=== PATIENT | female | born 1955 | race Caucasian/White ===

== ENCOUNTER → 2016-05-15 | Outpatient (CLI) | payer BC ==
[~2016-05-15] MED LIST: /MOXI40TA PO; ADV250INH INH; AMIT10TA PO; AMOXICILLIN PO; ASCO500T PO; BIAX500T OR; BIOTCAP PO; CALC600T10 PO; CEFT500T OR; CYMB1CAP PO; DIFL150T PO; DULO30CA PO; FERR324T5 OR; FOLI1TAB OR; FOLI1TAB2 PO; IMIT50TA PO; LEVA500T PO; LEVA750T PO; LORA-376 PO; LORA1TAB OR; LORA1TAB12 PO; METH2.5TA PO; METHOTREXATE OR; NAPR500T2 PO; OMEP20CA3 PO; PAIN325T OR; PERC5TAB8 OR; PRED10PA PO; PRED10TA PO; PRED1TA PO; PROZ40CA OR; PROZ40CA PO; RITU10VLL IV; SUMA50TA2 PO; SYMB16INH INH; VENTAER INH; VICO5TA PO; VITA20002 IM; VITA200038 PO; [UNRECOGNIZED DRUG - CODE] SL; [UNRECOGNIZED DRUG - OTHER] PO
--- NOTE | 2016-05-15 15:15 | REP ---
Clinical: Cough. Technique: PA and lateral. Comparison: 09/20/2015. Findings: Postsurgical changes involving the right hemithorax appear relatively stable. Left hemithorax appears clear. Mediastinum and cardiac silhouette within normal limits. No effusion. No pneumothorax. Skeletal structures intact. Impression: Chronic postsurgical changes involving the right hemithorax. No obvious acute cardiopulmonary process. Signed by Matheus Rawls MD 05/15/2016 03:06 P
== END ==
LOC: M WUC 14:44
PROVIDERS: ATTEND Internal Medicine
DX: R05 Cough (principal)

== ENCOUNTER → 2016-05-15 | Outpatient (REF) | payer BC ==
[2016-05-15 21:34] LABS: EOSINOPHILS 4 % (0-5)
== END ==
LOC: M LAB REF 16:52
PROVIDERS: ATTEND Internal Medicine
DX: R05 Cough (principal); J20.9 Acute bronchitis, unspecified

== ENCOUNTER → 2016-06-13 | Outpatient (REF) | payer BC | LOC: M SFHCLERA 11:21 | PROVIDERS: ATTEND Physician Assistant | DX: J02.9 Acute pharyngitis, unspecified (principal) ==

== ENCOUNTER → 2016-06-27 | Outpatient (CLI) | payer BC ==
--- NOTE | 2016-06-27 10:21 | REP ---
Clinical: Cough. Technique: PA and lateral. Comparison: 05/15/2016. Findings: Mediastinum and cardiac silhouette are normal / stable. Postsurgical pleuroparenchymal changes involving the right hemithorax are similar to prior examination. The left hemithorax appears well aerated and clear. No obvious acute process. No effusion. No pneumothorax. Skeletal structures intact. Impression: Chronic pleuroparenchymal and postsurgical changes involving the right hemithorax similar to prior examination. No obvious acute process. If the patient remains symptomatic consider chest CT for further investigation. Signed by Matheus Rawls MD 06/27/2016 10:13 A
== END ==
LOC: M WUC 09:21
PROVIDERS: ATTEND Internal Medicine
DX: R05 Cough (principal)

== ENCOUNTER → 2016-07-13 | Outpatient (REF) | payer BC ==
[2016-07-13 18:59] LABS: FERRITIN 55 NG/ML (8-252)
[2016-07-13 19:14] LABS: FOLATE > 24.0 NG/ML; VITAMIN B12 LEVEL 1544 PG/ML
== END ==
LOC: M LAB REF 18:13
PROVIDERS: ATTEND Internal Medicine
DX: D64.9 Anemia, unspecified (principal)

== ENCOUNTER 2016-07-25 08:16 | Observation (INO) | payer BC ==
[~2016-07-25] VITALS: Ht 160 cm; Wt 54.6 kg
[2016-07-25] MEDS ORDERED: [UNRECOGNIZED DRUG - CODE] PO (08:49)
[2016-07-25] MEDS ORDERED: ALBU17IN INH (08:49)
[2016-07-25] MEDS ORDERED: SYMB16INH (08:49)
[2016-07-25] MEDS ORDERED: BUPR300T34 PO (08:49)
[2016-07-25] MEDS ORDERED: [UNRECOGNIZED DRUG - CODE] PO (08:49)
[2016-07-25] MEDS ORDERED: ASPIRIN 81 MG CHEW TABLET PO ONE (09:15)
--- NOTE | 2016-07-25 09:31 | ECGEPIP ---
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
--- NOTE | 2016-07-25 09:53 | REP ---
REASON: Chest pain. COMPARISON: Multiple latest 06/27/2016. Chronic right basilar changes are noted status quo. The technique utilized in obtaining the radiograph has magnified the cardiac silhouette and accentuated the interstitial markings. Postoperative changes right hilum status quo with streaky right upper lobe opacities and a surgical staple line in the right apical region and right upper lobe perihilar region, all stable. No change in the appearance of the cardiomediastinal silhouette. There is a new subtle right paratracheal soft tissue density. There are no other significant changes. There is no change in the osseous structures. The heart is not enlarged. IMPRESSION: 1. New but subtle right paratracheal density in the suprahilar region of uncertain etiology. Plain film examination cannot exclude reactive lymphadenopathy. This should be correlated clinically and if necessary obtain contrast enhanced CT. 2. Chronic changes as described above. Signed by Dm Saeed DO 07/25/2016 03:02 P
[2016-07-25 09:56] LABS: ALBUMIN 3.3 GM/DL (3.2-5.2); ALBUMIN/GLOBULIN RATIO 0.87 (1.00-1.93); ALKALINE PHOSPHATASE 84 U/L (45-117); ALT/SGPT 16 U/L (12-78); ANION GAP 6 MEQ/L (8-16); AST/SGOT 11 U/L (15-37); BILIRUBIN,DIRECT 0.1 MG/DL (0.0-0.2); BILIRUBIN,TOTAL 0.4 MG/DL (0.2-1.0); BLOOD UREA NITROGEN 9 MG/DL (7-18); CALCIUM LEVEL 8.6 MG/DL (8.5-10.1); CARBON DIOXIDE LEVEL 28 MEQ/L (21-32); CHLORIDE LEVEL 104 MEQ/L (98-107); CREATININE FOR GFR 0.75 MG/DL (0.55-1.02); GLOMERULAR FILTRATION RATE > 60.0 (>51); GLUCOSE, FASTING 84 MG/DL (70-105); POTASSIUM SERUM 4.2 MEQ/L (3.5-5.1); SODIUM LEVEL 138 MEQ/L (136-145); TOTAL PROTEIN 7.1 GM/DL (6.4-8.2)
[2016-07-25 09:58] LABS: BASO % 0.3 % (0.0-1.0); EOS # 0.7 K/mm3 (0.0-0.50); EOS % 10.5 % (0.0-3.0); LARGE UNSTAINED CELL # 0.1 K/mm3 (0.0-0.4); LARGE UNSTAINED CELL % 1.3 % (0.0-4.0); LYMPH # 0.6 K/mm3 (1.5-4.5); LYMPH % 9.9 % (24.0-44.0); MEAN CORPUSCULAR HEMOGLOBIN 32.1 pg (27.0-33.0); MEAN CORPUSCULAR HGB CONC 33.9 g/dl (32.0-36.5); MEAN CORPUSCULAR VOLUME 94.8 fl (80.0-96.0); MONO # 0.2 K/mm3 (0.0-0.8); MONO % 3.4 % (0.0-5.0); NEUTROPHILS # 4.7 K/mm3 (1.8-7.7); NEUTROPHILS % 74.6 % (36.0-66.0); PLATELET COUNT, AUTOMATED 401 k/mm3 (150-450); RED CELL DISTRIBUTION WIDTH 16.2 % (11.5-14.5); WHITE BLOOD COUNT 6.3 K/mm3 (4.0-10.0)
[2016-07-25] MEDS ORDERED: ISOVUE-370 76% 100ML VIAL (Q9967) As Ordered ONE (10:36)
--- NOTE | 2016-07-25 12:10 | REP ---
CT ANGIOGRAM OF THE CHEST: TECHNIQUE: Axial contrast enhanced images from the thoracic inlet to the upper abdomen using 100 mL Isovue 370 intravenous contrast material with multiplanar reformations. COMPARISON: 08/24/2015. I see no CT evidence of pulmonary embolism. Chronic postsurgical and postradiation changes are again seen on the right unchanged. There is an area of consolidation with associated bronchiectasis in the right upper hemithorax with other areas of scattered fibrotic scarring. A new subpleural nodular density in the left upper lobe posteriorly measures 8 mm in diameter. A new pleural based oval low density mass measures 3.0 x 1.8 cm with surrounding pleural thickening. Nodular density along the inferior left fissure measures 6 x 4 mm. I see no pleural or pericardial effusion. No new adenopathy is seen in the chest. There is no evidence of thoracic aortic aneurysm or dissection. Visualized upper abdominal structures have not definitely changed. There is diffuse thickening of the adrenal glands which appear similar to prior studies. There are degenerative changes of the spine. IMPRESSION: No CT evidence of pulmonary embolism. Three nodular structures left lung are new compared to the prior study of 08/24/2015. Signed by Jaya Horvath MD 07/25/2016 05:25 P
[2016-07-25] MEDS ORDERED: KETOROLAC 30 MG/ML VIAL (J1885) IV ONE (14:00)
[2016-07-25] MEDS ORDERED: FLUO20CA9 PO (14:40)
[2016-07-25] MEDS ORDERED: ASPI1TAB PO (14:43)
[2016-07-25] MEDS ORDERED: META800T82 PO (14:43)
[2016-07-25] MEDS ORDERED: PRAV40TA2 PO (14:43)
[2016-07-25] MEDS ORDERED: ALB2.5NEB INH (14:43)
[2016-07-25] MEDS ORDERED: IPRATROPIUM 0.5MG/ALBUTEROL 2.5MG INH SOL UD 3ML (DUONEB)(J7620) NEB PRN (16:15)
[2016-07-25] MEDS ORDERED: cefTRIAXone SOD 1 GM in D5W MINI-BAG PLUS 50 ML IV SCH (17:00)
--- NOTE | 2016-07-25 17:00 | HPEPDOC ---
General Date of Admission Jul 25, 2016 at 15:58 Primary Care Physician: Lakeshia Hernandez Chief Complaint The patient is a 61-year-old female admitted with a reason for visit of Chest Pain, Dyspnea. Source: Patient Exam Limitations: No limitations Timing/Duration: 4-6 hours History of Present Illness Ms. Magana is a 61 y/o female with past medical history of non-small cell lung cancer status post right lobectomy in 2001, STEMI with cardiac catheterization and stent placement September 2015, rheumatoid arthritis, anxiety, depression, chronic anemia who presents today with a chief complaint of shortness of breath and left shoulder pain that began this morning when she woke up. The patient states that when she woke up she felt short of breath when she tried to ambulate after arising from bed, she also had very severe achy left shoulder pain that made it impossible for her to move her shoulder. The patient denied having associated fever, chest pain, vomiting , sweating or palpitations this morning. She states that she has been nauseous for the past 2 days with decreased appetite and lightheaded for the past 2 months, has lost 21 pounds between 6-8 weeks. She states that she was recently diagnosed with asthmatic bronchitis by her primary care doctor and then she has been coughing for the past month but that it has been getting better. She states she also has been constipated for the past 2 weeks and that her primary care doctor gave her senna which has not helped. Denies blood in stool or urine or pain with urination or defecation. Denies change in vision but states that she does have history of headache/migraine. In regards to her history of lung cancer she was followed by the local pulmonology group and released from the practice in the year [address] exams were stable in regards to her prior lung cancer, she also sees a local bindery helper in surgical specialty center [facility] for her heart history. The patient does not complain of shortness of breath on questioning in ED but does still complain of left shoulder pain; she is unsure if her left shoulder pain is due to her rheumatoid arthritis and admits that she has had some dull achy, stiff left shoulder pain in the same area for the past 2 days, but this morning was at its worst. Home Medications Scheduled Ascorbic Acid (Ascorbic Acid) 500 Mg Tab 500 MG PO DAILY (Reported) Aspirin (Aspirin 81) 81 Mg Tab 81 MG PO DAILY (Reported) Biotin (Vitamin H) (Biotin 5000) 5 Mg Cap 10 MG PO DAILY (Reported) Budesonide/Formoterol (Symbicort 160-4.5 Mcg/Act) 60 Puff/Inhaler Aers 2 PUFFS INH BID (Reported) Bupropion HCl (Bupropion HCl Xl) 300 Mg Tab 300 MG PO DAILY (Reported) Calcium (Calcium) 600 Mg Tab 600 MG PO DAILY (Reported) Cholecalciferol (Vitamin D-3) 2,000 Unit Tab 2,000 UNIT PO DAILY (Reported) Cyanocobalamin (Vitamin B-12) 5,000 Mcg Sub 5,000 MCG SL DAILY (Reported) Fluoxetine Hcl (Fluoxetine HCl) 20 Mg Cap 60 MG PO DAILY (Reported) Folic Acid (Folic Acid) 1 Mg Tab 1 MG PO DAILY (Reported) Lorazepam (Lorazepam) 0.5 Mg Tab 0.5 MG PO QHS (Reported) Metaxalone (Metaxalone) 800 Mg Tab 800 MG PO QHS (Reported) Methotrexate (Methotrexate) 2.5 Mg Tab 15 MG PO QWEEK (Reported) FRIDAYS Omeprazole (Omeprazole) 20 Mg Cap 20 MG PO DAILY (Reported) Prasugrel Hydrochloride (Effient) 5 Mg Tab 5 MG PO DAILY (Reported) Pravastatin Sod (Pravastatin Sodium) 40 Mg Tab 40 MG PO QHS (Reported) Scheduled PRN (Treximet 10-60 mg) 1 Tab Tab 1 TAB PO PRN MIGRAINE (Reported) Albuterol Sulfate (Ventolin Hfa) 200 Puff/8 Gm Aers 2 PUFFS INH QID PRN PRN SHORTNESS OF BREATH (Reported) Albuterol Sulfate (Albuterol Sulfate) 2.5 Mg/0.5 Ml Neb 2.5 MG INH PRN SOB/ WHEEZING (Reported) Allergies Coded Allergies: Sulfa Drugs (Verified Adverse Reaction, Intermediate, GI UPSET, 06/11/13) Past Medical History Medical History Non-small cell lung cancer status post right lobectomy, chemotherapy/radiation 2001 STEMI status post cardiac catheterization and stent placement September 2015 Rheumatoid arthritis Anxiety Depression Chronic anemia Surgical History Tubal ligation Right lobectomy Family History Mother had inflammatory breast cancer Father had hypertension Social History * Smoker: former Smoker (quit 2 years ago, prior to this had a 20 year pack history one pack per day) Alcohol: Denies Drugs: denies Psychosocial History: No pertinent psych hx 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 Review of Symptoms Constitutional: Denies: Chills, Fever Eyes: Denies: Conjunctivae inflammation, Eyelid inflammation, Pain, Vision change ENT: Reports: Head Aches Skin: Denies: Lesions, Rash Pulmonary: Reports: Cough, Dyspnea Cardiovascular: Denies: Chest Pain, Edema, Orthopnea, Palpitations Gastrointestinal: Reports: Constipation, Nausea, Denies: Abdominal Pain, Diarrhea, Vomiting Genitourinary: Denies: Dysuria Musculoskeletal: Reports: Shoulder Pain (left shoulder pain, achy, stiff.) Neurological: Denies: Numbness, Weakness Psych: Reports: Mood Normal Physical Examination General Exam: Positive: Alert, Cooperative, No Acute Distress Eye Exam: Positive: Conjunctiva & lids normal, EOMI, Negative: Ptosis, Sclera icteric ENT Exam: Positive: Nares Patent Neck Exam: Positive: JVD, Supple Chest Exam: Positive: Clear to auscultation, Negative: Rales, Rhonchi, Wheezing Heart Exam: Positive: Normal S1, Normal S2, Rate Normal, Negative: Tachycardic Telemetry: Positive: No significant arrhythmia Abdomen Exam: Positive: Normal bowel sounds, Soft, Negative: BS Hyperactive, BS Hypoactive, Hepatospenomegaly, Tenderness Extremity Exam: Negative: Clubbing, Cyanosis, Edema Psych Exam: Positive: Mental status NL Vital Signs Vital Signs Date Time Temp Pulse Resp B/P Pulse Ox O2 Delivery O2 Flow Rate FiO2 07/25/16 15:40 94 96 07/25/16 14:10 120/60 Laboratory Data Labs 24H Laboratory Tests 2 07/25/16 09:19: Aspartate Amino Transf (AST/SGOT) 11L, Alanine Aminotransferase (ALT/SGPT) 16, Alkaline Phosphatase 84, Total Bilirubin 0.4, Direct Bilirubin 0.1, Albumin 3.3 , Albumin/Globulin Ratio 0.87L, Anion Gap 6L, B-Type Natriuretic Peptide 90.1, White Blood Count 6.3, Red Blood Count 3.61L, Hemoglobin 11.6L, Hematocrit 34.2L , Mean Corpuscular Volume 94.8, Mean Corpuscular Hemoglobin 32.1, Mean Corpuscular Hemoglobin Concent 33.9, Red Cell Distribution Width 16.2H, Platelet Count 401, Neutrophils (%) (Auto) 74.6H, Lymphocytes (%) (Auto) 9.9L, Monocytes (%) (Auto) 3.4, Eosinophils (%) (Auto) 10.5H, Basophils (%) (Auto) 0.3 , Neutrophils # (Auto) 4.7, Lymphocytes # (Auto) 0.6L, Monocytes # (Auto) 0.2, Eosinophils # (Auto) 0.7H, Basophils # (Auto) 0.0, Calcium Level 8.6, Creatine Kinase MB 1.0, Creatine Kinase MB Relative Index 1.20, Glomerular Filtration Rate > 60.0, Large Unclassified Cells # 0.1, Large Unclassified Cells % 1.3, Total Creatine Kinase 83, Total Protein 7.1, Troponin I < 0.02 07/25/16 12:18: Creatine Kinase MB 1.0, Creatine Kinase MB Relative Index 1.44, Total Creatine Kinase 69, Troponin I < 0.02 CBC/BMP Laboratory Tests 07/25/16 09:19 Red Blood Count 3.61 L, Mean Corpuscular Volume 94.8, Mean Corpuscular Hemoglobin 32.1, Mean Corpuscular Hemoglobin Concent 33.9, Red Cell Distribution Width 16.2 H, Neutrophils (%) (Auto) 74.6 H, Lymphocytes (%) (Auto ) 9.9 L, Monocytes (%) (Auto) 3.4, Eosinophils (%) (Auto) 10.5 H, Basophils (%) (Auto) 0.3, Neutrophils # (Auto) 4.7, Lymphocytes # (Auto) 0.6 L, Monocytes # ( Auto) 0.2, Eosinophils # (Auto) 0.7 H, Basophils # (Auto) 0.0 Problems (1) Dyspnea Status: Acute Response to Treatment: Stable Problem Text: The patient does not appear short of breath on exam Chest x-ray and subsequent CT chest showed new lung nodular structures, new from prior study in August 2015 SOB possibly secondary to pneumonia will began antibiotic therapy & see if pt improves in next 24 hrs First set of troponins negative, will trend EKG ordered for AM, first EKG in ED no sign of NH or arrhythmia Fibreglass Gun Hand nonfarm animal caretaker spoken to, recommend observing pt and performing serial enzymes, cardiac markers ECHO pending Aspiring, Effient and pravastatin continue home meds BNP 90.1 Patient does not appear edematous on exam minimal JVD appreciated DuoNeb ordered as needed Patient does not wear oxygen at home (2) CAP (community acquired pneumonia) Status: Acute Response to Treatment: Stable Problem Text: Possible source of dyspnea CXR and f/u CT showed new nodular structures in lung, new from prior comparative study August 2015 begin antibiotic therapy & monitor for improvement in next 24 hours blood,urine and sputum cx pending afebrile, WBC 6.3 (3) Shoulder pain Status: Acute Response to Treatment: Stable Problem Text: Ibuprofen for pain Left shoulder x-ray pending CXR and f/u CT in ED showed new nodular structures in lung, not there from prior study August 2015 EKG in emergency department appeared without concern for NH or arrhythmia etiology Echo pending continue home methotrexate for RA continue to monitor (4) History of lung cancer Status: Chronic Response to Treatment: Stable Problem Text: s/p right lobectomy 2001 and chemo/radiation treatment spoke to thermite bomb loader nonfarm animal caretaker, recommended work up outpt. once pt is d/c- may include PET scan or biopsy for further evaluation. Imaging in ED showed new nodular lung structures continue to monitor (5) Anxiety Status: Chronic Response to Treatment: Stable Problem Text: Continue home medications (6) Rheumatoid arthritis Status: Chronic Response to Treatment: Stable Problem Text: Continue methotrexate (7) Anemia Status: Chronic Response to Treatment: Stable Problem Text: h/h stable 11.6/34.2 (8) Depression Status: Chronic Response to Treatment: Stable Problem Text: Continue home medications (9) DVT prophylaxis Status: Acute Problem Text: SCD teds Plan / VTE VTE Prophylaxis Ordered?: Yes GME ATTESTATION GME ATTESTATION My preceptor for this patient encounter was physically present in the building during the encounter and was fully available. As needed, all aspects of the patient interview, examination, medical decision making process, and medical care plan development were reviewed and approved by the preceptor. Preceptor is aware and concurs with the plan as stated in the body of this note and will attest to such by his/her cosignature. COLE ZHANG DO Jul 25, 2016 17:00
--- NOTE | 2016-07-25 17:56 | REP ---
LEFT SHOULDER, THREE VIEWS: HISTORY: Shoulder pain. There is no acute fracture or dislocation. The joint spaces are normal in appearance. IMPRESSION: There is no acute fracture or dislocation. Signed by Isaiah Davis MD 07/26/2016 08:24 A
[2016-07-25] MEDS: DOXYCYCLINE HYCLATE 100 MG in D5W MINI-BAG PLUS 100 ML IV SCH (18:00)
[2016-07-25] MEDS ORDERED: ACETAMINOPHEN 325 MG TAB As Ordered ONE (19:05)
[2016-07-25] MEDS: ACETAMINOPHEN TAB 650MG DOSE (2X325MG) PO PRN (19:17)
[2016-07-25] MEDS ORDERED: METAXALONE 800 MG TABLET PO SCH (21:00)
[2016-07-25] MEDS ORDERED: LORazepam 0.5 MG TAB PO SCH (21:00)
[2016-07-25] MEDS ORDERED: PRAVASTATIN 20 MG TAB PO SCH (21:00)
[2016-07-25 22:25] VITALS: BP 112/57
[2016-07-25] MEDS: IBUPROFEN 400 MG TAB PO SCH (22:27)
[2016-07-26] VITALS: BP 121/56
[2016-07-26 04:00] VITALS: BP 117/55
[2016-07-26] MEDS ORDERED: ACETAMINOPHEN TAB 650MG DOSE (2X325MG) As Ordered ONE (04:12)
[2016-07-26] MEDS: ACETAMINOPHEN TAB 650MG DOSE (2X325MG) PO PRN (04:14)
--- NOTE | 2016-07-26 07:31 | ECGEPIP ---
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
[2016-07-26 07:41] LABS: BASO % 0.3 % (0.0-1.0); EOS # 0.8 K/mm3 (0.0-0.50); LARGE UNSTAINED CELL # 0.1 K/mm3 (0.0-0.4); LARGE UNSTAINED CELL % 1.7 % (0.0-4.0); LYMPH # 0.6 K/mm3 (1.5-4.5); LYMPH % 10.3 % (24.0-44.0); MEAN CORPUSCULAR HGB CONC 32.7 g/dl (32.0-36.5); MONO # 0.2 K/mm3 (0.0-0.8); MONO % 3.5 % (0.0-5.0); NEUTROPHILS # 4.5 K/mm3 (1.8-7.7); NEUTROPHILS % 72.2 % (36.0-66.0); PLATELET COUNT, AUTOMATED 381 k/mm3 (150-450); RED CELL DISTRIBUTION WIDTH 16.4 % (11.5-14.5); WHITE BLOOD COUNT 6.2 K/mm3 (4.0-10.0)
[2016-07-26 07:59] LABS: ANION GAP 6 MEQ/L (8-16); BLOOD UREA NITROGEN 11 MG/DL (7-18); CALCIUM LEVEL 8.4 MG/DL (8.5-10.1); CARBON DIOXIDE LEVEL 26 MEQ/L (21-32); CHLORIDE LEVEL 108 MEQ/L (98-107); CREATININE FOR GFR 0.77 MG/DL (0.55-1.02); GLOMERULAR FILTRATION RATE > 60.0 (>51); GLUCOSE, FASTING 86 MG/DL (70-105); POTASSIUM SERUM 4.3 MEQ/L (3.5-5.1); SODIUM LEVEL 140 MEQ/L (136-145)
[2016-07-26 08:00] VITALS: BP 118/58
[2016-07-26] MEDS: IBUPROFEN 400 MG TAB PO SCH (08:42)
[2016-07-26] MEDS: DOXYCYCLINE HYCLATE 100 MG in D5W MINI-BAG PLUS 100 ML IV SCH (08:43)
[2016-07-26] MEDS ORDERED: buPROPion **XL** TABLET 150MG (WELLBUTRIN XL) PO SCH (09:00)
[2016-07-26] MEDS ORDERED: PRASUGREL 10 MG TAB (EFFIENT) PO SCH (09:00)
[2016-07-26] MEDS ORDERED: ASPIRIN 81 MG ENTERIC TAB PO SCH (09:00)
[2016-07-26] MEDS ORDERED: FLUoxetine 20 MG CAP PO SCH (09:00)
[2016-07-26] MEDS ORDERED: OMEPRAZOLE 20 MG CAP PO SCH (09:00)
[2016-07-26 12:00] VITALS: BP 133/63
[2016-07-26] MEDS ORDERED: DOXY-278 PO (14:06)
[2016-07-26] MEDS ORDERED: IBUP40TA PO (14:06)
--- NOTE | 2016-07-26 15:37 | DSES ---
DATE OF ADMISSION: 07/25/2016 DATE OF DISCHARGE: 07/26/2016 PRIMARY CARE PROVIDER: Dr. Santoyo. AMBULANCE MECHANIC: [facility]. ADMISSION/DISCHARGE DIAGNOSES: 1. Left-sided chest pain, ruled out acute coronary syndrome. 2. Recurrent bronchitis, symptomatically stable. 3. Dyspnea, resolved. 4. Right shoulder pain, resolved. 5. Pulmonary nodules with history of lung cancer. 6. Anxiety. 7. Rheumatoid arthritis. 8. Anemia. 9. Depression. BRIEF HOSPITAL COURSE: Ms. Magana is a 61-year-old female admitted last evening for dyspnea with chest pain radiating to the left arm. She does have a previous history of myocardial infarction (PA) that she had stent placement at [facility] in 2001. She has not had a cardiac catheterization since then, nor has she had a stress test. At any rate, her CT angiogram of the chest was negative for pulmonary embolism (PE) but it did show new nodular densities with recommendation of followup for either a CT scan or PET scan sometime in the next few months. Her EKG showed no changes. Her troponins remained negative through the night and she can followup with Dr. Henderson as an outpatient for this. The case was discussed with Dr. Richardson. As far as further workup for suspicious lung nodules, he suggested that she followup outpatient and if there was a suspected underlying bronchitis or pneumonia to finish treatment for this first. Again, symptomatically, her symptoms have resolved. For further information regarding intake physical, laboratories, diagnostics, please refer to the history and physical. PHYSICAL EXAMINATION: Temperature 98.1, pulse 96, respiratory rate 18, blood pressure 133/63, SPO2 is 98% on room air. GENERAL: The patient appears to be in no acute distress, is alert and oriented. HEENT: Unremarkable. LUNGS: Clear. HEART: Regular rate and rhythm. ABDOMEN: Soft. EXTREMITIES: No edema. No calf tenderness. LABORATORY DATA: White count 6.2, hemoglobin 10.8, and platelets are 381,000. Sodium 140, potassium 4.3, chloride 108, bicarbonate 26, anion gap 6, BUN 11, creatinine 0.77, glucose is 86, troponin less than 0.02 on four occasions. Blood cultures pending times two. DISCHARGE CONDITION: Good. DISPOSITION: Discharge to home. DISCHARGE MEDICATIONS: - doxycycline 100 mg twice a day for seven more days - ibuprofen 400 mg twice a day as needed - Ventolin inhaler as directed - albuterol nebulizer as directed - vitamin C 500 mg daily - aspirin 81 mg daily - biotin 10 mg daily - Symbicort 160/4.5 mcg two inhalations twice a day - Wellbutrin 300 mg daily - calcium 600 mg daily - vitamin D3 2000 units daily - vitamin B12 5000 mcg sublingually daily - fluoxetine 60 mg by mouth daily - folic acid 1 mg daily - lorazepam 0.5 mg at bedtime - metaxalone 800 mg at bedtime - methotrexate 15 mg weekly - omeprazole 20 mg daily - Effient 5 mg daily - pravastatin 40 mg at bedtime - Treximet 10/60 mg as needed for migraines DISCHARGE INSTRUCTIONS: Discharge to home. Followup with her primary care provider within the next week, Dr. Henderson or cardiology at [facility] within the next 1-2 weeks, and followup with outpatient pulmonology group within the next 1-2 weeks for further delineation of workup either with PET scan, CT scan or biopsy of questionable nodules found on CT angiogram of the chest. She is instructed to seek out medical attention if worsening symptoms should occur. She voices understanding. Discharge took 35 minutes.
--- NOTE | 2016-07-26 21:07 | ECHO ---
DATE OF PROCEDURE: 07/26/2016 REFERRING PHYSICIAN: Adriana Ni MD PATIENT LOCATION: Emergency Department, room 18 REASON FOR ECHOCARDIOGRAM: Shortness of breath. 2D MEASUREMENTS: IVS: 0.9 cm LV: 4.3 cm LVPW: 1.0 cm LA: 3.0 cm Aorta: 2.7 cm IVC: 1.5 cm DOPPLER MEASUREMENTS: Peak velocity across the aortic valve: 1.3 m/s Peak velocity across the LVOT: 0.79 m/s Mitral E: 0.72, Mitral A: 0.95, with a ratio of 0.8 2D COMMENTS: 1. Normal left ventricular size, wall thickness and normal global left ventricular systolic function. Left ventricular systolic ejection fraction is estimated at 60 to 65%. 2. Normal left atrium. Normal right atrium and right ventricle. 3. The atrial septum appeared to be normal without evidence of defect or shunt. 4. Normal aortic root. 5. No pericardial effusion seen. 6. Minimally calcified aortic valve with normal leaflet excursion. Minimally calcified mitral annulus with normal anterior mitral valve leaflet motion. Normal tricuspid valve. The pulmonic valve was not well visualized. 7. The inferior vena cava was normal in size, central venous pressure is most likely normal. DOPPLER: It detects mild aortic regurgitation, trace mitral regurgitation, trace tricuspid regurgitation. Abnormal relaxation pattern was noted across the mitral valve leaflets as well as the mitral valve annulus consistent with grade 1 left ventricular diastolic dysfunction. IMPRESSION: 1. Normal global left ventricular systolic function. There are features of left ventricular diastolic dysfunction manifested by abnormal relaxation, grade 1. 2. Aortic valve sclerosis with mild aortic regurgitation. 3. Mitral annulus calcification with trace mitral regurgitation. MTDD
--- NOTE | 2016-07-27 15:56 | ECGEPIP ---
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
[2016-07-28] MEDS ORDERED: METHOTREXATE 2.5 MG TAB (J8610) PO SCH (21:00)
== END 2016-07-26 14:02 | disposition home or self-care (01) ==
LOC: M ED 12:29 → M ED INP 15:58
PROVIDERS: ADMIT Internal Medicine; ATTEND Hospitalist
DX: R07.89 Other chest pain (principal); R06.00 Dyspnea, unspecified; M25.511 Pain in right shoulder; R91.8 Other nonspecific abnormal finding of lung field; Z85.118 Personal history of other malignant neoplasm of bronchus and lung; F41.9 Anxiety disorder, unspecified; M06.9 Rheumatoid arthritis, unspecified; D64.9 Anemia, unspecified; F32.9 Major depressive disorder, single episode, unspecified; I25.2 Old myocardial infarction; Z98.61 Coronary angioplasty status
CPT/HCPCS: 36415; 71010; 71275; 73030; 80048; 80076; 82550; 82553; 83880; 85025; 87040; 93005; 93041; 94760; 96365; 96366; 96367; 96375; 99291; J0696; J1885; Q9967

== ENCOUNTER → 2016-08-23 | Outpatient (CLI) | payer BC ==
[~2016-08-23] MED LIST changes: +ALB2.5NEB INH; +ALBU17IN INH; +ASPI1TAB PO; +BUPR300T34 PO; +DOXY-278 PO; +FLUO20CA9 PO; +IBUP40TA PO; +META800T82 PO; +PRAV40TA2 PO; +SYMB16INH; +[UNRECOGNIZED DRUG - CODE] PO; +[UNRECOGNIZED DRUG - CODE] PO
--- NOTE | 2016-08-23 14:29 | REP ---
MR BRAIN WITHOUT AND WITH CONTRAST: HISTORY: Altered mental status. Contrast: ProHance 10 mL. COMPARISON: 06/12/2002 There are no areas of abnormal signal intensity in the brain. There is no intraparenchymal hemorrhage, infarct, mass or midline shift. 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 There is no abnormal enhancement. A small __developmental__ venous anomaly is present in the right cerebellum. The ventricular system and cortical sulci are dilated consistent with mild volume loss. There is no extracerebral collection. The sinuses are clear. IMPRESSION: Mild volume loss. ? Signed by Isaiah Davis MD 08/23/2016 02:42 P
--- NOTE | 2016-08-23 15:02 | REP ---
PET/CT: History: Stage III B non-small cell lung carcinoma. Altered mental status. Comparisons: Comparison PET-CT study April 14, 2010. Comparison CT study of the chest July 25, 2016 showed new nodular densities in the left chest. Postop changes on the right. TECHNIQUE: 60 minutes following the intravenous injection of a 8.0 mCi dose of F-18 FDG, three-dimensional PET scintigraphy is acquired from the skull base to the proximal thighs. Triplanar noncontrast CT scanning is acquired through the same anatomic range for attenuation correction, and image registration with scan parameters optimized to minimize radiation exposure to the patient. PET scintigraphy and CT datasets were fused and displayed on a workstation with multiplanar and projection display capability. PET/CT Findings: The posterior segment left upper lobe nodule 8 mm in diameter seen on accompanying CT study shows mildly hypermetabolic uptake with maximum standard uptake value of 2.2. There is hypermetabolic uptake in the posterior pleural-based lesion in the right lower lobe. Maximum standard uptake value in this lesion is 4.9. There is some linear mildly hypermetabolic uptake extending in the associated pleural thickening extending lateral to this lesion posteriorly. The tiny nodule in the major fissure at the left base seen on recent CT study is not hypermetabolic. There is a normal size amanda focus of hypermetabolic uptake in the left inferior and posterior hilus with maximum standard uptake value 4.1. There is more linear pleural hypermetabolic uptake inferiorly and posteromedially in the left lung base consistent with pleural disease, maximum standard uptake value 3.7. No other abnormal thoracic hypermetabolic uptake is seen. Head and neck soft tissues are unremarkable. In the abdomen and pelvis, there are small bilateral hypermetabolic adrenal masses. Maximum standard uptake value in the right adrenal mass is 7.5 and that in the left is 4.4. These are suspicious for metastasis. They are unchanged from the recent prior chest CT. No other abnormal abdominal or pelvic hypermetabolic uptake is seen. Impression: Pulmonary parenchymal and pleural hypermetabolic uptake in the left chest as well as bilateral hypermetabolic small adrenal masses suspicious for metastatic disease. These are new findings from the 2010 prior study. Signed by Luis Orosco MD 08/23/2016 03:50 P
== END ==
LOC: M PLARAD 08:25 → M RAD 08:25
PROVIDERS: ATTEND Internal Medicine Pulmonary Disease
DX: R93.7 Abnormal findings on diagnostic imaging of other parts of musculoskeletal system (principal); R19.09 Other intra-abdominal and pelvic swelling, mass and lump; R26.89 Other abnormalities of gait and mobility
CPT/HCPCS: 70553; 78815; A9552; A9576

== ENCOUNTER → 2016-08-31 | Outpatient (REF) | payer BC ==
[2016-08-31 14:22] LABS: INR 1.04
== END ==
LOC: M LAB REF 13:12
PROVIDERS: ATTEND Internal Medicine Pulmonary Disease
DX: Z01.812 Encounter for preprocedural laboratory examination (principal); R91.8 Other nonspecific abnormal finding of lung field

== ENCOUNTER → 2016-09-06 | Outpatient (CLI) | payer BC ==
--- NOTE | 2016-09-06 14:10 | REP ---
WHOLE BODY RADIONUCLIDE BONE SCAN: HISTORY: Left shoulder pain. History of stage III B non-small cell lung carcinoma. Comparison PET-CT study August 23, 2016. TECHNIQUE: 20.7 mCi of technetium 99m MDP is injected and standard whole body bone scan imaging is acquired. No comparison bone scan. FINDINGS: There is a focus of rather intensely increased uptake involving the left-sided pedicle at the T12 vertebral body. This is suspicious for metastatic lesion. There is also asymmetric uptake in the region of the manubrium on the left side near the manubrio-clavicular joint. There is a focus of increased uptake in the region of the ischium on the left. There is some joint space narrowing and sclerosis here on recent CT study and this may relate to arthritis. This is suspicious. There is no abnormal or asymmetric uptake in either shoulder. There is also an area of focally increased uptake in what appears to be the third metacarpophalangeal joint of the right hand. There is a mild levoconvex curvature in the lumbar spine. There is uptake in bilateral kidneys and in the urinary bladder. IMPRESSION: Two suspicious foci of increased bony uptake involving the left pedicle at T12 and the left inferior pubic ramus or ischium in the pelvis. Arthritic uptake in the left manubrio-clavicular joint and in the right hand. Signed by Luis Orosco MD 09/06/2016 04:31 P
--- NOTE | 2016-09-15 12:47 | REP ---
CT GUIDED LEFT LOWER LOBE LUNG BIOPSY: The procedure was performed under the direct supervision of Dr. Horvath. The patient has a history of a 3 x 1.8 cm oval low density mass seen in the left lower lobe on a previous CT scan dated 07/25/2016. The risks and benefits of the procedure were explained to the patient and informed consent was obtained. The left lower lobe lung mass was localized using CT guidance. The skin was prepped and draped in a sterile fashion. 1% Xylocaine was used as a local anesthetic. Using CT guidance, a 19/20 gauge coaxial needle biopsy system was inserted and advanced into the mass. Four core biopsy samples were obtained and sent to the lab. The patient tolerated the procedure well and there were no immediate complications. After the appropriate amount of monitored convalescence, the patient was discharged from the department. Reviewed by JACINTO Corral 09/15/2016 03:50 PEdited and Signed by Jaya Horvath MD 09/15/2016 05:28 P
== END ==
LOC: M RAD 09:34
PROVIDERS: ATTEND Internal Medicine Pulmonary Disease
DX: R93.7 Abnormal findings on diagnostic imaging of other parts of musculoskeletal system (principal)

== ENCOUNTER → 2016-09-15 | Outpatient (CLI) | payer BC ==
[~2016-09-15] MED LIST changes: +LIDOCAINE 1% MDV 20ML VIAL As Ordered ONE
== END ==
LOC: M RADPRO 08:38
PROVIDERS: ATTEND Internal Medicine Pulmonary Disease
DX: D38.1 Neoplasm of uncertain behavior of trachea, bronchus and lung (principal); R91.8 Other nonspecific abnormal finding of lung field; Z88.2 Allergy status to sulfonamides; F17.210 Nicotine dependence, cigarettes, uncomplicated

== ENCOUNTER → 2016-10-04 | Outpatient (CLI) | payer BC ==
[~2016-10-04] MED LIST changes: +AMOX875T2 PO; +ASPI81TAEC PO; +AUGM875T28 PO; +BENZ100C5 PO; +CALC1TAB30 PO; -CALC600T10 PO; +CALC600T31 PO; +CLOT1CRE TOP; +DEXA4TA PO; +FLUO20CA19 PO; -FLUO20CA9 PO; +FLUO60TA PO; -FOLI1TAB2 PO; +FOLI1TAB4 PO; +LEVA0.636 INH; +LEVA1TAB2 PO; -LEVA500T PO; -LEVA750T PO; +LEVA750T7 PO; -LORA-376 PO; +LORA0.5T11 PO; +META1TAB22 PO; -META800T82 PO; +NAPR500T3 PO; +NITR4TASL SL; +ONDA8TAB7 PO; +OXYC-517 PO; +PRED10TA2 PO; +PRED20TA PO; +PRED5TA PO; +PROC10TA PO; +RIZA10TA4 PO; +SUMA25TA3 PO; +VITA-193 PO; +[UNRECOGNIZED DRUG - CODE] SL; -[UNRECOGNIZED DRUG - CODE] SL
--- NOTE | 2016-10-04 16:36 | REP ---
CT GUIDED RIGHT ADRENAL MASS BIOPSY: The procedure was performed under the direct supervision of Dr. Orosco. The patient has a history of bilateral hypermetabolic small adrenal masses seen on a previous PET scan performed on 08/23/2016. The risks and benefits of the procedure were explained to the patient and informed consent was obtained. The right adrenal mass was localized using CT guidance. The skin was prepped and draped in a sterile fashion. 1% Xylocaine was used as a local anesthetic. Using CT guidance a 19/20 gauge coaxial needle biopsy system was inserted and then advanced into the mass. 12 core biopsy samples were obtained and sent to the lab. The patient tolerated the procedure well and there were no immediate complications. After the appropriate amount of monitored convalescence the patient was discharged from the department. Reviewed by JACINTO Corral 10/04/2016 04:39 PEdited and Signed by Luis Orosco MD 10/04/2016 05:01 P
== END ==
LOC: M RADPRO 08:12
PROVIDERS: ATTEND Internal Medicine Pulmonary Disease
DX: C79.71 Secondary malignant neoplasm of right adrenal gland (principal); Z85.118 Personal history of other malignant neoplasm of bronchus and lung; Z87.891 Personal history of nicotine dependence; Z88.2 Allergy status to sulfonamides; Z79.899 Other long term (current) drug therapy; Z79.82 Long term (current) use of aspirin

== ENCOUNTER 2016-11-09 19:10 | Inpatient (IN) | payer BC ==
[~2016-11-09] VITALS: Ht 157.5 cm; Wt 54.6 kg
[~2016-11-09 19:10] MED LIST changes: -AMOX875T2 PO; -ASPI81TAEC PO; -AUGM875T28 PO; -BENZ100C5 PO; -CALC1TAB30 PO; -CLOT1CRE TOP; -DEXA4TA PO; -FLUO60TA PO; -LEVA0.636 INH; -LIDOCAINE 1% MDV 20ML VIAL As Ordered ONE; -NITR4TASL SL; -ONDA8TAB7 PO; -OXYC-517 PO; -PRED10TA2 PO; -PRED20TA PO; -PRED5TA PO; -PROC10TA PO; -RIZA10TA4 PO; -SUMA25TA3 PO; -VITA-193 PO
[2016-11-09] MEDS ORDERED: NS 500 ML IV ONE (20:15)
[2016-11-09] MEDS ORDERED: ACETAMINOPHEN 325 MG TAB PO ONE (20:15)
[2016-11-09] MEDS ORDERED: KETOROLAC 30 MG/ML VIAL (J1885) IV ONE (20:15)
[2016-11-09 20:36] LABS: BASO % 0.3 % (0.0-1.0); EOS % 9.4 % (0.0-3.0); LARGE UNSTAINED CELL # 0.1 K/mm3 (0.0-0.4); LARGE UNSTAINED CELL % 0.7 % (0.0-4.0); LYMPH # 0.3 K/mm3 (1.5-4.5); LYMPH % 2.8 % (24.0-44.0); MEAN CORPUSCULAR HEMOGLOBIN 29.5 pg (27.0-33.0); MEAN CORPUSCULAR HGB CONC 32.3 g/dl (32.0-36.5); MEAN CORPUSCULAR VOLUME 91.3 fl (80.0-96.0); MONO # 0.2 K/mm3 (0.0-0.8); MONO % 1.6 % (0.0-5.0); NEUTROPHILS # 8.7 K/mm3 (1.8-7.7); NEUTROPHILS % 85.2 % (36.0-66.0); PLATELET COUNT, AUTOMATED 527 k/mm3 (150-450); RED CELL DISTRIBUTION WIDTH 15.5 % (11.5-14.5); WHITE BLOOD COUNT 10.2 K/mm3 (4.0-10.0)
[2016-11-09 20:37] LABS: VENOUS BASE EXCESS 1.3 (-2.0-2.0); VENOUS O2 SATURATION 93.5 % (60.0-80.0); VENOUS PARTIAL PRESSURE CO2 38.4 mmHg (38.0-50.0); VENOUS PARTIAL PRESSURE O2 66.1 mmHg (30.0-50.0); VENOUS STANDARD HCO3 25.6 MEQ/L; VENOUS TOTAL CO2 26.6 MEQ/L (24.0-28.0)
[2016-11-09 20:45] LABS: INR 1.05
[2016-11-09 20:59] LABS: ANION GAP 7 MEQ/L (8-16); BLOOD UREA NITROGEN 14 MG/DL (7-18); CALCIUM LEVEL 8.5 MG/DL (8.5-10.1); CARBON DIOXIDE LEVEL 25 MEQ/L (21-32); CHLORIDE LEVEL 108 MEQ/L (98-107); GLOMERULAR FILTRATION RATE > 60.0 (>51); GLUCOSE, FASTING 99 MG/DL (70-105); SODIUM LEVEL 140 MEQ/L (136-145)
[2016-11-09] MEDS ORDERED: VANCOMYCIN HCL 1,000 MG, VIAL MATE ADAPTER 1 EACH in D5W 250 ML IV ONE (21:00)
[2016-11-09] MEDS ORDERED: IMIPENEM/CILASTATIN 500 MG in D5W MINI-BAG PLUS 100 ML IV ONE (21:00)
[2016-11-09] MEDS: METAXALONE 800 MG TABLET PO SCH (21:00)
--- NOTE | 2016-11-09 21:03 | ECGEPIP ---
Stationary ECG Study [facility] - ED Test Date: 2016-11-09 Pat Name: CHICO NICHOLS Department: Room: - Gender: F [employer] Work[employer]: taty : 1955 Requested By: MICH DE LA ROSA Order Number: [id number] Reading MD: Isabel Daniels Measurements Intervals [place] Rate: 120 P: 42 PA: 119 QRS: 53 QRSD: 84 T: 54 QT: 328 QTc: 464 Interpretive Statements SINUS TACHYCARDIA WITH SHORT PA INTERVAL ABNORMAL RHYTHM ECG INCREASED RATE 07/26/16 Electronically Signed On 11-09-2016 21:03:00 EDT by Isabel Daniels
[2016-11-09] MEDS ORDERED: LEVALBUTEROL HFA 45MCG/ACT 15 GM INHALER INH PRN (23:00)
[2016-11-09] MEDS ORDERED: ASPI81TAEC PO (23:29)
[2016-11-09] MEDS ORDERED: FLUO60TA PO (23:29)
[2016-11-09] MEDS ORDERED: VITA-193 PO (23:29)
[2016-11-09] MEDS ORDERED: LORA1TAB12 PO (23:29)
[2016-11-09] MEDS ORDERED: OXYC-517 PO (23:30)
[2016-11-09] MEDS ORDERED: PRED5TA PO (23:30)
[2016-11-09] MEDS ORDERED: ISOVUE-370 76% 100ML VIAL (Q9967) As Ordered ONE (23:50)
[2016-11-10 00:20] LABS: FERRITIN 104 NG/ML (8-252)
[2016-11-10 00:21] LABS: MAGNESIUM LEVEL 1.8 MG/DL (1.8-2.4); PERCENT SATURATION 5.1 % (13.2-45.0); TOTAL IRON BINDING CAPACITY 216 UG/DL (250-450)
--- NOTE | 2016-11-10 00:50 | REPUSA ---
CLINICAL HISTORY: Dyspnea, elevated d-dimers, exclude PE. TECHNIQUE: Multiple incremental axial, coronal and oblique images are obtained from the thoracic inle t to the upper abdomen. Intravenous contrast material was administered as per pulmonary embolism prot ocol. COMMENTS: Changes from prior right lobectomy. Traction bronchiectatic changes in the right lung apex. Moderate paraseptal emphysema. Bilateral diffuse groundglass densities of the lungs. Multiloculated small left pleural effusion. Small left free-flowing right pleural effusion. There is excellent opacification of pulmonary arterial system without evidence for pulmonary embolism . Aorta is of normal caliber without evidence for dissection or aneurysm. There is no evidence of pleural or parenchymal mass. There is no evidence of hilar or mediastinal lym phadenopathy. The heart and great vessels are within normal limits. Images of the upper abdomen demonstrate no evidence of adrenal mass. The bony structures are free of lytic or blastic lesions. Multilevel degenerative changes are seen in volving the visualized thoracolumbar spine. Scattered calcifications are seen involving the aorta and major branches compatible with atherosclero sis. IMPRESSION: No evidence for pulmonary embolism. Pleural effusions. Right lobectomy. Traction bronchiectasis in the right upper lobe with associated consolidation. Bilateral atelectatic airspace disease of the lower lobes. Multifocal ground glass densities of the lungs. Possibly multifocal pneumonia. Clinical evaluation an d followup are suggested to exclude an associated/underlying neoplastic pathology. Thank you for your kind referral of this patient.
[2016-11-10 01:16] LABS: ALBUMIN 2.7 GM/DL (3.2-5.2); ALBUMIN/GLOBULIN RATIO 0.75 (1.00-1.93); ALT/SGPT 10 U/L (12-78); AST/SGOT 6 U/L (15-37); BILIRUBIN,DIRECT 0.1 MG/DL (0.0-0.2); BILIRUBIN,TOTAL 0.3 MG/DL (0.2-1.0); TOTAL PROTEIN 6.3 GM/DL (6.4-8.2)
[2016-11-10 01:22] LABS: ALKALINE PHOSPHATASE 94 U/L (45-117)
[2016-11-10] MEDS: methylPREDNISolone INJ 125 MG/2 ML VIAL (J2930) IV SCH ×3 (01:30→16:45)
[2016-11-10 02:00] VITALS: BP 114/53
[2016-11-10] MEDS: LEVALBUTEROL 1.25 MG/0.5 ML CONCENTRATE NEB NEB SCH ×4 (02:00→20:00)
[2016-11-10] MEDS: VANCOMYCIN HCL 1,000 MG, VIAL MATE ADAPTER 1 EACH in D5W 250 ML IV SCH ×2 (02:03→13:07)
[2016-11-10] MEDS: LORazepam 1 MG TAB PO SCH ×2 (02:07→21:08)
[2016-11-10] MEDS: PRAVASTATIN 20 MG TAB PO SCH ×2 (02:08→21:08)
--- NOTE | 2016-11-10 04:26 | PHACANCOPD ---
PHARMACY VANCOMYCIN DOSING Pt Demographics Demographics Patient Age:61 , Weight:59.600 , Gender: female Adjusted Body Weight Date: 11/10/16, Adjusted Body Weight: [78.06] Kg Vancomycin Vancomycin indication: HCAP Vancomycin Target Ranges: 10-20 mcg/ml Vancomycin Load Y/N: Yes Load Dose Date Time Vancomycin Load Dose: 2GM Date: 11/09 Time: 2200 Vancomycin Dose Date: 11/10/16. Current Vancomycin Dose: [1G IV Q12H] Intermittent Dosing?: No Labs Labs Laboratory Tests 11/09/16 20:21 Red Blood Count 3.17 L, Mean Corpuscular Volume 91.3, Mean Corpuscular Hemoglobin 29.5, Mean Corpuscular Hemoglobin Concent 32.3, Red Cell Distribution Width 15.5 H, Neutrophils (%) (Auto) 85.2 H, Lymphocytes (%) (Auto ) 2.8 L, Monocytes (%) (Auto) 1.6, Eosinophils (%) (Auto) 9.4 H, Basophils (%) ( Auto) 0.3, Neutrophils # (Auto) 8.7 H, Lymphocytes # (Auto) 0.3 L, Monocytes # ( Auto) 0.2, Eosinophils # (Auto) 1.0 H, Basophils # (Auto) 0.0, Calcium Level 8.5 , Total Creatine Kinase 36 Micro Microbiology 11/09/16 Blood Culture, Received Pending 11/10/16 Influenza Virus Type A Antigen - Final, Complete 11/10/16 Influenza Virus Type B Antigen - Final, Complete 11/10/16 MRSA Screen, Received Pending 11/09/16 Urine Culture, Received Pending Creatinine Clearance Date:11/10/16. Creatinine Clearance: [93].CALCULATED Pending Labs VANCOMYCIN TROUGH DUE 11/11@1200 Assessment and Plan Maintaining Current Dose?: Yes Reason for dose change: No Dose Change Pharmacist Note Pharmacist Note Date: 11/10/16. Pharmacist note:61yof,SCR=0.8,120KG,62",CALCULATED CRCL=93, ALLERGY:SULFA, TREATINE HCAP W/ PIP/TAZO 3.375 Q6H AND VANCOMYCIN PER PHARMACY CONSULT.VANCO 1 GM IN ED@2230,THEN 1 GM ADDITIONAL ON FLOOR TO COMPLETE 2 GRAM LOAD,REGIMEN OF 1 GM IV Q12H CONTUING.FIRST TROUGH ENTERED FOR 11/11@1200: WILL CONTINUE TO FOLLOW [facility] Nov 10, 2016 04:26
--- NOTE | 2016-11-10 04:40 | HPE ---
DATE OF ADMISSION: 11/09/2016 TIME: Patient was seen at 0030 PRIMARY CARE PROVIDER: Dr. Hernandez. BOTTOM CAGER/ONCOLOGIST: Dr. Ibanez at [place]. The patient is establishing with Dr. Hathaway, has appointment for this morning. CHIEF COMPLAINT: Increased shortness of breath and left-sided chest pain. HISTORY OF PRESENT ILLNESS: Patient is a 61-year-old female with a past medical history of small-cell lung cancer status post right lobectomy in 2001 with recent recurrence and metastasized to adrenal gland and bones, diagnosed this July, myocardial infarction (IN) status post percutaneous coronary intervention (PCI) and stent times one back in September 2015, rheumatoid arthritis, anxiety, depression , chronic anemia, presented today with fever of 101 and increased shortness of breath, also left-sided chest pain. Per patient, the left-sided chest pain started 2 weeks ago and it is mostly burning sensation; however, the fever just started this afternoon around 6 p.m. She measured at home temperature was 101.3 and she also started feeling chills about 2 p.m. In addition, she just went to [place] earlier today for infusion of chemotherapy Keytruda at around 10 a.m. Then she drove 3 hours back to [place]. Patient also recently resigned from her job just yesterday due to worsening cancer. She denies the pain was exertional and does not increase with movement or breathing. Patient stated that her discomfort currently is at least 8/10. Denies any coughing or sputum production. Denies any abdominal pains, any nausea, vomiting, diarrhea, constipation, blood in the stool. Denies any blood in the urine, dysuria, urinary urgency. Denies any swelling in extremities. Patient denies use of oxygen at home and was fully independent until this afternoon. ALLERGIES: Patient is allergic to SULFA drugs, which gives her gastrointestinal (GI) upset. HOME MEDICATIONS: - Ventolin two puff inhalation four times a day as needed - albuterol sulfate 2.5 mcg inhalation four times a day as needed - ascorbic acid 500 mg one tablet by mouth daily - aspirin 81 mg by mouth daily - biotin 10 mg by mouth daily - Symbicort 16/4.5 mcg two puff inhalation twice a day - bupropion 300 mg one tablet by mouth daily - calcium 600 mg by mouth daily - vitamin D3 2000 units by mouth daily - vitamin B12 500 mcg by mouth daily - fluoxetine 60 mg by mouth daily - folic acid 1 mg by mouth once weekly - lorazepam 1 mg by mouth nightly - metaxalone 800 mg one tablet by mouth nightly - methotrexate 15 mg by mouth weekly - omeprazole 20 mg by mouth daily - oxycodone 5 mg by mouth four times a day as needed - Effient 5 mg by mouth daily - pravastatin 40 mg by mouth at bedtime - prednisone 10 mg by mouth daily as needed - Treximet 10/60 mg one tablet by mouth as directed PAST MEDICAL HISTORY: 1. Small-cell cancer of the lung status post right lobectomy and chemotherapy, radiation therapy in 2001 with recurrence in July 2016 with metastases to adrenal gland and bones. 2. ST-segment elevation myocardial infarction (STEMI) status post PCI and stent in September 2015. 3. Rheumatoid arthritis. 4. Asthmatic bronchitis. 5. Anxiety. 6. Depression. 7. Chronic anemia. 8. Chronic pain. 9. Vitamin deficiency. 10. Gastroesophageal reflux disease (GERD). 11. Hyperlipidemia. PAST SURGICAL HISTORY: 1. Tubal ligation. 2. Right lobectomy. 3. Colonoscopy several years ago. SOCIAL HISTORY: Patient used to smoke, quit 13 years ago, used to smoke half pack per day for 20 years. Denies any drinking or recreational drug use. FAMILY HISTORY: Patient's mother had inflammatory breast cancer and father had hypertension. REVIEW OF SYSTEMS: GENERAL: Patient admits to recent traveling to [place] driving 3 hours to [place] then 3 hours back for chemotherapy Keytruda. Denies any sick contact. Admits to recent hospitalization back in July. Admits to fever and chills. Denies any recent weight changes. HEENT: Denies any changes with vision, smell, hearing or taste. Denies any trouble swallowing or cough. CARDIOVASCULAR: Admits to left-sided chest pain. Denies exertional chest pain. Admits to trouble breathing. Denies any palpitations. PULMONARY: Admits to recently diagnosed asthmatic bronchitis. Admits to shortness of breath that is worse than usual. Patient does not use oxygen at home. GASTROINTESTINAL (GI): Denies any abdominal pains, nausea, vomiting, diarrhea, constipation, any blood in the stool. Had a normal colonoscopy a few years back. GENITOURINARY (): Denies any dysuria, burning on urination, urinary urgency, blood in the urine. MUSCULOSKELETAL: Admits to rheumatoid arthritis, which was painful, especially in the hands and also in her other joints. Admits to left-sided chest pain that was burning in sensation per patient has been going on for 2 weeks. HEMATOLOGY/ONCOLOGY: Patient has stage IV lung cancer with metastases to adrenal gland and bones. Patient had a lobectomy of right lung back in 2001. DERMATOLOGICAL: Denies any rash on the skin. NEUROLOGICAL: Denies any weakness on any one side of her body, any change of sensations. PSYCHIATRIC: Admits to anxiety and depression. PHYSICAL EXAMINATION: VITAL SIGNS: Temperature 101, pulse 121, respirations 24, blood pressure 126/58 , oxygen was saturating at 89% on room air initially, and saturation improved to 97% on 3 liters of nasal cannula. GENERAL: Patient is a pleasant elderly female who was alert, awake, and oriented times three. Does not appear to be in distress lying comfortably in bed with head elevated at 30 degrees. HEENT: Normocephalic, atraumatic. Extraocular motor intact. Mucosa moist. NECK: Supple, no neck lymphadenopathy. CARDIOVASCULAR: Tachycardic, normal S1, S2, no murmurs. LUNGS: There were diffuse inspiratory rales and also expiratory wheezing bilaterally. ABDOMEN: Positive bowel sounds, soft, nontender. No peritoneal signs. No ecchymosis. EXTREMITIES: No edema, clubbing, or cyanosis. SKIN: Warm and dry. NEUROLOGIC: Cranial nerves II-XII intact. No focal neurological deficit. LABORATORY DATA: WBC 10.2, hemoglobin 9.3, hematocrit 28.9 with platelet count of 527, and MCV of 91.3. Neutrophil percentage was 85%, lymphocytes 2.8, eosinophils 9.4, neutrophils 8.7, lymphocytes 0.3, monocytes 0.2, eosinophil 1. Sodium 140, potassium 4, chloride 108, bicarbonate 25, anion gap 7, BUN 14, creatinine 0.8, GFR greater than 60, fasting glucose 99, lactic acid 1, calcium 8.5, magnesium 1.8, iron 11, TIBC 216, transferrin percentage saturation was 5.1 , ferritin 104, total bilirubin 0.3, direct bilirubin 0.1, AST 6, ALT 10, alkaline phosphatase is pending, total creatinine 36, CK-MB 1, troponin less than 0.02, BNP is pending, total protein 6.3, albumin 2.7. B12 and folate are pending. Patient had a venous blood gas in the emergency room shows pH 7.43, pCO2 38.4, pO2 66.1, oxygen was 93%. Coagulation panel shows PT 13.8, INR 1.05, PTT 36.6. Patient had a urinalysis that shows 1+ blood, 2 urobilinogen, 43 RBCs. Fluid culture is pending. Urine Legionella, Streptococcus pneumoniae are pending. Influenza was negative. Methicillin-resistant Staphylococcus aureus (MRSA) screening is pending. Blood culture, urine cultures are pending. Patient had a portable chest x-ray done in the emergency room. Official result is pending. Patient did have CT angiography of the chest that shows no evidence of PE, pleural effusion and right lobectomy, traction bronchiectasis in the right upper lobe with associated consolidation, bilateral atelectatic airspace disease of the lower lobes. Multifocal ground-glass density of the lung, possibly multifocal pneumonia. ASSESSMENT AND PLAN: 61-year-old female with a past medical history of stage IV lung cancer metastasized to adrenal gland and bones, history of myocardial infarction (IN) status post percutaneous coronary intervention (PCI) and stent, rheumatoid arthritis, anxiety, depression, asthmatic bronchitis, chronic anemia, chronic pain, vitamin deficiency, presented with: 1. Fever with increased shortness of breath and possible multifocal pneumonia with possible sepsis due to tachycardia, tachypnea and fever. Vancomycin and Zosyn were started in the emergency room. Will continue. In addition, patient does have wheezing and rales bilaterally. Possible exacerbation of asthmatic bronchitis versus reaction from chemotherapy this morning. Therefore, will start Solu-Medrol 60 mg intravenous (IV) every 8 hours and will continue to monitor. Patient currently is on oxygen 3 liters nasal cannula; however, she does not use any oxygen at home. At this point, will titrate her oxygen between 88 and 92% and continue to monitor patient. 2. Left-sided chest pain. Rule out acute coronary syndrome (ACS). Cardiac marker has been negative so far and patient's history does not appear to be cardiac due to no chest pain on exertion and shortness of breath does not increase with exertion. The pain was not positional, was constant and has been there for 2 weeks, initially felt due to cancer. Therefore, will not continue to trend the cardiac marker. However, will restart patient's home medications for aspirin and prasugrel, as well as statin and continue to monitor patient. If patient continues to be tachycardic, possibly will consider adding a beta graciela. 3. Chronic anemia. Hemoglobin 9.3. Iron panel has been done. Does show a mixed picture with possible mixed iron deficiency anemia with anemia of chronic disease. B12 and folate is currently pending. Will followup. 4. History of IN with stents. Continue aspirin, prasugrel, statin, and continue to monitor patient. 5. History of rheumatoid arthritis. Continue methotrexate and the patient is on IV steroid for asthmatic bronchitis exacerbation. 6. Anxiety/depression. Continue home medications. 7. Deep venous thrombosis (DVT) prophylaxis. On heparin 5000 units subcutaneously every 8 hours. 8. Fluid, electrolytes and diet. Patient is on a diet with no added salt. DISPOSITION: Patient has a fever and chills with increased shortness of breath possibly secondary to hospital-acquired pneumonia versus exacerbation of her asthma versus a reaction from Keytruda. PE has been ruled out with a CT angiogram of the chest. Will continue to followup with cultures and deescalate as needed. In addition, Dr. Hathaway from hematology/oncology has been consulted. We appreciate her help. Will contact her in the morning. Otherwise, morning attending for the patient is Dr. Cornejo. My preceptor for this patient encounter was Dr. Janet Garcia. The preceptor was physically present in the building during the encounter and was fully available as needed. All aspects of the patient interview, examination, medical decision making process, and medical care plan development were reviewed and approved by the preceptor. The preceptor is aware and concurs with the plan as stated in the body of this note and will attest to such by his/her co-signature. SAMUEL
[2016-11-10] MEDS: HEPARIN SOD (PORCINE) 5000 UNITS/ML VIAL SC SCH ×3 (05:53→21:09)
[2016-11-10 06:00] VITALS: BP 104/55
[2016-11-10 06:48] LABS: ALBUMIN 2.6 GM/DL (3.2-5.2); ALKALINE PHOSPHATASE 94 U/L (45-117); ALT/SGPT 9 U/L (12-78); ANION GAP 10 MEQ/L (8-16); AST/SGOT 8 U/L (15-37); BILIRUBIN,DIRECT 0.2 MG/DL (0.0-0.2); BILIRUBIN,TOTAL 0.5 MG/DL (0.2-1.0); BLOOD UREA NITROGEN 12 MG/DL (7-18); CALCIUM LEVEL 8.6 MG/DL (8.5-10.1); CARBON DIOXIDE LEVEL 24 MEQ/L (21-32); CHLORIDE LEVEL 111 MEQ/L (98-107); CREATININE FOR GFR 0.61 MG/DL (0.55-1.02); GLOMERULAR FILTRATION RATE > 60.0 (>51); GLUCOSE, FASTING 128 MG/DL (70-105); POTASSIUM SERUM 4.2 MEQ/L (3.5-5.1); SODIUM LEVEL 145 MEQ/L (136-145); TOTAL PROTEIN 6.3 GM/DL (6.4-8.2)
[2016-11-10 06:50] LABS: BASO % 0.1 % (0.0-1.0); EOS # 0.1 K/mm3 (0.0-0.50); EOS % 0.7 % (0.0-3.0); LARGE UNSTAINED CELL % 0.3 % (0.0-4.0); LYMPH # 0.2 K/mm3 (1.5-4.5); LYMPH % 1.3 % (24.0-44.0); MEAN CORPUSCULAR HEMOGLOBIN 29.2 pg (27.0-33.0); MEAN CORPUSCULAR HGB CONC 31.6 g/dl (32.0-36.5); MEAN CORPUSCULAR VOLUME 92.5 fl (80.0-96.0); MONO # 0.1 K/mm3 (0.0-0.8); MONO % 1.2 % (0.0-5.0); NEUTROPHILS # 11.4 K/mm3 (1.8-7.7); NEUTROPHILS % 96.5 % (36.0-66.0); PLATELET COUNT, AUTOMATED 536 k/mm3 (150-450); RED CELL DISTRIBUTION WIDTH 15.6 % (11.5-14.5); WHITE BLOOD COUNT 11.8 K/mm3 (4.0-10.0)
--- NOTE | 2016-11-10 07:30 | REP ---
PA and lateral chest: Comparison is 06/27/2016. There are surgical clips in the right hilus, elevation of the right hemidiaphragm and volume loss in the right hemithorax compatible with upper lobectomy. Additionally there is a surgical staple line in the apex of the right lung. All of these findings are stable and unchanged. The costophrenic angles are effaced suggestive of bilateral pleural effusions. Cardiac size is normal. The visualized lung bone otherwise clear. Signed by Jaya Booker MD 11/10/2016 07:22 A
[2016-11-10] MEDS ORDERED: PRASUGREL 10 MG TAB (EFFIENT) PO SCH (09:00)
[2016-11-10] MEDS ORDERED: METHOTREXATE 2.5 MG TAB (J8610 PER 2.5MG) PO SCH (09:00)
[2016-11-10] MEDS ORDERED: BIOTIN 5 MG PO SCH (09:00)
[2016-11-10] MEDS: SYMBICORT 160/4.5MCG INHALER 6GM INH SCH ×2 (09:14→21:00)
[2016-11-10] MEDS: FLUoxetine 20 MG CAP PO SCH (09:30)
[2016-11-10] MEDS: buPROPion **XL** TABLET 150MG (WELLBUTRIN XL) PO SCH (09:30)
[2016-11-10] MEDS: CALCIUM CARBONATE 500 MG CHEW U/D PO SCH (09:30)
[2016-11-10] MEDS: VITAMIN D 1,000 INTERNATIONAL UNITS TABLET PO SCH (09:30)
[2016-11-10] MEDS: LACTOBACILLUS ACIDOPHILUS CAP (BACID) PO SCH ×2 (09:30→16:45)
[2016-11-10] MEDS: ASCORBIC ACID 500 MG TAB PO SCH (09:30)
[2016-11-10] MEDS: PIPERACILLIN/TAZOBACTAM SOD 3.375 GM in D5W MINI-BAG PLUS 50 ML IV SCH ×3 (09:30→21:08)
[2016-11-10] MEDS: OMEPRAZOLE 20 MG CAP PO SCH (09:31)
[2016-11-10] MEDS: CYANOCOBALAMIN 500 MCG TAB PO SCH (09:31)
[2016-11-10] MEDS: FOLIC ACID 1 MG TAB PO SCH (09:31)
[2016-11-10 10:02] LABS: FOLATE 8.9 NG/ML (>5.4); VITAMIN B12 LEVEL 1459 PG/ML (247-911)
[2016-11-10] MEDS: ACETAMINOPHEN TAB 650MG DOSE (2X325MG) PO PRN ×2 (11:42→16:48)
[2016-11-10] MEDS: oxyCODONE 5MG TAB PO PRN ×2 (11:43→16:50)
[2016-11-10 14:00] VITALS: BP 124/59
[2016-11-10] MEDS: METAXALONE 800 MG TABLET PO SCH (21:08)
[2016-11-10 22:00] VITALS: BP 124/60
[2016-11-11] MEDS: VANCOMYCIN HCL 1,000 MG, VIAL MATE ADAPTER 1 EACH in D5W 250 ML IV SCH ×2 (01:10→13:27)
[2016-11-11] MEDS: methylPREDNISolone INJ 125 MG/2 ML VIAL (J2930) IV SCH ×2 (01:10→20:39)
[2016-11-11] MEDS: LEVALBUTEROL 1.25 MG/0.5 ML CONCENTRATE NEB NEB SCH ×4 (01:29→20:00)
[2016-11-11] MEDS: PIPERACILLIN/TAZOBACTAM SOD 3.375 GM in D5W MINI-BAG PLUS 50 ML IV SCH ×2 (02:39→09:19)
[2016-11-11] MEDS: ONDANSETRON 4MG/2ML VIAL (J2405) IV PRN ×3 (02:56→20:40)
[2016-11-11] MEDS: oxyCODONE 5MG TAB PO PRN (02:56)
[2016-11-11 06:00] VITALS: BP 107/57
[2016-11-11] MEDS: HEPARIN SOD (PORCINE) 5000 UNITS/ML VIAL SC SCH ×3 (06:05→22:07)
[2016-11-11 06:08] LABS: EOS % 0.1 % (0.0-3.0); LARGE UNSTAINED CELL % 0.1 % (0.0-4.0); LYMPH # 0.2 K/mm3 (1.5-4.5); LYMPH % 1.1 % (24.0-44.0); MEAN CORPUSCULAR HEMOGLOBIN 29.7 pg (27.0-33.0); MEAN CORPUSCULAR HGB CONC 31.7 g/dl (32.0-36.5); MEAN CORPUSCULAR VOLUME 93.6 fl (80.0-96.0); MONO # 0.2 K/mm3 (0.0-0.8); MONO % 1.3 % (0.0-5.0); NEUTROPHILS # 15.9 K/mm3 (1.8-7.7); NEUTROPHILS % 97.3 % (36.0-66.0); PLATELET COUNT, AUTOMATED 545 k/mm3 (150-450); RED CELL DISTRIBUTION WIDTH 15.6 % (11.5-14.5); WHITE BLOOD COUNT 16.3 K/mm3 (4.0-10.0)
[2016-11-11 06:10] LABS: ALBUMIN 2.2 GM/DL (3.2-5.2); ALBUMIN/GLOBULIN RATIO 0.52 (1.00-1.93); ALKALINE PHOSPHATASE 81 U/L (45-117); ALT/SGPT 7 U/L (12-78); ANION GAP 9 MEQ/L (8-16); AST/SGOT 6 U/L (15-37); BILIRUBIN,DIRECT < 0.1 MG/DL (0.0-0.2); BILIRUBIN,TOTAL 0.3 MG/DL (0.2-1.0); BLOOD UREA NITROGEN 15 MG/DL (7-18); CALCIUM LEVEL 9.2 MG/DL (8.5-10.1); CARBON DIOXIDE LEVEL 25 MEQ/L (21-32); CHLORIDE LEVEL 109 MEQ/L (98-107); CREATININE FOR GFR 0.69 MG/DL (0.55-1.02); GLOMERULAR FILTRATION RATE > 60.0 (>51); GLUCOSE, FASTING 141 MG/DL (70-105); POTASSIUM SERUM 3.7 MEQ/L (3.5-5.1); SODIUM LEVEL 143 MEQ/L (136-145); TOTAL PROTEIN 6.4 GM/DL (6.4-8.2)
[2016-11-11] MEDS: SYMBICORT 160/4.5MCG INHALER 6GM INH SCH ×2 (07:56→19:35)
[2016-11-11] MEDS ORDERED: MORPHINE 2 MG/ML 1ML SYRINGE IV PRN (08:45)
[2016-11-11] MEDS: ASCORBIC ACID 500 MG TAB PO SCH (09:18)
[2016-11-11] MEDS: OMEPRAZOLE 20 MG CAP PO SCH (09:19)
[2016-11-11] MEDS: LACTOBACILLUS ACIDOPHILUS CAP (BACID) PO SCH ×2 (09:19→20:38)
[2016-11-11] MEDS: CYANOCOBALAMIN 500 MCG TAB PO SCH (09:19)
[2016-11-11] MEDS: VITAMIN D 1,000 INTERNATIONAL UNITS TABLET PO SCH (09:19)
[2016-11-11] MEDS: FLUoxetine 20 MG CAP PO SCH (09:19)
[2016-11-11] MEDS: CALCIUM CARBONATE 500 MG CHEW U/D PO SCH (09:19)
--- NOTE | 2016-11-11 09:22 | IPNPDOC ---
Subjective Date Seen The patient was seen on 11/11/16. Subjective Chief Complaint/HPI The patient is a 61-year-old female admitted with a reason for visit of Hospital Acquired Bacterial Pneumonia. General: Denies: ROS Unobtainable, Chills, Night Sweats, Fatigue, Malaise, Normal Appetite, Other Symptoms Constitutional: Denies: Chills, Fever, Malaise, Night Sweats, Weakness, Fatigue , Weight Loss, Lethargy, Other Eyes: Denies: Pain, Vision change, Conjunctivae inflammation, Eyelid inflammation, Redness, Other ENT: Denies: Head Aches, Ear Pain, Dysphagia, Sinus Congestion, Post Nasal Drip , Sore Throat, Epistaxis, Other Symptoms Skin: Denies: Rash, Lesions, Jaundice, Bruising, Itching, Dry, Breakdown, Nail Changes, Other Pulmonary: Reports: Cough, Denies: Dyspnea, Pleuritic Chest Pain, Other Symptoms Cardiovascular: Denies: Chest Pain, Palpitations, Orthopnea, Paroxysmal Noc. Dyspnea, Edema, Lt Headedness, Other Symptoms Gastrointestinal: Denies: Nausea, Vomiting, Abdominal Pain, Diarrhea, Constipation, Melena, Hematochezia, Other Symptoms Genitourinary: Denies: Dysuria, Frequency, Incontinence, Hematuria, Retention, Other Symptoms Objective Physical Examination General Exam: Positive: Alert, Cooperative, No Acute Distress Eye Exam: Positive: Conjunctiva & lids normal, EOMI, Negative: Sclera icteric ENT Exam: Positive: Atraumatic Chest Exam: Positive: Diminished Heart Exam: Positive: Rate Normal Abdomen Exam: Positive: Normal bowel sounds, Soft, Negative: Tenderness Extremity Exam: Negative: Edema Psych Exam: Positive: Oriented x 3 Assessment /Plan Problems (1) Pneumonia Status: Acute Response to Treatment: Improving Discussed With: Patient Problem Specific Plan: Monitor Clinically Problem Text: acute hypoxic respiratory failure - multifactorial - wean O2 CT angio negative for PE Continue with IV antibiotics. Sputum culture/gram stain pending. Respiratory panel negative. MRSA screen pending - will D/C vanco if negative. Likely complicated with pneumonitis - continue IV steroids - taper. 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 S/p Autumntrshanika 11/09/16, next session 3 weeks. (3) Rheumatoid arthritis Status: Chronic Problem Text: MTX on hold for concern of exacerbating pneumonitis. (4) STEMI (ST elevation myocardial infarction) Status: Chronic Problem Text: s/p PCI (5) Hyperlipidemia Status: Chronic Problem Text: continue pravastatin (6) Anxiety Status: Chronic Discussed With: Patient Problem Text: Continue lorazepam, (7) Depression Status: Chronic Discussed With: Patient Problem Text: buproprion, prozac (8) Anemia Status: Chronic Response to Treatment: Stable Problem Specific Plan: Repeat Labs Plan/VTE VTE Prophylaxis Ordered?: Yes Plan Diet: Continue Current Activity: Continue Current Medications: Taper Steroids Respiratory: Wean Oxygen Diagnostics: Repeat Labs in AM, Obtain Cultures Anticipated Discharge: Home Continue with IV antibiotics. Cultures/MRSA screen pending to de-escalate antibiotics. Wean O2. VS, I&O, 24H, Fishbone Vital Signs/I&O Vital Signs Date Time Temp Pulse Resp B/P (MAP) Pulse Ox O2 Delivery O2 Flow Rate FiO2 11/11/16 06:00 97.1 99 20 107/57 (74) 90 Nasal Cannula 2.0 I&O- Last 24 Hours up to 6 AM 11/11/16 06:00 Intake Total 410 ml Output Total 1050 ml Balance -640 ml Laboratory Data 24H LABS Laboratory Tests 2 11/10/16 11:52: Total Creatine Kinase 25L, Creatine Kinase MB 1.0, Creatine Kinase MB Relative Index 4.00, Troponin I < 0.02 11/11/16 05:07: White Blood Count 16.3H, Red Blood Count 3.12L, Hemoglobin 9.2L, Hematocrit 29.2L, Mean Corpuscular Volume 93.6, Mean Corpuscular Hemoglobin 29.7, Mean Corpuscular Hemoglobin Concent 31.7L, Red Cell Distribution Width 15.6H, Platelet Count 545H, Neutrophils (%) (Auto) 97.3H, Lymphocytes (%) (Auto) 1.1L, Monocytes (%) (Auto) 1.3, Eosinophils (%) (Auto) 0.1, Basophils (%) (Auto) 0.0, Neutrophils # (Auto) 15.9H, Lymphocytes # (Auto) 0.2L, Monocytes # (Auto) 0.2, Eosinophils # (Auto) 0.0, Basophils # (Auto) 0.0, Large Unclassified Cells % 0.1 , Large Unclassified Cells # 0.0, Anion Gap 9, Glomerular Filtration Rate > 60.0 , Calcium Level 9.2, Aspartate Amino Transf (AST/SGOT) 6L, Alanine Aminotransferase (ALT/SGPT) 7L, Alkaline Phosphatase 81, Total Bilirubin 0.3, Direct Bilirubin < 0.1, Total Protein 6.4, Albumin 2.2L, Albumin/Globulin Ratio 0.52L CBC/BMP Laboratory Tests 11/11/16 05:07 Red Blood Count 3.12 L, Mean Corpuscular Volume 93.6, Mean Corpuscular Hemoglobin 29.7, Mean Corpuscular Hemoglobin Concent 31.7 L, Red Cell Distribution Width 15.6 H, Neutrophils (%) (Auto) 97.3 H, Lymphocytes (%) (Auto ) 1.1 L, Monocytes (%) (Auto) 1.3, Eosinophils (%) (Auto) 0.1, Basophils (%) ( Auto) 0.0, Neutrophils # (Auto) 15.9 H, Lymphocytes # (Auto) 0.2 L, Monocytes # (Auto) 0.2, Eosinophils # (Auto) 0.0, Basophils # (Auto) 0.0 Microbiology Microbiology 11/10/16 Blood Culture - Preliminary, Resulted No growth after 24 hours . All specim... 11/09/16 Blood Culture - Preliminary, Resulted No growth after 24 hours . All specim... 11/10/16 Respiratory Virus Panel (PCR) ([facility]) - Final, Complete 11/10/16 Influenza Virus Type A Antigen - Final, Complete 11/10/16 Influenza Virus Type B Antigen - Final, Complete 11/10/16 MRSA Screen - Final, Complete 11/09/16 Urine Culture - Final, Complete JORDAN ORTEGA MD Nov 11, 2016 09:22
[2016-11-11] MEDS: buPROPion **XL** TABLET 150MG (WELLBUTRIN XL) PO SCH (09:33)
[2016-11-11] MEDS: LORazepam 0.5 MG TAB PO PRN (10:34)
[2016-11-11] MEDS ORDERED: methylPREDNISolone INJ 125 MG/2 ML VIAL (J2930) IV SCH (13:00)
[2016-11-11] MEDS ORDERED: ONDANSETRON 4MG/2ML VIAL (J2405) IV ONE (13:45)
[2016-11-11 14:00] VITALS: BP 118/56
--- NOTE | 2016-11-11 14:27 | CR ---
MEDICAL ONCOLOGY INPATIENT CONSULT DATE OF SERVICE: 11/10/2016 Dr. Isaiah Cornejo of hospitalist service requested medical oncology consult for management recommendations. Urvashi is a 61-year-old woman with a personal history of early stage non-small cell lung carcinoma diagnosed in 2001, status post right lobectomy performed in [place] and followed since. She had, in fact, been discharged from oncology and even pulmonology followup about a year ago, but in July developed some unintended weight loss and was hospitalized for pneumonia and found to have new lung lesions, adrenal lesions, bone lesions. She has been undergoing an extensive workup including adrenal biopsy, lung biopsies. The adrenal biopsy confirmed metastatic non-small cell lung carcinoma, the lung biopsies apparently nondiagnostic. Her markers indicated PD-L1 high, by her report, and she was started on first-line treatment with checkpoint inhibitor pembrolizumab on the morning of November 09. Later in the day, she developed some difficulty breathing , chest discomfort, coughing, and ultimately was admitted to the hospital at about 7:25 on that same day, November 09, when she presented with fever 101, tachycardia 120, adequate blood pressure, but severe hypoxemia with pulse ox 89% on room air. Chest x-ray was unrevealing, but CT angiography showed traction bronchiectasis in the right upper lobe with associated consolidation, bilateral atelectatic airspace disease in the lower lobes, multifocal ground-glass densities in the lung possibly from multifocal pneumonia. There was no evidence of pulmonary embolism. She was started on vancomycin and piperacillin/tazobactam and supplemental oxygen. At the bedside, she is reclining, appears mostly comfortable. She is accompanied by her . She is pleasant, talkative, speaks in full sentences. Urvashi relates a history of a 2-week prodrome of progressive shortness of breath and cough symptoms prior to starting the pembrolizumab on November 09. The timing is important as pembrolizumab is associated with immune-mediated inflammatory changes and pneumonitis not typically of immediate onset, but there is no distinguishing time interval between starting the medication and the event of pneumonitis. This occurs with the rate of about 5-10% in patient's on checkpoint inhibitors. Also of note, Urvashi is maintained on methotrexate for rheumatoid arthritis, a drug known to cause pneumonitis, a drug also known to accumulate in third space fluid potentially causing side effects such as myelosuppression. Urvashi's labs on admission are mostly unremarkable, moderate anemia consistent with methotrexate use and/or rheumatoid arthritis, mild leukocytosis, mild thrombocytosis. Blood cultures to date have been negative. She was started on Solu-Medrol for wheezes on exam. PHYSICAL EXAM: Most recent vital signs 2:00 p.m. today, temperature 97, pulse 108, blood pressure 124/59, heart rate 96, respiratory rate 18, oxygen saturation 96% on 2 liters. Patient is a slender, youthful, middle-aged woman, no distress. RESPIRATORY: Good air movement, clear lungs in the upper lung bone bilaterally, slightly decreased air movement in the lower lung bone with occasional rhonchi. No michael wheezes anteriorly or posteriorly. CARDIAC: S1, S2, mild tachycardia, regular rhythm. No gallops or murmurs. ABDOMEN: Nondistended, nontender, no hepatosplenomegaly. EXTREMITIES: No edema. LYMPH NODES: No palpable submandibular, cervical, supraclavicular, or axillary adenopathy. LABS: As noted. IMPRESSION: Metastatic non-small cell lung adenocarcinoma PD-L1 high, with all oligometastatic bone and lung and adrenal foci of recurrent disease occurring 15 years out from original right lobectomy for adenocarcinoma of the lung. Urvashi started pembrolizumab, a checkpoint inhibitor medication, the morning of her admission to the hospital for acute on subacute respiratory symptoms and fever. CT angio is negative for pulmonary embolism and notable for multifocal, ground-glass opacities, a small left pleural effusion, and a small free-flowing right pleural effusion. The overall clinical picture is consistent with a pneumonitis, though the onset is extraordinarily rapid if this is secondary to pembrolizumab. An alternate interpretation is a community-acquired pneumonia with superimposed pneumonitis either from pembrolizumab or methotrexate. In either case, because she has had frequent recent hospitalizations and instrumentation, I agree with coverage for a hospital-acquired pneumonia as well as high-dose corticosteroids. I am recommending changing her Solu-Medrol to prednisone 50 mg p.o. daily with appropriate proton pump inhibitor (PPI), gastrointestinal (GI) prophylaxis, continuing this until her oxygenation improves while continuing antibiotics. RECOMMENDATIONS: 1. Continue antibiotics. 2. Continue corticosteroids. Recommend transition to prednisone 50 mg by mouth daily from Solu-Medrol. 3. I will contact the patient's oncologist at [facility], Fatemeh Ibanez, , to relay the recent events and obtain the results of the patient's PET, which she reports was done just a few days ago at [place]. Apparently, not showing gross pulmonary parenchymal progression but, apparently, showing a few additional sites of skeletal disease. 4. I will continue to follow Urvashi intermittently during this hospitalization. She asked if I could be her local oncologist, of course, we will do so and work together with her [place] doctors. SAMUEL
[2016-11-11] MEDS ORDERED: LORazepam 2 MG/ML VIAL (J2060) IV STA ×2 (15:09→17:56)
--- NOTE | 2016-11-11 15:41 | REP ---
Portable chest, single AP view, 03:31 a.m., the patient semi upright: Comparison is a 01/19/2017. There are diffuse bilateral interstitial and alveolar infiltrates as a distinct interval change, significantly worse on the left than the right. Bilateral pleural effusions are again noted. Postsurgical changes of left upper lobe that could be are again identified, unchanged. Impression: New bilateral interstitial and alveolar infiltrates, worse on the left. Signed by Jaya Booker MD 11/11/2016 03:32 P
[2016-11-11 15:44] LABS: ABG BASE EXCESS -3.3 (-2.0-2.0); ABG DEVICE NASAL CANN; ABG HCO3 21.6 MEQ/L (22.0-26.0); ABG PARTIAL PRESSURE O2 47.1 mmHg (75.0-100.0); ABG STANDARD HCO3 21.4 MEQ/L (22.0-26.0); ABG TOTAL CO2 22.7 MEQ/L (22.0-29.0); ABG pH (ARTERIAL) 7.372 UNITS (7.350-7.450)
[2016-11-11 16:26] LABS: MEAN CORPUSCULAR HEMOGLOBIN 28.3 pg (27.0-33.0); MEAN CORPUSCULAR HGB CONC 30.1 g/dl (32.0-36.5); RED CELL DISTRIBUTION WIDTH 15.6 % (11.5-14.5)
[2016-11-11] MEDS ORDERED: methylPREDNISolone INJ 40 MG/1 ML VIAL (J2920) IV ONE (16:30)
[2016-11-11 17:42] VITALS: BP 115/55
[2016-11-11 19:36] VITALS: O2SAT 93
[2016-11-11 20:00] VITALS: BP 134/61
[2016-11-11] MEDS: PIPERACILLIN/TAZOBACTAM SOD 4.5 GM in D5W MINI-BAG PLUS 50 ML IV SCH (20:37)
[2016-11-11] MEDS: METAXALONE 800 MG TABLET PO SCH (20:38)
[2016-11-11] MEDS: PRAVASTATIN 20 MG TAB PO SCH (20:39)
[2016-11-11] MEDS: LORazepam 0.5 MG TAB PO SCH (20:39)
[2016-11-11] MEDS: MORPHINE 2 MG/ML 1ML SYRINGE IV PRN ×2 (20:41→21:33)
[2016-11-11] MEDS ORDERED: PIPERACILLIN/TAZOBACTAM SOD 4.5 GM in D5W MINI-BAG PLUS 50 ML IV SCH (21:00)
[2016-11-11] MEDS ORDERED: FUROSEMIDE 20 MG/2 ML VIAL (J1940) IV ONE (21:00)
[2016-11-12] VITALS (7 sets, daily range): BP systolic 100–119; BP diastolic 53–66; O2SAT 93
[2016-11-12] MEDS: LEVALBUTEROL 1.25 MG/0.5 ML CONCENTRATE NEB NEB SCH ×4 (01:55→20:00)
[2016-11-12] MEDS: PIPERACILLIN/TAZOBACTAM SOD 4.5 GM in D5W MINI-BAG PLUS 50 ML IV SCH ×4 (04:08→21:52)
[2016-11-12 05:09] LABS: EOS # 0.1 K/mm3 (0.0-0.50); EOS % 0.4 % (0.0-3.0); LARGE UNSTAINED CELL % 0.1 % (0.0-4.0); LYMPH # 0.2 K/mm3 (1.5-4.5); LYMPH % 1.6 % (24.0-44.0); MEAN CORPUSCULAR HEMOGLOBIN 28.7 pg (27.0-33.0); MEAN CORPUSCULAR HGB CONC 30.8 g/dl (32.0-36.5); MEAN CORPUSCULAR VOLUME 93.4 fl (80.0-96.0); MONO # 0.1 K/mm3 (0.0-0.8); MONO % 0.6 % (0.0-5.0); NEUTROPHILS # 12.3 K/mm3 (1.8-7.7); NEUTROPHILS % 97.3 % (36.0-66.0); RED CELL DISTRIBUTION WIDTH 15.7 % (11.5-14.5); WHITE BLOOD COUNT 12.7 K/mm3 (4.0-10.0)
[2016-11-12 05:29] LABS: PLATELET COUNT, AUTOMATED 551 k/mm3 (150-450)
[2016-11-12 05:47] LABS: ALBUMIN 2.3 GM/DL (3.2-5.2); ALBUMIN/GLOBULIN RATIO 0.52 (1.00-1.93); ALKALINE PHOSPHATASE 85 U/L (45-117); ALT/SGPT 11 U/L (12-78); ANION GAP 10 MEQ/L (8-16); AST/SGOT 15 U/L (15-37); BILIRUBIN,DIRECT < 0.1 MG/DL (0.0-0.2); BILIRUBIN,TOTAL 0.3 MG/DL (0.2-1.0); BLOOD UREA NITROGEN 26 MG/DL (7-18); CALCIUM LEVEL 8.9 MG/DL (8.5-10.1); CARBON DIOXIDE LEVEL 27 MEQ/L (21-32); CHLORIDE LEVEL 109 MEQ/L (98-107); CREATININE FOR GFR 0.85 MG/DL (0.55-1.02); GLOMERULAR FILTRATION RATE > 60.0 (>51); GLUCOSE, FASTING 129 MG/DL (70-105); POTASSIUM SERUM 3.9 MEQ/L (3.5-5.1); SODIUM LEVEL 146 MEQ/L (136-145); TOTAL PROTEIN 6.7 GM/DL (6.4-8.2)
[2016-11-12] MEDS: methylPREDNISolone INJ 125 MG/2 ML VIAL (J2930) IV SCH ×3 (05:49→21:53)
[2016-11-12] MEDS: HEPARIN SOD (PORCINE) 5000 UNITS/ML VIAL SC SCH ×3 (05:50→21:53)
[2016-11-12 07:01] LABS: MAGNESIUM LEVEL 2.4 MG/DL (1.8-2.4)
--- NOTE | 2016-11-12 07:29 | IPNPDOC ---
Subjective Date Seen The patient was seen on 11/12/16. Subjective Chief Complaint/HPI The patient is a 61-year-old female admitted with a reason for visit of Hospital Acquired Bacterial Pneumonia. General: Denies: ROS Unobtainable, Chills, Night Sweats, Fatigue, Malaise, Normal Appetite, Other Symptoms Constitutional: Denies: Chills, Fever, Malaise, Night Sweats, Weakness, Fatigue , Weight Loss, Lethargy, Other Eyes: Denies: Pain, Vision change, Conjunctivae inflammation, Eyelid inflammation, Redness, Other ENT: Denies: Head Aches, Ear Pain, Dysphagia, Sinus Congestion, Post Nasal Drip , Sore Throat, Epistaxis, Other Symptoms Skin: Denies: Rash, Lesions, Jaundice, Bruising, Itching, Dry, Breakdown, Nail Changes, Other Pulmonary: Reports: Dyspnea, Denies: Cough, Pleuritic Chest Pain, Other Symptoms Cardiovascular: Denies: Chest Pain, Palpitations, Orthopnea, Paroxysmal Noc. Dyspnea, Edema, Lt Headedness, Other Symptoms Gastrointestinal: Denies: Nausea, Vomiting, Abdominal Pain, Diarrhea, Constipation, Melena, Hematochezia, Other Symptoms Genitourinary: Denies: Dysuria, Frequency, Incontinence, Hematuria, Retention, Other Symptoms Objective Physical Examination General Exam: Positive: Alert, Cooperative, No Acute Distress Eye Exam: Positive: Conjunctiva & lids normal, EOMI, Negative: Sclera icteric ENT Exam: Positive: Atraumatic Chest Exam: Positive: Wheezing, Diminished (absent breath sounds RUL, left coarse breath sounds), Negative: Normal air movement Heart Exam: Positive: Rate Normal Telemetry: Positive: Sinus, Tachycardia Abdomen Exam: Positive: Normal bowel sounds, Soft, Negative: Tenderness Extremity Exam: Negative: Edema Psych Exam: Positive: Oriented x 3 Assessment /Plan Problems (1) Pneumonia Status: Acute Response to Treatment: Improving, Progressing Discussed With: Clinical Neuropsychologist, Patient Problem Specific Plan: Monitor Clinically Problem Text: acute hypoxic respiratory failure - multifactorial CT angio negative for PE Continue with IV antibiotics - dosing increased for HCAP Sputum culture/gram stain pending. Respiratory panel negative. MRSA screen negative - vanco discontinued Likely complicated with pneumonitis - continue IV steroids patient is comfortable, still requiring 10L hi flow further complicated with anxiety - lorazepam as needed repeat abg pending, portable cxr pending (2) History of lung cancer Status: Acute Discussed With: Clinical Neuropsychologist Problem Specific Plan: Consult Specialist Problem Text: Discussed with oncology, assistance appreciated. S/p Keytruda 11/09/16, next session 3 weeks. (3) Rheumatoid arthritis Status: Chronic Problem Text: MTX on hold for concern of exacerbating pneumonitis. (4) STEMI (ST elevation myocardial infarction) Status: Chronic Problem Text: s/p PCI (5) Hyperlipidemia Status: Chronic Problem Text: continue pravastatin (6) Anxiety Status: Chronic Discussed With: Patient Problem Text: Continue lorazepam IV as needed, further complicating factor to her SOB (7) Depression Status: Chronic Discussed With: Patient Problem Text: buproprion, prozac (8) Anemia Status: Chronic Response to Treatment: Stable Problem Specific Plan: Repeat Labs Plan/VTE VTE Prophylaxis Ordered?: Yes Plan Diet: Continue Current Activity: Continue Current Medications: Start Antibiotics, Start Steroids Respiratory: Wean Oxygen Diagnostics: Repeat Labs in AM, Obtain Cultures Anticipated Discharge: Home Extensive discussion with patient and family/friends at bedside. Acute hypoxic respiratory likely multifactorial - mostly pneumonitis s/p Keytruda, complicated with HCAP and anxiety. Continue with Zosyn - dosage increased for HCAP, high dose steroids, lorazepam as needed Oxygen to maintain O2 sat>90% Patient is full code. VS, I&O, 24H, [facility] Vital Signs/I&O Vital Signs Date Time Temp Pulse Resp B/P (MAP) Pulse Ox O2 Delivery O2 Flow Rate FiO2 11/12/16 04:00 98.3 102 20 109/53 (71) 95 High Flow Cannula 10.0 11/11/16 21:50 92 I&O- Last 24 Hours up to 6 AM 11/12/16 05:59 Intake Total 100 ml Output Total 1700 ml Balance -1600 ml Laboratory Data 24H LABS Laboratory Tests 2 11/11/16 12:00: Vancomycin Level Trough 14.0 11/11/16 15:33: Blood Gas Bicarbonate Standard 21.4L, Arterial Blood pH 7.372, Arterial Blood Partial Pressure CO2 38.0, Arterial Blood Partial Pressure O2 47.1*L, Arterial Blood Total CO2 22.7, Arterial Blood HCO3 21.6L, Arterial Blood Base Excess - 3.3L, Arterial Blood Oxygen Saturation 79.6L, Oxygen Delivery Device NASAL SALTY 11/11/16 16:16: B-Type Natriuretic Peptide 549H 11/11/16 16:17: D-Dimer, Quantitative 1172.5H, Total Creatine Kinase 78#, Creatine Kinase MB 1.2 , Creatine Kinase MB Relative Index 1.53, Troponin I 0.03# 11/12/16 04:44: White Blood Count 12.7H, Red Blood Count 2.94L, Hemoglobin 8.5L, Hematocrit 27.5L, Mean Corpuscular Volume 93.4, Mean Corpuscular Hemoglobin 28.7, Mean Corpuscular Hemoglobin Concent 30.8L, Red Cell Distribution Width 15.7H, Platelet Count 551H, Neutrophils (%) (Auto) 97.3H, Lymphocytes (%) (Auto) 1.6L, Monocytes (%) (Auto) 0.6, Eosinophils (%) (Auto) 0.4, Basophils (%) (Auto) 0.0, Neutrophils # (Auto) 12.3H, Lymphocytes # (Auto) 0.2L, Monocytes # (Auto) 0.1, Eosinophils # (Auto) 0.1, Basophils # (Auto) 0.0, Large Unclassified Cells % 0.1 , Large Unclassified Cells # 0.0, Anion Gap 10, Glomerular Filtration Rate > 60.0, Calcium Level 8.9, Aspartate Amino Transf (AST/SGOT) 15, Alanine Aminotransferase (ALT/SGPT) 11L, Alkaline Phosphatase 85, Total Bilirubin 0.3, Direct Bilirubin < 0.1, B-Type Natriuretic Peptide 562H, Total Protein 6.7, Albumin 2.3L, Albumin/Globulin Ratio 0.52L CBC/BMP Laboratory Tests 11/11/16 16:17 Red Blood Count 3.31 L, Mean Corpuscular Volume 94.0, Mean Corpuscular Hemoglobin 28.3, Mean Corpuscular Hemoglobin Concent 30.1 L, Red Cell Distribution Width 15.6 H 11/12/16 04:44 Red Blood Count 2.94 L, Mean Corpuscular Volume 93.4, Mean Corpuscular Hemoglobin 28.7, Mean Corpuscular Hemoglobin Concent 30.8 L, Red Cell Distribution Width 15.7 H, Neutrophils (%) (Auto) 97.3 H, Lymphocytes (%) (Auto ) 1.6 L, Monocytes (%) (Auto) 0.6, Eosinophils (%) (Auto) 0.4, Basophils (%) ( Auto) 0.0, Neutrophils # (Auto) 12.3 H, Lymphocytes # (Auto) 0.2 L, Monocytes # (Auto) 0.1, Eosinophils # (Auto) 0.1, Basophils # (Auto) 0.0 Microbiology Microbiology 11/10/16 Blood Culture - Preliminary, Resulted No growth after 24 hours . All specim... 11/09/16 Blood Culture - Preliminary, Resulted No Growth after 48 hours. All Specime... 11/10/16 Respiratory Virus Panel (PCR) ([facility]) - Final, Complete 11/10/16 Influenza Virus Type A Antigen - Final, Complete 11/10/16 Influenza Virus Type B Antigen - Final, Complete 11/10/16 MRSA Screen - Final, Complete 11/09/16 Urine Culture - Final, Complete JORDAN ORTEGA MD Nov 12, 2016 07:29
--- NOTE | 2016-11-12 07:43 | REP ---
Portable chest, 07:32 a.m., single AP view, the patient semi upright: Comparison is a 03/21/2017. Bilateral alveolar and interstitial infiltrates are again identified, significantly worse on the left, unchanged. There are bilateral pleural effusions, unchanged. Postsurgical changes compatible with right upper lobectomy are again identified, unchanged. Cardiac size is normal. Impression: Bilateral infiltrates and bilateral pleural effusions, unchanged. Signed by Jaya Booker MD 11/12/2016 07:34 A
[2016-11-12 07:45] LABS: MAGNESIUM LEVEL 2.4 MG/DL (1.8-2.4)
[2016-11-12 07:55] LABS: ABG HCO3 24.8 MEQ/L (22.0-26.0); ABG PARTIAL PRESSURE CO2 36.2 mmHg (35.0-45.0); ABG PARTIAL PRESSURE O2 62.9 mmHg (75.0-100.0); ABG STANDARD HCO3 25.3 MEQ/L (22.0-26.0); ABG TOTAL CO2 25.9 MEQ/L (22.0-29.0); ABG pH (ARTERIAL) 7.454 UNITS (7.350-7.450)
[2016-11-12] MEDS: SYMBICORT 160/4.5MCG INHALER 6GM INH SCH ×2 (07:55→20:09)
[2016-11-12] MEDS: LACTOBACILLUS ACIDOPHILUS CAP (BACID) PO SCH ×2 (09:36→17:19)
[2016-11-12] MEDS: FLUoxetine 20 MG CAP PO SCH (09:36)
[2016-11-12] MEDS: CALCIUM CARBONATE 500 MG CHEW U/D PO SCH (09:36)
[2016-11-12] MEDS: OMEPRAZOLE 20 MG CAP PO SCH (09:36)
[2016-11-12] MEDS: buPROPion **XL** TABLET 150MG (WELLBUTRIN XL) PO SCH (09:37)
[2016-11-12] MEDS: VITAMIN D 1,000 INTERNATIONAL UNITS TABLET PO SCH (09:37)
[2016-11-12] MEDS: CYANOCOBALAMIN 500 MCG TAB PO SCH (09:37)
[2016-11-12] MEDS: ASCORBIC ACID 500 MG TAB PO SCH (09:37)
[2016-11-12] MEDS: LORazepam 2 MG/ML VIAL (J2060) IV PRN (10:57)
[2016-11-12] MEDS: MORPHINE 2 MG/ML 1ML SYRINGE IV PRN (11:47)
--- NOTE | 2016-11-12 11:49 | REP ---
CT of the chest without IV contrast: Comparison is the most recent prior chest CT dated 11/09 2016. The patient has a history of lung carcinoma and right upper lobectomy. There are alveolar infiltrates throughout the left upper lobe and left lower lobe that have significantly worsened from the comparison study. There is a left pleural effusion and has not significantly changed. There is a mass-like density in the medial basal segment of the left lower lobe, unchanged. This could represent focal atelectasis. There are alveolar infiltrates throughout the right lower lobe as a significant worsening from the prior study. There is a right pleural effusion that has not significantly changed. There is subsegmental alveolar infiltrates in the right middle lobe, not present previously. No mediastinal adenopathy is identified. No axillary adenopathy. The study is insensitive for hilar adenopathy in the absence of IV contrast. Thoracic aorta is unremarkable. Cardiac size is normal. No pericardial effusions. In the upper abdomen. The patient's known bilateral adrenal nodules are unchanged. The unenhanced hepatic parenchyma and splenic parenchyma are unremarkable. Impression: Significantly worsened alveolar infiltrates bilaterally. Bilateral pleural effusions, not significantly changed. Mass-like density in the medial basilar segment of the left lower lobe, unchanged. Signed by Jaya Booker MD 11/12/2016 11:40 A
--- NOTE | 2016-11-12 15:35 | CR ---
DATE OF CONSULTATION: 11/12/2016 ATTENDING PHYSICIAN: Dr. Cornejo REASON FOR CONSULTATION: Worsening hypoxemia with abnormal CT scan. HISTORY OF THE PRESENT ILLNESS: Ms. Magana is a pleasant 61-year-old female with a history of advanced non-small cell lung carcinoma, status post resection of the right upper lobe in 2001. She was treated with adjuvant chemotherapy and radiation at that time. She presented in July of this year and was found to have recurrence with bony and adrenal metastasis (mets) as well as demonstrable disease in the chest. Adrenal biopsy shows a PD-L1 score of 90%, and she began therapy with Keytruda. On her way home from most recent treatment, she became febrile, shortness of breath with a cough. She presented to our emergency room (ER). She was admitted for worsening hypoxemia. Since admission, she has had progression of her hypoxemia. She has been treated with antibiotics and steroids but despite this, has had progression of an interstitial pattern on her chest x-ray and CT scan. I am asked now to comment further. Her history is also significant for significant underlying coronary artery disease with recent placement of stents. She is chronically on methotrexate for rheumatoid arthritis. She intermittently takes prednisone, but has not been on any before this admission. She denies any significant sputum production. No hemoptysis. Her metastatic bony pain is under reasonable control at this point. She feels she is less short of breath currently on high-flow oxygen. She has somewhat of a dry cough. No recent travel other than to [place] for her Keytruda. ALLERGIES: Listed as SULFA DRUGS cause gastrointestinal (GI) upset. MEDICATIONS: At home: - folic acid - lorazepam - metaxalone 800 mg at night - methotrexate 15 mg once weekly, last taken on 11/03/2016 - omeprazole 20 mg a day - oxycodone as needed - pravastatin 40 mg a day - prasugrel 5 mg daily, recently discontinued - prednisone as needed - Treximet 10-60 one daily - albuterol as needed - Symbicort 160/4.5 two puffs twice a day - bupropion 300 mg a day - cyanocobalamin - fluoxetine 60 mg a day Currently here in the hospital, she is also receiving: - Solu-Medrol 60 mg IV every 8 hours - morphine as needed - Zosyn 4.5 grams IV every 6 hours PAST MEDICAL HISTORY: Significant for: Recurrent non-small cell lung cancer/adenocarcinoma with a PD-L1 score of 90%. Known adrenal and bony mets outside the chest. ST elevation myocardial infarction (SC), status post percutaneous coronary intervention and stents in September of 2015. History of rheumatoid arthritis. High-risk medication/remittive agents. Underlying obstructive lung disease. Anxiety and depression. Chronic anemia. Gastroesophageal reflux disease. Hyperlipidemia. SURGICAL HISTORY: She has had a tubal ligation. She has had resection of right-sided lung cancer. Previous colonoscopy. SOCIAL HISTORY: Reformed tobacco abuser. No alcohol. Lives at home with family. FAMILY HISTORY: Significant for mother with breast cancer and father with hypertension. REVIEW OF SYSTEMS: As per the history of the present illness. Otherwise, CONSTITUTIONAL: Significant for recent fever. HEENT: Unremarkable for double vision, blurry vision. PULMONARY: As per the history of the present illness. CARDIAC: Significant for her previous SC. GASTROINTESTINAL: Significant for reflux. GENITOURINARY: Unremarkable for dysuria or urgency. NEUROLOGICAL: Unremarkable for seizure or strokes. ENDOCRINE: Significant for hypercholesterolemia. HEMATOLOGIC: Significant for anemia. MUSCULOSKELETAL: Significant for chronic pain and her known mets. IMMUNOLOGIC: Significant for her rheumatoid arthritis. PSYCHIATRIC: Significant for anxiety. PHYSICAL EXAMINATION: Currently reveals a pleasant female, appears her stated age, currently resting comfortably with high-flow oxygen in place. Temperature 98.3, heart rate approximately 100 and regular. Blood pressure 116/68. Respiratory rate about 22-24 without accessory muscle use. Saturation currently 95% on a 20-25 liter Comfort Rj delivery system. HEENT: Shows her oxygen delivery system in place. Pupils are reactive. Sclera are clear. Membranes are reasonably moist. NECK: With diminished mobility consistent with age. Trachea is in the midline. CHEST: Shows scars consistent with her previous thoracotomy on the right. Expansion is diminished but reasonably symmetric. There are coarse paninspiratory crackles, much more notable on the left than the right, noted both anteriorly and posteriorly. There are some independently on the left. No rubs. No overall convincing egophony. No wheezing or rhonchi. CARDIAC EXAM: Mildly tachycardic but regular. Peripheral pulses are palpable. Trace edema at best. No obvious murmur, gallop or rub. ABDOMEN: Soft with active bowel sounds. No convincing organomegaly or masses. EXTREMITIES: Show no obvious cyanosis or clubbing. NEUROLOGIC: She is awake, alert and appropriate. PSYCHIATRIC: With normal mood and affect. Pulse oximetry is outlined above. LABORATORY: Most recent laboratories: White blood cell count 12.7, hemoglobin 8.5, platelet count 551,000, 97% segmented neutrophils, no bands. Sodium 146, potassium (K) of 3.9, chloride 109, CO2 27, BUN 26, creatinine 0.85. Most recent troponin 0.73. It was 0.03 on admission. Blood gas done earlier this morning on high-flow cannula shows a pH of 7.454, pCO2 of 36.2 and a pO2 of 62.9. Chest x-rays and CT scans are reviewed. I cannot disagree with the dictated report regarding worsening alveolar and interstitial markings compared to a scan from 3 days ago. She does have bilateral effusions. Evidence of her previous right upper lobectomy. Mass-like density in the left base unchanged. Adrenal lesion unchanged. IMPRESSION: 1. Hypoxemia, multifactorial. 2. High-risk medications/Keytruda/methotrexate/intermittent steroids. 3. Stage IV non-small cell carcinoma of the lung, PD-L1 score of 90%. 4. Underlying obstructive lung disease. 5. Rheumatoid arthritis, on remittive agents. RECOMMENDATIONS: At this point, the most likely candidates are Keytruda pneumonitis and/or methotrexate toxicity. I can not discount an element of vascular congestion, especially in view of her known cardiac dysfunction and her mildly elevated troponin. She has been diuresed a little over a liter and a half since admission and her BUN and creatinine have tolerated this reasonably. I do not think it at all inappropriate to continue gentle diuresis as tolerated. She was to have a port placed in [place] tomorrow as an outpatient. This is currently on hold. Certainly, I would continue her IV steroids at this point. As for either the Keytruda or the methotrexate, it really is the therapy of choice. I believe her dose is sufficient. Empiric antimicrobials are not at all unwarranted. I would continue them as well. I did discuss her situation at length with not only the primary service but the patient and her sister, who is at the bedside. Regarding further therapy, that will need to be decided between the patient and her oncologist. For now, hopefully she has reached the peak of her decompensation but only time will tell. Literature suggests that the first 48-72 hours certainly are the worst and response to steroids is usually within that time period. A small percentage of patients with Keytruda pneumonitis have progressed to intubation and . We will continue to monitor her closely. Further recommendations will be made in the progress record as new information becomes available. MTDD
[2016-11-12] MEDS: LORazepam 0.5 MG TAB PO PRN (17:19)
[2016-11-12] MEDS: FUROSEMIDE 40 MG/4 ML VIAL (J1940) IV SCH (17:36)
[2016-11-12] MEDS: PRAVASTATIN 20 MG TAB PO SCH (21:53)
[2016-11-12] MEDS: METAXALONE 800 MG TABLET PO SCH (21:53)
[2016-11-12] MEDS: LORazepam 0.5 MG TAB PO SCH (21:53)
[2016-11-13] VITALS: BP 119/56
--- NOTE | 2016-11-13 00:03 | ECGEPIP ---
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 HEART RATE IS NOW SLOWER AND SD INTERVAL IS LONGER Electronically Signed On 11-13-2016 0:03:08 EDT by Dada Rebolledo
[2016-11-13] MEDS ORDERED: SLF 3 ML SYR IV PRN (00:45)
[2016-11-13] MEDS: LEVALBUTEROL 1.25 MG/0.5 ML CONCENTRATE NEB NEB SCH ×3 (01:25→20:00)
[2016-11-13] MEDS: PIPERACILLIN/TAZOBACTAM SOD 4.5 GM in D5W MINI-BAG PLUS 50 ML IV SCH ×4 (03:53→21:30)
[2016-11-13 04:00] VITALS: BP 98/54
[2016-11-13] MEDS: methylPREDNISolone INJ 125 MG/2 ML VIAL (J2930) IV SCH ×3 (05:40→21:30)
[2016-11-13] MEDS: SLF 3 ML SYR IV SCH ×3 (05:41→21:31)
[2016-11-13] MEDS: HEPARIN SOD (PORCINE) 5000 UNITS/ML VIAL SC SCH ×3 (05:41→21:30)
--- NOTE | 2016-11-13 05:52 | ECHO ---
DATE OF PROCEDURE: 11/12/2016 DATE OF : 1955 AGE: 61 REFERRING PROVIDER: Dr. Isaiah Cornejo. PATIENT LOCATION: Room 3214. REASON FOR ECHOCARDIOGRAM: Shortness of breath. 2D MEASUREMENTS: IVS: 0.9 cm LV: 3.8 cm LVPW: 0.9 cm LA: 3.0 cm Aorta: 3.0 cm DOPPLER MEASUREMENTS: Peak velocity across the aortic valve: 1.9 m/s Mitral E: 0.58 Mitral A: 0.86 Ratio 0.7 Maximum tricuspid valve velocity: 2.3 m/s 2D COMMENTS: 1. Normal left ventricular size, wall thickness and normal global left ventricular systolic function. Left ventricular systolic ejection fraction is estimated at 60% to 65%. 2. Normal left atrium. Normal right atrium and right ventricle. 3. The atrial septum appeared to be normal without evidence of defect or shunt. 4. Normal aortic root. 5. Trace pericardial effusion noted only at the base of the left ventricle posteriorly. 6. Mildly calcified aortic valve, leaflet excursion appeared to be normal. Normal mitral valve, and tricuspid valve. The pulmonic valve and proximal pulmonary artery branches were not well visualized. 7. The inferior vena cava appeared to be normal in size. DOPPLER: It detects mild aortic regurgitation and mild tricuspid regurgitation. The calculated pulmonary artery systolic pressure varied between 30 to 40 mmHg. Abnormal relaxation pattern was noted across the mitral valve leaflets that may be related to grade 1 left ventricular diastolic dysfunction. IMPRESSION: 1. Normal global left ventricular systolic function. There are features of left ventricular diastolic dysfunction, grade 1. 2. Aortic valve sclerosis with mild aortic regurgitation and trivial aortic stenosis. 3. Mild tricuspid regurgitation with mild pulmonary hypertension. 4. Trace pericardial effusion noted at the base of the left ventricle posteriorly, no evidence of cardiac tamponade. [facility]
[2016-11-13 06:02] LABS: EOS % 0.1 % (0.0-3.0); LARGE UNSTAINED CELL % 0.1 % (0.0-4.0); LYMPH # 0.2 K/mm3 (1.5-4.5); LYMPH % 1.9 % (24.0-44.0); MEAN CORPUSCULAR HEMOGLOBIN 29.4 pg (27.0-33.0); MEAN CORPUSCULAR HGB CONC 31.6 g/dl (32.0-36.5); MONO # 0.1 K/mm3 (0.0-0.8); MONO % 1.2 % (0.0-5.0); NEUTROPHILS % 96.7 % (36.0-66.0); PLATELET COUNT, AUTOMATED 515 k/mm3 (150-450); RED CELL DISTRIBUTION WIDTH 15.9 % (11.5-14.5); WHITE BLOOD COUNT 11.4 K/mm3 (4.0-10.0)
[2016-11-13 06:25] LABS: ALBUMIN 2.1 GM/DL (3.2-5.2); ALBUMIN/GLOBULIN RATIO 0.48 (1.00-1.93); ALKALINE PHOSPHATASE 83 U/L (45-117); ALT/SGPT 14 U/L (12-78); ANION GAP 6 MEQ/L (8-16); AST/SGOT 9 U/L (15-37); BILIRUBIN,DIRECT 0.1 MG/DL (0.0-0.2); BILIRUBIN,TOTAL 0.4 MG/DL (0.2-1.0); BLOOD UREA NITROGEN 28 MG/DL (7-18); CALCIUM LEVEL 8.8 MG/DL (8.5-10.1); CARBON DIOXIDE LEVEL 32 MEQ/L (21-32); CHLORIDE LEVEL 104 MEQ/L (98-107); CREATININE FOR GFR 0.84 MG/DL (0.55-1.02); GLOMERULAR FILTRATION RATE > 60.0 (>51); GLUCOSE, FASTING 137 MG/DL (70-105); POTASSIUM SERUM 3.3 MEQ/L (3.5-5.1); SODIUM LEVEL 142 MEQ/L (136-145); TOTAL PROTEIN 6.5 GM/DL (6.4-8.2)
[2016-11-13 06:53] LABS: MAGNESIUM LEVEL 2.2 MG/DL (1.8-2.4)
[2016-11-13 08:00] VITALS: BP 110/59
[2016-11-13] MEDS: SYMBICORT 160/4.5MCG INHALER 6GM INH SCH ×2 (08:27→20:11)
[2016-11-13] MEDS: ASCORBIC ACID 500 MG TAB PO SCH (09:43)
[2016-11-13] MEDS: LACTOBACILLUS ACIDOPHILUS CAP (BACID) PO SCH ×2 (09:43→16:40)
[2016-11-13] MEDS: VITAMIN D 1,000 INTERNATIONAL UNITS TABLET PO SCH (09:43)
[2016-11-13] MEDS: FUROSEMIDE 40 MG/4 ML VIAL (J1940) IV SCH ×2 (09:43→16:40)
[2016-11-13] MEDS: CALCIUM CARBONATE 500 MG CHEW U/D PO SCH (09:43)
[2016-11-13] MEDS: CYANOCOBALAMIN 500 MCG TAB PO SCH (09:44)
[2016-11-13] MEDS: FLUoxetine 20 MG CAP PO SCH (09:44)
[2016-11-13] MEDS: buPROPion **XL** TABLET 150MG (WELLBUTRIN XL) PO SCH (09:44)
[2016-11-13] MEDS: OMEPRAZOLE 20 MG CAP PO SCH (09:44)
[2016-11-13] MEDS: LORazepam 2 MG/ML VIAL (J2060) IV PRN ×2 (09:59→15:07)
--- NOTE | 2016-11-13 10:08 | IPNPDOC ---
Subjective Date Seen The patient was seen on 11/13/16. Subjective Chief Complaint/HPI The patient is a 61-year-old female admitted with a reason for visit of Hospital Acquired Bacterial Pneumonia. General: Denies: ROS Unobtainable, Chills, Night Sweats, Fatigue, Malaise, Normal Appetite, Other Symptoms Constitutional: Denies: Chills, Fever, Malaise, Night Sweats, Weakness, Fatigue , Weight Loss, Lethargy, Other Eyes: Denies: Pain, Vision change, Conjunctivae inflammation, Eyelid inflammation, Redness, Other ENT: Denies: Head Aches, Ear Pain, Dysphagia, Sinus Congestion, Post Nasal Drip , Sore Throat, Epistaxis, Other Symptoms Skin: Denies: Rash, Lesions, Jaundice, Bruising, Itching, Dry, Breakdown, Nail Changes, Other Pulmonary: Reports: Dyspnea, Denies: Cough, Pleuritic Chest Pain, Other Symptoms Cardiovascular: Denies: Chest Pain, Palpitations, Orthopnea, Paroxysmal Noc. Dyspnea, Edema, Lt Headedness, Other Symptoms Gastrointestinal: Denies: Nausea, Vomiting, Abdominal Pain, Diarrhea, Constipation, Melena, Hematochezia, Other Symptoms Objective Physical Examination General Exam: Positive: Alert, Cooperative, No Acute Distress Eye Exam: Positive: Conjunctiva & lids normal, EOMI, Negative: Sclera icteric ENT Exam: Positive: Atraumatic Chest Exam: Positive: Wheezing, Diminished (absent breath sounds RUL, left coarse breath sounds), Negative: Normal air movement Heart Exam: Positive: Rate Normal Telemetry: Positive: Sinus, Tachycardia Abdomen Exam: Positive: Normal bowel sounds, Soft, Negative: Tenderness Extremity Exam: Negative: Edema Psych Exam: Positive: Oriented x 3 Assessment /Plan Problems (1) Pneumonia Status: Acute Response to Treatment: Improving, Progressing Discussed With: Product Manufacturing Professional, Patient Problem Specific Plan: Monitor Clinically Problem Text: acute hypoxic respiratory failure - multifactorial pneumonitis - continue iv steroid therapy CT angio negative for PE Continue with IV antibiotics Sputum culture/gram stain pending - no cough today Respiratory panel negative. MRSA screen negative - vanco discontinued patient is much more comfortable today, still requiring 10L hi flow further complicated with anxiety - lorazepam as needed pulmonology consultation greatly appreciated (2) History of lung cancer Status: Acute Discussed With: Product Manufacturing Professional Problem Specific Plan: Consult Specialist Problem Text: Discussed with oncology, assistance appreciated. S/p Keytrshanika 11/09/16, next session 3 weeks. (3) Rheumatoid arthritis Status: Chronic Problem Text: MTX on hold for concern of exacerbating pneumonitis. (4) STEMI (ST elevation myocardial infarction) Status: Chronic Problem Text: s/p PCI (5) Hyperlipidemia Status: Chronic Problem Text: continue pravastatin (6) Anxiety Status: Chronic Discussed With: Patient Problem Text: Continue lorazepam IV as needed, further complicating factor to her SOB (7) Depression Status: Chronic Discussed With: Patient Problem Text: buproprion, prozac (8) Anemia Status: Chronic Response to Treatment: Stable Problem Specific Plan: Repeat Labs Plan/VTE VTE Prophylaxis Ordered?: Yes Plan Diet: Continue Current Activity: Continue Current Medications: Start Antibiotics, Start Steroids Respiratory: Wean Oxygen Diagnostics: Repeat Labs in AM, Obtain Cultures Anticipated Discharge: Home Severe acute hypoxic respiratory failure, multifactorial - pneumonitis secondary to Keytruda +/- HCAP complicated with MTX Continue IV steroids, IV antibiotics. Further complicated with anxiety - continue with anxiolytics. Extensive discussion with son and daughter (Mingo Brewer - [phone], [place]) over telephone. VS, I&O, 24H, [facility] Vital Signs/I&O Vital Signs Date Time Temp Pulse Resp B/P (MAP) Pulse Ox O2 Delivery O2 Flow Rate FiO2 11/13/16 09:04 Nasal Cannula 20.0 11/13/16 08:27 100 11/13/16 08:00 97.1 96 18 110/59 (76) 90 I&O- Last 24 Hours up to 6 AM 11/13/16 06:00 Intake Total 955 ml Output Total 1450 ml Balance -495 ml Laboratory Data 24H LABS Laboratory Tests 2 11/12/16 12:28: Total Creatine Kinase 84, Creatine Kinase MB 2.6, Creatine Kinase MB Relative Index 3.09, Troponin I 0.73#H 11/12/16 18:22: Total Creatine Kinase 68, Creatine Kinase MB 2.4, Creatine Kinase MB Relative Index 3.52, Troponin I 0.70H 11/13/16 05:23: White Blood Count 11.4H, Red Blood Count 3.00L, Hemoglobin 8.8L, Hematocrit 27.9L, Mean Corpuscular Volume 93.0, Mean Corpuscular Hemoglobin 29.4, Mean Corpuscular Hemoglobin Concent 31.6L, Red Cell Distribution Width 15.9H, Platelet Count 515H, Neutrophils (%) (Auto) 96.7H, Lymphocytes (%) (Auto) 1.9L, Monocytes (%) (Auto) 1.2, Eosinophils (%) (Auto) 0.1, Basophils (%) (Auto) 0.0, Neutrophils # (Auto) 11.0H, Lymphocytes # (Auto) 0.2L, Monocytes # (Auto) 0.1, Eosinophils # (Auto) 0.0, Basophils # (Auto) 0.0, Large Unclassified Cells % 0.1 , Large Unclassified Cells # 0.0, Anion Gap 6L, Glomerular Filtration Rate > 60.0, Calcium Level 8.8, Magnesium Level 2.2, Aspartate Amino Transf (AST/SGOT) 9L, Alanine Aminotransferase (ALT/SGPT) 14, Alkaline Phosphatase 83, Total Bilirubin 0.4, Direct Bilirubin 0.1, Total Protein 6.5, Albumin 2.1L, Albumin/ Globulin Ratio 0.48L CBC/BMP Laboratory Tests 11/13/16 05:23 Red Blood Count 3.00 L, Mean Corpuscular Volume 93.0, Mean Corpuscular Hemoglobin 29.4, Mean Corpuscular Hemoglobin Concent 31.6 L, Red Cell Distribution Width 15.9 H, Neutrophils (%) (Auto) 96.7 H, Lymphocytes (%) (Auto ) 1.9 L, Monocytes (%) (Auto) 1.2, Eosinophils (%) (Auto) 0.1, Basophils (%) ( Auto) 0.0, Neutrophils # (Auto) 11.0 H, Lymphocytes # (Auto) 0.2 L, Monocytes # (Auto) 0.1, Eosinophils # (Auto) 0.0, Basophils # (Auto) 0.0 Microbiology Microbiology 11/10/16 Blood Culture - Preliminary, Resulted No Growth after 72 hours. All specime... 11/09/16 Blood Culture - Preliminary, Resulted No Growth after 72 hours. All specime... 11/10/16 Respiratory Virus Panel (PCR) ([facility]) - Final, Complete 11/10/16 Influenza Virus Type A Antigen - Final, Complete 11/10/16 Influenza Virus Type B Antigen - Final, Complete 11/10/16 MRSA Screen - Final, Complete 11/09/16 Urine Culture - Final, Complete LALDIN,JORDAN S. MD Nov 13, 2016 10:08
[2016-11-13] MEDS ORDERED: POTASSIUM CHLORIDE 10 MEQ SR TABLET PO ONE (10:15)
[2016-11-13 12:00] VITALS: BP 94/51
[2016-11-13 16:40] VITALS: BP 111/56
--- NOTE | 2016-11-13 18:04 | IPN ---
DATE: 11/13/2016 MEDICAL ONCOLOGY INPATIENT FOLLOWUP Urvashi has persistent hypoxia still requiring supplemental oxygen, currently on high-pressure nasal cannula. Oxygen saturation peaked at 97% today, 92% currently. She reports subjectively feeling better, particularly after Lasix. I have now spoken with her primary oncologist in [place], Fatemeh Ibanez MD ([phone]). From Dr. Ibanez, I got the following history: 1. Stage III B adenocarcinoma of lung in 2002 status post right upper lobectomy , chemotherapy and radiation. 2. 2017 bone and adrenal recurrence diagnosed in late spring, but with rapid evolution of additional metastases involving a left-sided pleural-based pulmonary metastasis and new skin metastatic nodules in the last month. She was started on pembrolizumab 11/09/2016, the day of her admission here. She had had some cough and exertional dyspnea for two weeks prior to starting the pembrolizumab, but rapidly developed fever, shortness of breath, cough and was admitted with hypoxia, fever and bilateral ground-glass opacities on chest CT without evidence of pulmonary embolism. Urvashi's been on high-dose Solu-Medrol for several days now, as well as broad-spectrum antibiotics for presumptive hospital-acquired pneumonia. My strong suspicion is her current pulmonary status is multifactorial, including possible underlying but clinically inapparent lymphangitic spread of disease, pneumonia, and possible superimposed immune-mediated reaction to pembrolizumab. In the setting of being status post right upper lobectomy and prior radiation, her baseline pulmonary function is moderately compromised and her ability to tolerate new insults less robust. IMPRESSION: Metastatic PD-L1 high adenocarcinoma of lung with recent diagnosis of late metastatic recurrence after original 2002 stage III B diagnosis and treatment. Now with acute onset hypoxia, widespread ground-glass opacities, left pleural-based mass and skin lesions in the setting of beginning pembrolizumab 11/09/2016. Multifactorial hypoxia. PLAN/RECOMMENDATIONS 1. I would strongly recommend converting the patient from Solu-Medrol to 1 mg/ kg prednisone as standard treatment for checkpoint inhibitor-related immune- mediated pneumonitis. This can be titrated up or down. Her current weight would warrant a 60 -- SIXTY -- mg prednisone dose orally daily with appropriate proton pump inhibitor (PPI) gastrointestinal (GI) protection. 2. Continue broad-spectrum antibiotics. 3. Continue supplemental oxygen. Wean as tolerated. 4. I will follow closely. Dr. Fleming is to send records. If we can get Urvashi through this initial episode of inflammatory response to treatment and/or pneumonia, she may have a good response to the anti PD-L1 one drug, though is likely not a candidate to continue it and we may have to explore chemotherapies in the future. 5. Continue off methotrexate, given the possibility methotrexate-associated pneumonitis could also be a contributing factor to Urvashi's hypoxia. MTDD
[2016-11-13 20:00] VITALS: BP 112/62
[2016-11-13] MEDS: LORazepam 0.5 MG TAB PO SCH (21:29)
[2016-11-13] MEDS: METAXALONE 800 MG TABLET PO SCH (21:29)
[2016-11-13] MEDS: PRAVASTATIN 20 MG TAB PO SCH (21:29)
[2016-11-14] VITALS (7 sets, daily range): BP systolic 102–116; BP diastolic 52–62; O2SAT 93
[2016-11-14 00:07] LABS: ORGANISM ID Not indicated. (.); SPECIMEN SOURCE Urine (.)
[2016-11-14] MEDS: LEVALBUTEROL 1.25 MG/0.5 ML CONCENTRATE NEB NEB SCH ×4 (01:29→20:00)
[2016-11-14] MEDS: SLF 3 ML SYR IV SCH ×3 (03:58→21:33)
[2016-11-14] MEDS: PIPERACILLIN/TAZOBACTAM SOD 4.5 GM in D5W MINI-BAG PLUS 50 ML IV SCH ×4 (03:58→21:33)
[2016-11-14] MEDS: HEPARIN SOD (PORCINE) 5000 UNITS/ML VIAL SC SCH ×3 (05:07→21:33)
[2016-11-14] MEDS: methylPREDNISolone INJ 125 MG/2 ML VIAL (J2930) IV SCH ×3 (05:08→21:32)
[2016-11-14 06:19] LABS: EOS % 0.1 % (0.0-3.0); LARGE UNSTAINED CELL % 0.4 % (0.0-4.0); LYMPH # 0.3 K/mm3 (1.5-4.5); LYMPH % 2.9 % (24.0-44.0); MEAN CORPUSCULAR HEMOGLOBIN 29.1 pg (27.0-33.0); MEAN CORPUSCULAR HGB CONC 31.8 g/dl (32.0-36.5); MEAN CORPUSCULAR VOLUME 91.4 fl (80.0-96.0); MONO # 0.2 K/mm3 (0.0-0.8); MONO % 2.2 % (0.0-5.0); NEUTROPHILS # 8.1 K/mm3 (1.8-7.7); NEUTROPHILS % 94.5 % (36.0-66.0); PLATELET COUNT, AUTOMATED 622 k/mm3 (150-450); RED CELL DISTRIBUTION WIDTH 15.5 % (11.5-14.5); WHITE BLOOD COUNT 8.6 K/mm3 (4.0-10.0)
[2016-11-14 06:23] LABS: ALBUMIN 2.2 GM/DL (3.2-5.2); ALBUMIN/GLOBULIN RATIO 0.49 (1.00-1.93); ALKALINE PHOSPHATASE 84 U/L (45-117); ALT/SGPT 10 U/L (12-78); ANION GAP 11 MEQ/L (8-16); AST/SGOT 8 U/L (15-37); BILIRUBIN,DIRECT 0.1 MG/DL (0.0-0.2); BILIRUBIN,TOTAL 0.3 MG/DL (0.2-1.0); BLOOD UREA NITROGEN 29 MG/DL (7-18); CALCIUM LEVEL 8.7 MG/DL (8.5-10.1); CARBON DIOXIDE LEVEL 32 MEQ/L (21-32); CHLORIDE LEVEL 99 MEQ/L (98-107); CREATININE FOR GFR 0.98 MG/DL (0.55-1.02); GLOMERULAR FILTRATION RATE > 60.0 (>51); GLUCOSE, FASTING 164 MG/DL (70-105); SODIUM LEVEL 142 MEQ/L (136-145); TOTAL PROTEIN 6.7 GM/DL (6.4-8.2)
[2016-11-14] MEDS: SYMBICORT 160/4.5MCG INHALER 6GM INH SCH ×2 (07:36→20:17)
[2016-11-14] MEDS: LACTOBACILLUS ACIDOPHILUS CAP (BACID) PO SCH ×2 (09:16→17:18)
[2016-11-14] MEDS: FUROSEMIDE 40 MG/4 ML VIAL (J1940) IV SCH ×2 (09:16→17:18)
[2016-11-14] MEDS: VITAMIN D 1,000 INTERNATIONAL UNITS TABLET PO SCH (09:16)
[2016-11-14] MEDS: POTASSIUM CHLORIDE 10 MEQ SR TABLET PO SCH ×2 (09:17→21:32)
[2016-11-14] MEDS: CALCIUM CARBONATE 500 MG CHEW U/D PO SCH (09:18)
[2016-11-14] MEDS: FLUoxetine 20 MG CAP PO SCH (09:18)
[2016-11-14] MEDS: buPROPion **XL** TABLET 150MG (WELLBUTRIN XL) PO SCH (09:18)
[2016-11-14] MEDS: ASCORBIC ACID 500 MG TAB PO SCH (09:18)
[2016-11-14] MEDS: OMEPRAZOLE 20 MG CAP PO SCH (09:18)
[2016-11-14] MEDS: CYANOCOBALAMIN 500 MCG TAB PO SCH (09:19)
[2016-11-14] MEDS: LORazepam 0.5 MG TAB PO PRN (09:34)
--- NOTE | 2016-11-14 10:14 | REP ---
PORTABLE CHEST: AP portable view of the chest is performed and compared to prior study of 11/12/2016. There are again diffuse bilateral infiltrates, left greater than right. The infiltrates on the left have improved somewhat since the prior study. The remainder of the study is unchanged. IMPRESSION: Bilateral infiltrates are again noted, unchanged on the right and improved on the left. Signed by Jaya Horvath MD 11/14/2016 05:07 P
[2016-11-14] MEDS: NAPROXEN PO PRN (12:56)
[2016-11-14] MEDS: SUMATRIPTAN PO PRN (12:56)
--- NOTE | 2016-11-14 14:22 | IPNPDOC ---
Text Note Date of Service The patient was seen on 11/14/16. NOTE Subjective: Patient is 61 year female with a PMHx of NSCLA s/p R lobectomy / chemotherapy / radiation (2001), with recent recurrence 07/2016 (restarted chemotherapy), STEMI s/p stent, DLP, Anemia, RA, Asthma, Anxiety / Depression who presented to the ER with complaints of SOB and fever after she recently completed chemotherapy in [place]. She was admitted to PCU for pneumonia and had consultation with Oncology (Dr. Larsen) and Pulmonary (Dr. Schaefer). She was treated for HCAP and possible pneumonitis 2/2 chemotherapy. Patient was seen and examined at the bedside. Currently she notes improvement in her breathing. She notes that her cough still persists. She also notes SOB with ambulation that has not fully resolved. No fevers reported. Objective: Vitals (See below) General: Lying in bed, no acute distress, comfortable, AAOx3 HEENT: NC, AT CVS: RRR, +S1S2 Lungs: Fair air entry b/l, mild crackles bilateral lung base Abdomen: Soft, ND, NT, +BSx4 Extremities: - Edema, - Calf tenderness Assessment and plan: 1. Dyspnea - 2/2 acute hypoxic respiratory failure - likely 2/2 pneumonia (HCAP ) and possibly pneumonitis 2/2 chemotherapy (Keytruda) - Clinically has improvement in her breathing; not at baseline - Requiring supplemental oxygen - Physical with crackles at bilateral lung bases - Cultures negative ; MRSA screen negative - CTA chest 11/10: negative for pulmonary embolism; pleural effusions, right lobectioms, traction bronchiectasis, possible multifactorial pneumonia - c/w Solumedrol (Day #3; will decrease to Prednisone on 11/15) - c/w Zosyn (Day #3); s/p Vancomycin - Dr. Schaefer and Dr. Larsen on consult; appreciate their input 2. NSCLA - s/p R lobectomy / chemotherapy / radiation (2001) - Recurrence 07/2016 (restarted chemotherapy; s/p Keytruda 11/09/16, next session 3 weeks) - Dr. Larsen on consult 3. STEMI s/p stent - c/w Pravastatin, ASA and Effient 4. DLP - c/w Pravastatin 5. Normocytic Anemia - Hg stable - Continue to follow 6. Thrombocytosis - likely reactive - will monitor for now 7. RA - on Methotrexate as an outpatient 8. Asthma - c/w Budesonide and Levalbuterol PRN 9. Anxiety / Depression - c/w Bupropion, Fluoxetine, Lorazepam PRN 10. GI prophylaxis - c/w Omeprazole 11. DVT prophylaxis - c/w Heparin VS,Fishbone, I+O VS, Fishbone, I+O Laboratory Tests 11/14/16 05:30 Red Blood Count 3.34 L, Mean Corpuscular Volume 91.4, Mean Corpuscular Hemoglobin 29.1, Mean Corpuscular Hemoglobin Concent 31.8 L, Red Cell Distribution Width 15.5 H, Neutrophils (%) (Auto) 94.5 H, Lymphocytes (%) (Auto ) 2.9 L, Monocytes (%) (Auto) 2.2, Eosinophils (%) (Auto) 0.1, Basophils (%) ( Auto) 0.0, Neutrophils # (Auto) 8.1 H, Lymphocytes # (Auto) 0.3 L, Monocytes # ( Auto) 0.2, Eosinophils # (Auto) 0.0, Basophils # (Auto) 0.0 Vital Signs Date Time Temp Pulse Resp B/P (MAP) Pulse Ox O2 Delivery O2 Flow Rate FiO2 11/14/16 12:00 97.2 97 22 105/56 (72) 95 Comfort Flow 20.0 11/14/16 10:51 70 I&O- Last 24 Hours up to 6 AM 11/14/16 06:00 Intake Total 1040 ml Output Total 1750 ml Balance -710 ml RADU TYLER MD Nov 14, 2016 14:22
[2016-11-14] MEDS: LORazepam 2 MG/ML VIAL (J2060) IV PRN (17:18)
[2016-11-14] MEDS: LORazepam 0.5 MG TAB PO SCH (21:31)
[2016-11-14] MEDS: METAXALONE 800 MG TABLET PO SCH (21:32)
[2016-11-14] MEDS: PRAVASTATIN 20 MG TAB PO SCH (21:32)
[2016-11-15] VITALS (7 sets, daily range): BP systolic 95–119; BP diastolic 51–59
[2016-11-15] MEDS: LEVALBUTEROL 1.25 MG/0.5 ML CONCENTRATE NEB NEB SCH ×4 (01:27→20:00)
[2016-11-15] MEDS: SLF 3 ML SYR IV SCH ×3 (03:48→22:00)
[2016-11-15] MEDS: PIPERACILLIN/TAZOBACTAM SOD 4.5 GM in D5W MINI-BAG PLUS 50 ML IV SCH ×4 (03:48→20:08)
[2016-11-15] MEDS: HEPARIN SOD (PORCINE) 5000 UNITS/ML VIAL SC SCH ×3 (05:15→22:12)
[2016-11-15 05:54] LABS: EOS % 0.3 % (0.0-3.0); LARGE UNSTAINED CELL % 0.4 % (0.0-4.0); LYMPH # 0.3 K/mm3 (1.5-4.5); LYMPH % 3.2 % (24.0-44.0); MEAN CORPUSCULAR HEMOGLOBIN 28.7 pg (27.0-33.0); MEAN CORPUSCULAR HGB CONC 31.6 g/dl (32.0-36.5); MEAN CORPUSCULAR VOLUME 90.8 fl (80.0-96.0); MONO # 0.2 K/mm3 (0.0-0.8); MONO % 2.3 % (0.0-5.0); NEUTROPHILS # 7.3 K/mm3 (1.8-7.7); NEUTROPHILS % 93.8 % (36.0-66.0); PLATELET COUNT, AUTOMATED 551 k/mm3 (150-450); RED CELL DISTRIBUTION WIDTH 15.7 % (11.5-14.5); WHITE BLOOD COUNT 7.8 K/mm3 (4.0-10.0)
[2016-11-15 06:09] LABS: ANION GAP 11 MEQ/L (8-16); BLOOD UREA NITROGEN 37 MG/DL (7-18); CARBON DIOXIDE LEVEL 31 MEQ/L (21-32); CHLORIDE LEVEL 100 MEQ/L (98-107); CREATININE FOR GFR 0.94 MG/DL (0.55-1.02); GLOMERULAR FILTRATION RATE > 60.0 (>51); GLUCOSE, FASTING 135 MG/DL (70-105); POTASSIUM SERUM 3.6 MEQ/L (3.5-5.1); SODIUM LEVEL 142 MEQ/L (136-145)
[2016-11-15] MEDS: SYMBICORT 160/4.5MCG INHALER 6GM INH SCH ×2 (07:42→20:10)
[2016-11-15] MEDS: FUROSEMIDE 40 MG/4 ML VIAL (J1940) IV SCH (09:01)
[2016-11-15] MEDS: predniSONE 20 MG TAB PO SCH (09:01)
[2016-11-15] MEDS: FLUoxetine 20 MG CAP PO SCH (09:01)
[2016-11-15] MEDS: OMEPRAZOLE 20 MG CAP PO SCH (09:02)
[2016-11-15] MEDS: CYANOCOBALAMIN 500 MCG TAB PO SCH (09:02)
[2016-11-15] MEDS: LACTOBACILLUS ACIDOPHILUS CAP (BACID) PO SCH ×2 (09:02→17:25)
[2016-11-15] MEDS: CALCIUM CARBONATE 500 MG CHEW U/D PO SCH (09:02)
[2016-11-15] MEDS: buPROPion **XL** TABLET 150MG (WELLBUTRIN XL) PO SCH (09:02)
[2016-11-15] MEDS: ASCORBIC ACID 500 MG TAB PO SCH (09:02)
[2016-11-15] MEDS: VITAMIN D 1,000 INTERNATIONAL UNITS TABLET PO SCH (09:02)
[2016-11-15] MEDS: POTASSIUM CHLORIDE 10 MEQ SR TABLET PO SCH (09:02)
[2016-11-15] MEDS: BENZONATATE 100 MG CAP PO SCH ×3 (10:35→20:09)
--- NOTE | 2016-11-15 13:08 | IPNPDOC ---
Text Note Date of Service The patient was seen on 11/15/16. NOTE Subjective: Patient is 61 year female with a PMHx of NSCLA s/p R lobectomy / chemotherapy / radiation (2001), with recent recurrence 07/2016 (restarted chemotherapy), STEMI s/p stent, DLP, Anemia, RA, Asthma, Anxiety / Depression who presented to the ER with complaints of SOB and fever after she recently completed chemotherapy in [place]. She was admitted to PCU for pneumonia and had consultation with Oncology (Dr. Larsen) and Pulmonary (Dr. Schaefer). She was treated for HCAP and possible pneumonitis 2/2 chemotherapy. Patient was seen and examined at the bedside. She notes that her breathing continues to improve. Her cough has shown continued improvement. Objective: Vitals (See below) General: Lying in bed, no acute distress, comfortable, AAOx3 HEENT: NC, AT CVS: RRR, +S1S2 Lungs: Fair air entry b/l, mild crackles at right lung base Abdomen: Soft, ND, NT, +BSx4 Extremities: - Edema, - Calf tenderness Assessment and plan: 1. Dyspnea - 2/2 acute hypoxic respiratory failure - likely 2/2 pneumonia (HCAP ) and possibly pneumonitis 2/2 chemotherapy (Keytruda) - Clinically has improvement in her breathing; not at baseline - Requiring supplemental oxygen; will continue to titrate down as saturation improves - Physical with improvement in crackels - Cultures negative ; MRSA screen negative - CTA chest 11/10: negative for pulmonary embolism; pleural effusions, right lobectioms, traction bronchiectasis, possible multifactorial pneumonia - c/w Prednisone 60; s/p Solumedrol; Will discharge home with prolonged taper - c/w Zosyn (Day #4); s/p Vancomycin - Dr. Schaefer and Dr. Larsen on consult; appreciate their input 2. Non-Small Cell Lung Cancer - s/p R lobectomy / chemotherapy / radiation (2001) - Recurrence 07/2016 (restarted chemotherapy; s/p Keytruda 11/09/16, next session 3 weeks) - Dr. Larsen on consult 3. STEMI s/p stent - c/w Pravastatin, ASA and Effient 4. DLP - c/w Pravastatin 5. Normocytic Anemia - Hg stable - Continue to follow 6. Thrombocytosis - likely reactive - will monitor for now 7. RA - on Methotrexate as an outpatient 8. Asthma - c/w Budesonide and Levalbuterol PRN 9. Anxiety / Depression - c/w Bupropion, Fluoxetine, Lorazepam PRN 10. GI prophylaxis - c/w Omeprazole 11. DVT prophylaxis - c/w Heparin VS,Fishbone, I+O VS, Fishbone, I+O Laboratory Tests 11/15/16 05:21 Red Blood Count 3.45 L, Mean Corpuscular Volume 90.8, Mean Corpuscular Hemoglobin 28.7, Mean Corpuscular Hemoglobin Concent 31.6 L, Red Cell Distribution Width 15.7 H, Neutrophils (%) (Auto) 93.8 H, Lymphocytes (%) (Auto ) 3.2 L, Monocytes (%) (Auto) 2.3, Eosinophils (%) (Auto) 0.3, Basophils (%) ( Auto) 0.0, Neutrophils # (Auto) 7.3, Lymphocytes # (Auto) 0.3 L, Monocytes # ( Auto) 0.2, Eosinophils # (Auto) 0.0, Basophils # (Auto) 0.0, Calcium Level 9.0 Vital Signs Date Time Temp Pulse Resp B/P (MAP) Pulse Ox O2 Delivery O2 Flow Rate FiO2 11/15/16 07:49 Nasal Cannula 20.0 61 11/15/16 07:30 97.3 96 22 119/59 (39) 97 I&O- Last 24 Hours up to 6 AM 11/15/16 06:00 Intake Total 1280 ml Output Total 1075 ml Balance 205 ml RADU TYLER MD Nov 15, 2016 13:08
--- NOTE | 2016-11-15 17:15 | IPN ---
DATE: 11/14/2016 SUBJECTIVE AND CLINICAL IMPROVEMENT TODAY: Improved O2 saturations 95 to 97%, Urvashi walked today to the bathroom, some exertional dyspnea and anxiety, but overall feels she is improving and by her numbers is. I agree with Dr. Schaefer's assessment as well. 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 Likely multifactorial including possible underlying contribution from methotrexate pneumonitis, pneumonia, and acute inflammatory reaction to pembrolizumab. Stabilizing on high-dose steroids and supplemental oxygen. PLAN: 1. Continue high-dose steroids. 2. Continue antibiotics. 3. I will continue following intermittently and have confirmed Urvashi, I can serve as her local oncologist. I also can be in touch with her [facility] oncologist as she needs. For the present no thought of additional chemotherapy or immunotherapy. Standard pembrolizumab cycle is 21 days, therefore, for 3 weeks dating from November 09 we would typically not give another dose of chemotherapy or immunotherapy unless the patient were rapidly decompensating from cancer progression. MTDD
[2016-11-15] MEDS: PRAVASTATIN 20 MG TAB PO SCH (20:08)
[2016-11-15] MEDS: METAXALONE 800 MG TABLET PO SCH (20:08)
[2016-11-15] MEDS: LORazepam 0.5 MG TAB PO SCH (20:09)
[2016-11-16] VITALS (8 sets, daily range): BP systolic 75–101; BP diastolic 42–55
[2016-11-16] MEDS: LEVALBUTEROL 1.25 MG/0.5 ML CONCENTRATE NEB NEB SCH ×4 (02:05→20:00)
[2016-11-16] MEDS: PIPERACILLIN/TAZOBACTAM SOD 4.5 GM in D5W MINI-BAG PLUS 50 ML IV SCH ×4 (04:00→21:36)
[2016-11-16] MEDS: BENZONATATE 100 MG CAP PO SCH ×3 (05:30→21:37)
[2016-11-16] MEDS: SLF 3 ML SYR IV SCH ×3 (05:31→21:37)
[2016-11-16] MEDS: HEPARIN SOD (PORCINE) 5000 UNITS/ML VIAL SC SCH ×3 (05:31→21:31)
[2016-11-16 06:12] LABS: BASO % 0.1 % (0.0-1.0); EOS # 0.2 K/mm3 (0.0-0.50); EOS % 2.2 % (0.0-3.0); LARGE UNSTAINED CELL # 0.1 K/mm3 (0.0-0.4); LARGE UNSTAINED CELL % 0.7 % (0.0-4.0); LYMPH % 8.9 % (24.0-44.0); MEAN CORPUSCULAR HEMOGLOBIN 29.4 pg (27.0-33.0); MEAN CORPUSCULAR HGB CONC 32.3 g/dl (32.0-36.5); MONO # 0.4 K/mm3 (0.0-0.8); MONO % 4.3 % (0.0-5.0); NEUTROPHILS # 8.5 K/mm3 (1.8-7.7); NEUTROPHILS % 83.6 % (36.0-66.0); PLATELET COUNT, AUTOMATED 576 k/mm3 (150-450); RED CELL DISTRIBUTION WIDTH 15.9 % (11.5-14.5); WHITE BLOOD COUNT 10.2 K/mm3 (4.0-10.0)
[2016-11-16 06:19] LABS: ANION GAP 9 MEQ/L (8-16); BLOOD UREA NITROGEN 33 MG/DL (7-18); CALCIUM LEVEL 8.8 MG/DL (8.5-10.1); CARBON DIOXIDE LEVEL 31 MEQ/L (21-32); CHLORIDE LEVEL 102 MEQ/L (98-107); CREATININE FOR GFR 0.89 MG/DL (0.55-1.02); GLOMERULAR FILTRATION RATE > 60.0 (>51); GLUCOSE, FASTING 89 MG/DL (70-105); POTASSIUM SERUM 3.2 MEQ/L (3.5-5.1); SODIUM LEVEL 142 MEQ/L (136-145)
[2016-11-16] MEDS ORDERED: POTASSIUM CHLORIDE 10 MEQ SR TABLET PO ONE (07:30)
[2016-11-16] MEDS: SYMBICORT 160/4.5MCG INHALER 6GM INH SCH ×2 (07:59→20:31)
[2016-11-16] MEDS ORDERED: FUROSEMIDE 40 MG/4 ML VIAL (J1940) IV SCH (09:00)
[2016-11-16] MEDS: CALCIUM CARBONATE 500 MG CHEW U/D PO SCH (10:34)
[2016-11-16] MEDS: OMEPRAZOLE 20 MG CAP PO SCH (10:34)
[2016-11-16] MEDS: predniSONE 20 MG TAB PO SCH (10:34)
[2016-11-16] MEDS: FLUoxetine 20 MG CAP PO SCH (10:34)
[2016-11-16] MEDS: CYANOCOBALAMIN 500 MCG TAB PO SCH (10:35)
[2016-11-16] MEDS: ASCORBIC ACID 500 MG TAB PO SCH (10:35)
[2016-11-16] MEDS: LACTOBACILLUS ACIDOPHILUS CAP (BACID) PO SCH ×2 (10:35→17:32)
[2016-11-16] MEDS: VITAMIN D 1,000 INTERNATIONAL UNITS TABLET PO SCH (10:35)
[2016-11-16] MEDS: buPROPion **XL** TABLET 150MG (WELLBUTRIN XL) PO SCH (10:35)
--- NOTE | 2016-11-16 14:27 | IPNPDOC ---
Text Note Date of Service The patient was seen on 11/16/16. NOTE Subjective: Patient is 61 year female with a PMHx of NSCLA s/p R lobectomy / chemotherapy / radiation (2001), with recent recurrence 07/2016 (restarted chemotherapy), STEMI s/p stent, DLP, Anemia, RA, Asthma, Anxiety / Depression who presented to the ER with complaints of SOB and fever after she recently completed chemotherapy in [place]. She was admitted to PCU for pneumonia and had consultation with Oncology (Dr. Larsen) and Pulmonary (Dr. Schaefer). She was treated for HCAP and possible pneumonitis 2/2 chemotherapy. Patient was seen and examined at the bedside. She has been working with physical therapy in the room, limited distance because of her high flow oxygen constraint. She reports her SOB and cough have continued to improve. Objective: Vitals (See below) General: Lying in bed, no acute distress, comfortable, AAOx3 HEENT: NC, AT CVS: RRR, +S1S2 Lungs: Fair air entry b/l, no appreciable crackles Abdomen: Soft, ND, NT, +BSx4 Extremities: - Edema, - Calf tenderness Assessment and plan: 1. Dyspnea - 2/2 acute hypoxic respiratory failure - likely 2/2 pneumonia (HCAP ) and possibly pneumonitis 2/2 chemotherapy (Keytruda); less likely 2/2 fluid overload - Clinically has improvement in her breathing; not at baseline - Requiring supplemental oxygen; will continue to titrate down as saturation improves - Physical with improvement in crackles - Cultures negative ; MRSA screen negative - CTA chest 11/10: negative for pulmonary embolism; pleural effusions, right lobectomy, traction bronchiectasis, possible multifactorial pneumonia - c/w Prednisone 60; s/p Solumedrol; Will taper steroids to 40 on 11/17 - c/w Furosemide 40 QD; s/p BID - c/w Zosyn (Day #5); s/p Vancomycin - Dr. Schaefer and Dr. Larsen on consult; appreciate their input 2. Non-Small Cell Lung Cancer - s/p R lobectomy / chemotherapy / radiation (2001) - Recurrence 07/2016 (restarted chemotherapy; s/p Kaytruda 11/09/16, next session 3 weeks) - Dr. Larsen on consult 3. STEMI s/p stent - c/w Pravastatin, ASA and Effient 4. DLP - c/w Pravastatin 5. Normocytic Anemia - Hg stable - Continue to follow 6. Thrombocytosis - likely reactive - will monitor for now 7. RA - on Methotrexate as an outpatient 8. Asthma - c/w Budesonide and Levalbuterol PRN 9. Anxiety / Depression - c/w Bupropion, Fluoxetine, Lorazepam PRN 10. GI prophylaxis - c/w Omeprazole 11. DVT prophylaxis - c/w Heparin Disposition: - Plan on continuing physical therapy - Titrate off oxygen VS,Fishbone, I+O VS, Fishbone, I+O Laboratory Tests 11/16/16 05:21 Red Blood Count 3.57 L, Mean Corpuscular Volume 91.0, Mean Corpuscular Hemoglobin 29.4, Mean Corpuscular Hemoglobin Concent 32.3, Red Cell Distribution Width 15.9 H, Neutrophils (%) (Auto) 83.6 H, Lymphocytes (%) (Auto ) 8.9 L, Monocytes (%) (Auto) 4.3, Eosinophils (%) (Auto) 2.2, Basophils (%) ( Auto) 0.1, Neutrophils # (Auto) 8.5 H, Lymphocytes # (Auto) 1.0 L, Monocytes # ( Auto) 0.4, Eosinophils # (Auto) 0.2, Basophils # (Auto) 0.0, Calcium Level 8.8 Vital Signs Date Time Temp Pulse Resp B/P (MAP) Pulse Ox O2 Delivery O2 Flow Rate FiO2 11/16/16 12:00 97.0 98 22 93/49 (64) 100 Comfort Flow 18.0 11/16/16 08:27 48 I&O- Last 24 Hours up to 6 AM 11/16/16 06:00 Intake Total 1140 ml Output Total 925 ml Balance 215 ml ARDU TYLER MD Nov 16, 2016 14:27
[2016-11-16] MEDS: LORazepam 0.5 MG TAB PO SCH (21:30)
[2016-11-16] MEDS: PRAVASTATIN 20 MG TAB PO SCH (21:30)
[2016-11-16] MEDS: METAXALONE 800 MG TABLET PO SCH (21:36)
[2016-11-17] MEDS: LEVALBUTEROL 1.25 MG/0.5 ML CONCENTRATE NEB NEB SCH ×4 (01:31→20:00)
[2016-11-17] MEDS: PIPERACILLIN/TAZOBACTAM SOD 4.5 GM in D5W MINI-BAG PLUS 50 ML IV SCH ×4 (03:25→22:07)
[2016-11-17 04:00] VITALS: BP 99/54
[2016-11-17] MEDS: BENZONATATE 100 MG CAP PO SCH ×3 (05:20→22:04)
[2016-11-17] MEDS: HEPARIN SOD (PORCINE) 5000 UNITS/ML VIAL SC SCH ×3 (05:21→22:06)
[2016-11-17] MEDS: SLF 3 ML SYR IV SCH ×3 (05:21→22:07)
[2016-11-17 05:41] LABS: BASO % 0.2 % (0.0-1.0); EOS # 0.2 K/mm3 (0.0-0.50); LARGE UNSTAINED CELL # 0.1 K/mm3 (0.0-0.4); LARGE UNSTAINED CELL % 0.9 % (0.0-4.0); LYMPH # 0.9 K/mm3 (1.5-4.5); LYMPH % 8.4 % (24.0-44.0); MEAN CORPUSCULAR HEMOGLOBIN 28.9 pg (27.0-33.0); MEAN CORPUSCULAR HGB CONC 31.6 g/dl (32.0-36.5); MEAN CORPUSCULAR VOLUME 91.5 fl (80.0-96.0); MONO # 0.6 K/mm3 (0.0-0.8); MONO % 5.8 % (0.0-5.0); NEUTROPHILS # 8.3 K/mm3 (1.8-7.7); NEUTROPHILS % 82.6 % (36.0-66.0); PLATELET COUNT, AUTOMATED 539 k/mm3 (150-450); RED CELL DISTRIBUTION WIDTH 16.1 % (11.5-14.5)
[2016-11-17 05:51] LABS: ANION GAP 8 MEQ/L (8-16); BLOOD UREA NITROGEN 32 MG/DL (7-18); CALCIUM LEVEL 8.3 MG/DL (8.5-10.1); CARBON DIOXIDE LEVEL 31 MEQ/L (21-32); CHLORIDE LEVEL 104 MEQ/L (98-107); CREATININE FOR GFR 0.79 MG/DL (0.55-1.02); GLOMERULAR FILTRATION RATE > 60.0 (>51); GLUCOSE, FASTING 80 MG/DL (70-105); POTASSIUM SERUM 3.5 MEQ/L (3.5-5.1); SODIUM LEVEL 143 MEQ/L (136-145)
[2016-11-17] MEDS: SYMBICORT 160/4.5MCG INHALER 6GM INH SCH ×2 (07:27→20:30)
[2016-11-17 08:00] VITALS: BP 94/49
[2016-11-17] MEDS ORDERED: predniSONE 20 MG TAB PO SCH (09:00)
[2016-11-17] MEDS: LACTOBACILLUS ACIDOPHILUS CAP (BACID) PO SCH ×2 (09:31→17:28)
[2016-11-17] MEDS: FLUoxetine 20 MG CAP PO SCH (09:32)
[2016-11-17] MEDS: buPROPion **XL** TABLET 150MG (WELLBUTRIN XL) PO SCH (09:32)
[2016-11-17] MEDS: VITAMIN D 1,000 INTERNATIONAL UNITS TABLET PO SCH (09:32)
[2016-11-17] MEDS: CALCIUM CARBONATE 500 MG CHEW U/D PO SCH (09:32)
[2016-11-17] MEDS: FOLIC ACID 1 MG TAB PO SCH (09:34)
[2016-11-17] MEDS: CYANOCOBALAMIN 500 MCG TAB PO SCH (09:34)
[2016-11-17] MEDS: FUROSEMIDE 40 MG TAB PO SCH (09:34)
[2016-11-17] MEDS: OMEPRAZOLE 20 MG CAP PO SCH (09:34)
[2016-11-17] MEDS: predniSONE 20 MG TAB PO SCH (09:34)
[2016-11-17] MEDS: ASCORBIC ACID 500 MG TAB PO SCH (09:34)
[2016-11-17 12:00] VITALS: BP 95/45
--- NOTE | 2016-11-17 14:25 | IPNPDOC ---
Text Note Date of Service The patient was seen on 11/17/16. NOTE Subjective: Patient is 61 year female with a PMHx of NSCLA s/p R lobectomy / chemotherapy / radiation (2001), with recent recurrence 07/2016 (restarted chemotherapy), STEMI s/p stent, DLP, Anemia, RA, Asthma, Anxiety / Depression who presented to the ER with complaints of SOB and fever after she recently completed chemotherapy in [place]. She was admitted to PCU for pneumonia and had consultation with Oncology (Dr. Larsen) and Pulmonary (Dr. Schaefer). She was treated for HCAP and possible pneumonitis 2/2 chemotherapy. Patient was seen and examined at the bedside. She notes a significant improvement in her breathing. She has been taken off high flow oxygen and is currently on nasal cannula oxygen only at this time. Objective: Vitals (See below) General: Lying in bed, no acute distress, comfortable, AAOx3 HEENT: NC, AT CVS: RRR, +S1S2 Lungs: Fair air entry b/l, no appreciable crackles Abdomen: Soft, ND, NT, +BSx4 Extremities: - Edema, - Calf tenderness Assessment and plan: 1. Dyspnea - 2/2 acute hypoxic respiratory failure - likely 2/2 pneumonia (HCAP ) and possibly pneumonitis 2/2 chemotherapy (Kaytruda); less likely 2/2 fluid overload 2/2 acute diastolic CHF - Clinically has improvement in her breathing; not at baseline - Requiring supplemental oxygen; shown improvement by transitioning to nasal cannula - Physical without any crackles on exam - Cultures negative ; MRSA screen negative - CTA chest 11/10: negative for pulmonary embolism; pleural effusions, right lobectomy, traction bronchiectasis, possible multifactorial pneumonia - ECHO 11/12: EF preserved, Stage 1 DD, mild Pulm HTN, Trace pericardial effusion / no tamponade - Decreased prednisone to 40 today; s/p Solumedrol; will continue to taper steroids - Will switch to PO Furosemide 40 QD from 40 IV QD; s/p BID - c/w Zosyn (Day #6); s/p Vancomycin - Dr. Schaefer and Dr. Larsen on consult; appreciate their input 2. Non-Small Cell Lung Cancer - s/p R lobectomy / chemotherapy / radiation (2001) - Recurrence 07/2016 (restarted chemotherapy; s/p Kaytruda 11/09/16, next session 3 weeks) - Dr. Larsen on consult 3. STEMI s/p stent - c/w Pravastatin, ASA and Effient 4. DLP - c/w Pravastatin 5. Normocytic Anemia - Hg stable - Continue to follow 6. Thrombocytosis - likely reactive - will monitor for now 7. RA - on Methotrexate as an outpatient 8. Asthma - c/w Budesonide and Levalbuterol PRN 9. Anxiety / Depression - c/w Bupropion, Fluoxetine, Lorazepam PRN 10. GI prophylaxis - c/w Omeprazole 11. DVT prophylaxis - c/w Heparin Disposition: - Continue to titrate off oxygen - Plan for discharge home based on PT recommendations VSJeanette, I+O VSJeanette, I+O Laboratory Tests 11/17/16 05:07 Red Blood Count 3.44 L, Mean Corpuscular Volume 91.5, Mean Corpuscular Hemoglobin 28.9, Mean Corpuscular Hemoglobin Concent 31.6 L, Red Cell Distribution Width 16.1 H, Neutrophils (%) (Auto) 82.6 H, Lymphocytes (%) (Auto ) 8.4 L, Monocytes (%) (Auto) 5.8 H, Eosinophils (%) (Auto) 2.0, Basophils (%) ( Auto) 0.2, Neutrophils # (Auto) 8.3 H, Lymphocytes # (Auto) 0.9 L, Monocytes # ( Auto) 0.6, Eosinophils # (Auto) 0.2, Basophils # (Auto) 0.0, Calcium Level 8.3 L Vital Signs Date Time Temp Pulse Resp B/P (MAP) Pulse Ox O2 Delivery O2 Flow Rate FiO2 11/17/16 12:16 Nasal Cannula 3.0 11/17/16 12:00 96.4 90 20 95/45 (62) 98 11/16/16 08:27 48 I&O- Last 24 Hours up to 6 AM 11/17/16 06:00 Intake Total 1020 ml Output Total 900 ml Balance 120 ml RADU TYLER MD Nov 17, 2016 14:25
[2016-11-17 16:00] VITALS: BP 98/55
[2016-11-17 19:50] VITALS: BP 104/52
[2016-11-17] MEDS: PRAVASTATIN 20 MG TAB PO SCH (22:05)
[2016-11-17] MEDS: METAXALONE 800 MG TABLET PO SCH (22:06)
[2016-11-17] MEDS: LORazepam 0.5 MG TAB PO SCH (22:07)
[2016-11-17 23:40] VITALS: BP 113/49
[2016-11-18] VITALS (7 sets, daily range): BP systolic 90–106; BP diastolic 44–55
[2016-11-18] MEDS: LEVALBUTEROL 1.25 MG/0.5 ML CONCENTRATE NEB NEB SCH ×4 (01:57→19:30)
[2016-11-18] MEDS: PIPERACILLIN/TAZOBACTAM SOD 4.5 GM in D5W MINI-BAG PLUS 50 ML IV SCH ×3 (03:23→15:40)
[2016-11-18] MEDS: SUMATRIPTAN PO PRN (05:05)
[2016-11-18] MEDS: NAPROXEN PO PRN (05:05)
[2016-11-18] MEDS: BENZONATATE 100 MG CAP PO SCH ×3 (05:05→22:24)
[2016-11-18] MEDS: SLF 3 ML SYR IV SCH ×3 (05:06→22:25)
[2016-11-18] MEDS: HEPARIN SOD (PORCINE) 5000 UNITS/ML VIAL SC SCH ×3 (05:06→22:25)
[2016-11-18 05:47] LABS: ANION GAP 10 MEQ/L (8-16); BLOOD UREA NITROGEN 30 MG/DL (7-18); CALCIUM LEVEL 8.4 MG/DL (8.5-10.1); CARBON DIOXIDE LEVEL 29 MEQ/L (21-32); CHLORIDE LEVEL 104 MEQ/L (98-107); CREATININE FOR GFR 0.76 MG/DL (0.55-1.02); GLOMERULAR FILTRATION RATE > 60.0 (>51); GLUCOSE, FASTING 84 MG/DL (70-105); POTASSIUM SERUM 3.1 MEQ/L (3.5-5.1); SODIUM LEVEL 143 MEQ/L (136-145)
[2016-11-18 05:52] LABS: BASO % 0.1 % (0.0-1.0); EOS # 0.2 K/mm3 (0.0-0.50); EOS % 1.3 % (0.0-3.0); LARGE UNSTAINED CELL # 0.1 K/mm3 (0.0-0.4); LARGE UNSTAINED CELL % 0.8 % (0.0-4.0); LYMPH # 0.9 K/mm3 (1.5-4.5); LYMPH % 4.6 % (24.0-44.0); MEAN CORPUSCULAR HEMOGLOBIN 29.2 pg (27.0-33.0); MEAN CORPUSCULAR HGB CONC 32.1 g/dl (32.0-36.5); MONO # 0.7 K/mm3 (0.0-0.8); MONO % 3.9 % (0.0-5.0); NEUTROPHILS % 89.2 % (36.0-66.0); PLATELET COUNT, AUTOMATED 638 k/mm3 (150-450); RED CELL DISTRIBUTION WIDTH 16.1 % (11.5-14.5); WHITE BLOOD COUNT 16.8 K/mm3 (4.0-10.0)
[2016-11-18] MEDS ORDERED: POTASSIUM CHLORIDE 10 MEQ SR TABLET PO ONE (07:30)
[2016-11-18] MEDS: SYMBICORT 160/4.5MCG INHALER 6GM INH SCH ×2 (07:36→19:30)
[2016-11-18] MEDS: CYANOCOBALAMIN 500 MCG TAB PO SCH (08:24)
[2016-11-18] MEDS: FLUoxetine 20 MG CAP PO SCH (08:29)
[2016-11-18] MEDS: OMEPRAZOLE 20 MG CAP PO SCH (08:29)
[2016-11-18] MEDS: buPROPion **XL** TABLET 150MG (WELLBUTRIN XL) PO SCH (08:30)
[2016-11-18] MEDS: predniSONE 20 MG TAB PO SCH (08:30)
[2016-11-18] MEDS: VITAMIN D 1,000 INTERNATIONAL UNITS TABLET PO SCH (08:31)
[2016-11-18] MEDS: CALCIUM CARBONATE 500 MG CHEW U/D PO SCH (08:31)
[2016-11-18] MEDS: LACTOBACILLUS ACIDOPHILUS CAP (BACID) PO SCH ×2 (08:31→17:07)
[2016-11-18] MEDS: FUROSEMIDE 40 MG TAB PO SCH (08:31)
[2016-11-18] MEDS: ASCORBIC ACID 500 MG TAB PO SCH (08:31)
[2016-11-18] MEDS: LORazepam 0.5 MG TAB PO PRN (10:22)
[2016-11-18] MEDS: ASPIRIN 81 MG ENTERIC TAB PO SCH (10:23)
--- NOTE | 2016-11-18 10:42 | REP ---
Portable chest x-ray: Sitting AP view. History: Question infiltrate. History of lung carcinoma. Comparison study November 14, 2016. Comparison CT study November 12, 2016. Findings: EKG monitoring electrodes and oxygen delivery tubing are seen. The right hilus is retracted upward and there is perihilar fibrotic density again noted. There are clips in the right hilus post right thoracotomy. Interstitial markings are diffusely increased in the left upper lobe distribution as seen on recent chest CT. The left hemidiaphragm is not well defined. This may reflect some left pleural fluid and is a new finding. The CT does show bilateral pleural effusion. No definite new infiltrate is seen. There is haziness in the right lateral pleural angle. Impression: Persistent upper lobe distribution interstitial infiltrate pattern. Postoperative changes on the right with upward retraction and fibrosis in the right hilar region. Small bilateral pleural effusions suspected. No definite new infiltrate. Signed by Luis Orosco MD 11/18/2016 11:08 A
[2016-11-18 10:59] LABS: ALBUMIN 2.4 GM/DL (3.2-5.2); ALBUMIN/GLOBULIN RATIO 0.73 (1.00-1.93); ALKALINE PHOSPHATASE 87 U/L (45-117); ALT/SGPT 16 U/L (12-78); ANION GAP 4 MEQ/L (8-16); AST/SGOT 10 U/L (15-37); BILIRUBIN,TOTAL 0.5 MG/DL (0.2-1.0); BLOOD UREA NITROGEN 27 MG/DL (7-18); CALCIUM LEVEL 8.9 MG/DL (8.5-10.1); CARBON DIOXIDE LEVEL 30 MEQ/L (21-32); CHLORIDE LEVEL 113 MEQ/L (98-107); CREATININE FOR GFR 0.92 MG/DL (0.55-1.02); GLOMERULAR FILTRATION RATE > 60.0 (>51); GLUCOSE, FASTING 108 MG/DL (70-105); MAGNESIUM LEVEL 1.8 MG/DL (1.8-2.4); POTASSIUM SERUM 3.9 MEQ/L (3.5-5.1); SODIUM LEVEL 147 MEQ/L (136-145); TOTAL PROTEIN 5.7 GM/DL (6.4-8.2)
[2016-11-18] MEDS ORDERED: GI COCKTAIL 50ML BTL(HYOSCYAMINE/MAALOX/LIDOCAINE VISCOUS)(1:3:1) PO ONE (11:30)
--- NOTE | 2016-11-18 12:10 | ECGEPIP ---
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
[2016-11-18 13:22] LABS: CALCIUM OXALATE CRYSTALS SMALL
--- NOTE | 2016-11-18 13:27 | IPNPDOC ---
Text Note Date of Service The patient was seen on 11/18/16. NOTE Subjective: Patient is 61 year female with a PMHx of NSCLA s/p R lobectomy / chemotherapy / radiation (2001), with recent recurrence 07/2016 (restarted chemotherapy), STEMI s/p stent, DLP, Anemia, RA, Asthma, Anxiety / Depression who presented to the ER with complaints of SOB and fever after she recently completed chemotherapy in [place]. She was admitted to PCU for pneumonia and had consultation with Oncology (Dr. Larsen) and Pulmonary (Dr. Schaefer). She was treated for HCAP and possible pneumonitis 2/2 chemotherapy. Patient was seen and examined at the bedside. She was sitting up in bed, appeared to have some shortness of breath. She noted that her cough was a little worse than before. No reported fevers overnight. Denies any dysuria or chills. She has noted some burning sub-sternal chest pain, non-radiating, constant, 7/10, associated with sweating, but no nausea, palpitations or dizziness. Objective: Vitals (See below) General: Lying in bed, no acute distress, comfortable, AAOx3 HEENT: NC, AT CVS: RRR, +S1S2 Lungs: Fair air entry b/l, no appreciable crackles Abdomen: Soft, ND, NT, +BSx4 Extremities: - Edema, - Calf tenderness Assessment and plan: 1. Dyspnea - 2/2 acute hypoxic respiratory failure - likely 2/2 pneumonia (HCAP ) and possibly pneumonitis 2/2 chemotherapy (Kaytruda); less likely 2/2 fluid overload 2/2 acute diastolic CHF - Clinically has improvement in her breathing and her requirement for supplemental oxygen continues to decline - Saturating at 95% on nasal cannula of 2 liters - Physical without any crackles on exam; did reveal some wheezing - Cultures negative ; MRSA screen negative - Louie in leukocytosis this morning to 16 - CTA chest 11/10: negative for pulmonary embolism; pleural effusions, right lobectomy, traction bronchiectasis, possible multifactorial pneumonia - ECHO 11/12: EF preserved, Stage 1 DD, mild Pulm HTN, Trace pericardial effusion / no tamponade - c/w Prednisone 40 daily; s/p Solumedrol - s/p Furosemide - c/w Zosyn (Day #7); s/p Vancomycin - Will consider evaluating lung field with CTA chest (r/o PE and evaluation for recurrent pneumonia) - Dr. Schaefer and Dr. Larsen on consult; appreciate their input Chest pain - possibly 2/2 GI etiology, possibly 2/2 cardiac etiology - Reported to have atypical chest pain, associated with sweating - Physical un-revealing - EKG 11/18: sinus tachycardia, no ST segment changes or T-wave inversions - Troponin first set negative; will follow 2 more trends - Changed PPI to IV (omeprazole to pantoprazole) - s/p GI Cocktail x 1 dose 2. Non-Small Cell Lung Cancer - s/p R lobectomy / chemotherapy / radiation (2001) - Recurrence 07/2016 (restarted chemotherapy; s/p Kaytruda 11/09/16, next session 3 weeks) - Dr. Larsen on consult 3. STEMI s/p stent - c/w Pravastatin, ASA and Effient 4. DLP - c/w Pravastatin 5. Normocytic Anemia - Hg stable - Continue to follow 6. Thrombocytosis - likely reactive - will monitor for now 7. RA - on Methotrexate as an outpatient 8. Asthma - c/w Budesonide and Levalbuterol PRN 9. Anxiety / Depression - c/w Bupropion, Fluoxetine, Lorazepam PRN 10. GI prophylaxis - c/w Omeprazole 11. DVT prophylaxis - c/w Heparin Disposition: - Continue to titrate off oxygen - Evaluation of Leukocytosis; f/u UA, UCx, Blood Cx, Portable CXR - Plan for discharge home based on PT recommendations VS,Jeanette, I+O VS, Jeanette, I+O Laboratory Tests 11/18/16 05:01 Red Blood Count 3.41 L, Mean Corpuscular Volume 91.0, Mean Corpuscular Hemoglobin 29.2, Mean Corpuscular Hemoglobin Concent 32.1, Red Cell Distribution Width 16.1 H, Neutrophils (%) (Auto) 89.2 H, Lymphocytes (%) (Auto ) 4.6 L, Monocytes (%) (Auto) 3.9, Eosinophils (%) (Auto) 1.3, Basophils (%) ( Auto) 0.1, Neutrophils # (Auto) 15.0 H, Lymphocytes # (Auto) 0.9 L, Monocytes # (Auto) 0.7, Eosinophils # (Auto) 0.2, Basophils # (Auto) 0.0, Calcium Level 8.4 L 11/18/16 10:22 Calcium Level 8.9, Aspartate Amino Transf (AST/SGOT) 10 L, Alanine Aminotransferase (ALT/SGPT) 16, Alkaline Phosphatase 87, Total Bilirubin 0.5, Total Protein 5.7 L, Albumin 2.4 L Vital Signs Date Time Temp Pulse Resp B/P (MAP) Pulse Ox O2 Delivery O2 Flow Rate FiO2 11/18/16 12:00 97.5 97 18 92/44 (60) 94 Nasal Cannula 2.0 11/16/16 08:27 48 I&O- Last 24 Hours up to 6 AM 11/18/16 06:00 Intake Total 2140 ml Output Total 975 ml Balance 1165 ml RADU TYLER MD Nov 18, 2016 13:27
[2016-11-18] MEDS ORDERED: SODIUM CHLORIDE 0.9% 1000 ML IV ONE ×2 (13:30→18:00)
[2016-11-18] MEDS ORDERED: ISOVUE-370 76% 100ML VIAL (Q9967) As Ordered ONE (16:41)
[2016-11-18] MEDS: PRAVASTATIN 20 MG TAB PO SCH (22:24)
[2016-11-18] MEDS: LORazepam 0.5 MG TAB PO SCH (22:25)
[2016-11-18] MEDS: METAXALONE 800 MG TABLET PO SCH (22:25)
[2016-11-19] MEDS: LEVALBUTEROL 1.25 MG/0.5 ML CONCENTRATE NEB NEB SCH ×4 (01:42→19:39)
[2016-11-19 05:16] VITALS: BP 103/54
[2016-11-19] MEDS: SLF 3 ML SYR IV SCH ×3 (05:33→22:00)
[2016-11-19] MEDS: BENZONATATE 100 MG CAP PO SCH ×3 (05:33→22:05)
[2016-11-19 05:49] LABS: BASO % 0.1 % (0.0-1.0); EOS # 0.2 K/mm3 (0.0-0.50); EOS % 1.5 % (0.0-3.0); LARGE UNSTAINED CELL # 0.1 K/mm3 (0.0-0.4); LARGE UNSTAINED CELL % 0.7 % (0.0-4.0); LYMPH % 7.1 % (24.0-44.0); MEAN CORPUSCULAR HEMOGLOBIN 28.7 pg (27.0-33.0); MEAN CORPUSCULAR HGB CONC 31.3 g/dl (32.0-36.5); MEAN CORPUSCULAR VOLUME 91.9 fl (80.0-96.0); MONO # 0.7 K/mm3 (0.0-0.8); NEUTROPHILS # 11.1 K/mm3 (1.8-7.7); NEUTROPHILS % 85.6 % (36.0-66.0); PLATELET COUNT, AUTOMATED 555 k/mm3 (150-450); RED CELL DISTRIBUTION WIDTH 16.4 % (11.5-14.5)
[2016-11-19 06:26] LABS: ANION GAP 9 MEQ/L (8-16); BLOOD UREA NITROGEN 23 MG/DL (7-18); CALCIUM LEVEL 8.6 MG/DL (8.5-10.1); CARBON DIOXIDE LEVEL 26 MEQ/L (21-32); CHLORIDE LEVEL 112 MEQ/L (98-107); CREATININE FOR GFR 0.58 MG/DL (0.55-1.02); GLOMERULAR FILTRATION RATE > 60.0 (>51); GLUCOSE, FASTING 72 MG/DL (70-105); POTASSIUM SERUM 3.6 MEQ/L (3.5-5.1); SODIUM LEVEL 147 MEQ/L (136-145)
[2016-11-19] MEDS: SYMBICORT 160/4.5MCG INHALER 6GM INH SCH ×2 (07:02→19:39)
--- NOTE | 2016-11-19 07:27 | REP ---
CT pulmonary angiogram: With IV contrast. History: Question pulmonary embolism Comparison studies: Comparison is made with today's chest x-ray. Comparison chest CT study November 09, 2016. Contrast dose: 75 cc's of Isovue [address] technique: Helical scanning is acquired and overlapping 1.5 mm and contiguous 3 mm axial images are reformatted. In addition, a 3-D work station is deployed to generate thick slab maximum intensity projection images in sagittal and coronal imaging projections. CT pulmonary angiographic findings: There is good opacification of the pulmonary arterial tree and there is no CT evidence of pulmonary embolism. Thoracic aorta shows no evidence of aneurysm or dissection. No hilar or mediastinal mass or adenopathy is seen. The patient is status post right upper lobectomy. There are post thoracotomy and fibrotic changes in the right chest. Bronchiectasis and partial collapse is seen in the right apex. This is unchanged. There is a left pleural effusion posterolaterally and inferiorly in the left lung. This may be loculated. No pericardial effusion is seen. Amount of left pleural fluid is similar to that seen on the November 09, 2016 study. Visualized upper abdominal structures show no new finding. Adrenal thickening is seen bilaterally. Previously noted ground-glass opacities have improved. Impression: 1. No CT evidence of pulmonary embolus. 2. Left pleural effusion essentially unchanged. 3. Post thoracotomy changes on the right with bronchiectasis in the right apex, unchanged. 4. No new infiltrate. Ground-glass opacities noted previously in the left upper lobe have improved since November 09, 2016. Signed by Luis Orosco MD 11/19/2016 08:47 A
[2016-11-19 08:00] VITALS: BP 102/50
[2016-11-19] MEDS ORDERED: PANTOPRAZOLE 40MG INJ (PROTONIX) (C9113) IV SCH (09:00)
[2016-11-19] MEDS: buPROPion **XL** TABLET 150MG (WELLBUTRIN XL) PO SCH (09:05)
[2016-11-19] MEDS: CYANOCOBALAMIN 500 MCG TAB PO SCH (09:05)
[2016-11-19] MEDS: POTASSIUM CHLORIDE 10 MEQ SR TABLET PO SCH (09:05)
[2016-11-19] MEDS: ASCORBIC ACID 500 MG TAB PO SCH (09:05)
[2016-11-19] MEDS: PRASUGREL PO SCH (09:05)
[2016-11-19] MEDS: FLUoxetine 20 MG CAP PO SCH (09:06)
[2016-11-19] MEDS: predniSONE 20 MG TAB PO SCH (09:06)
[2016-11-19] MEDS: ASPIRIN 81 MG ENTERIC TAB PO SCH (09:06)
[2016-11-19] MEDS: VITAMIN D 1,000 INTERNATIONAL UNITS TABLET PO SCH (09:06)
[2016-11-19] MEDS: CALCIUM CARBONATE 500 MG CHEW U/D PO SCH (09:06)
[2016-11-19] MEDS: LACTOBACILLUS ACIDOPHILUS CAP (BACID) PO SCH ×2 (09:06→16:47)
[2016-11-19] MEDS ORDERED: D5W/0.45% SODIUM CHLORIDE 500 ML IV SCH (10:45)
[2016-11-19 12:00] VITALS: BP 98/52
[2016-11-19] MEDS: HEPARIN SOD (PORCINE) 5000 UNITS/ML VIAL SC SCH ×2 (14:00→22:05)
--- NOTE | 2016-11-19 14:03 | IPNPDOC ---
Text Note Date of Service The patient was seen on 11/19/16. NOTE Subjective: Patient is 61 year female with a PMHx of NSCLA s/p R lobectomy / chemotherapy / radiation (2001), with recent recurrence 07/2016 (restarted chemotherapy), STEMI s/p stent, DLP, Anemia, RA, Asthma, Anxiety / Depression who presented to the ER with complaints of SOB and fever after she recently completed chemotherapy in [place]. She was admitted to PCU for pneumonia and had consultation with Oncology (Dr. Larsen) and Pulmonary (Dr. Schaefer). She was treated for HCAP and possible pneumonitis 2/2 chemotherapy. Patient was seen and examined at the bedside. She noted that her breathing has improved, currently on room air. No cough. No chest pain. Advised that we will c /w physical therapy today. Objective: Vitals (See below) General: Lying in bed, no acute distress, comfortable, AAOx3 HEENT: NC, AT CVS: RRR, +S1S2 Lungs: Fair air entry b/l, no appreciable crackles Abdomen: Soft, ND, NT, +BSx4 Extremities: - Edema, - Calf tenderness Assessment and plan: 1. Dyspnea - 2/2 acute hypoxic respiratory failure - likely 2/2 pneumonia (HCAP ) and possibly pneumonitis 2/2 chemotherapy (Kaytruda); less likely 2/2 fluid overload 2/2 acute diastolic CHF - Clinically has improvement in her breathing and at this point is off supplemental oxygen - However, she has been noted to have desaturation with ambulation; may require O2 as outpatient - Physical without any crackles on exam - Cultures negative ; MRSA screen negative - Leukocytosis improving - CTA chest 11/10: negative for pulmonary embolism; pleural effusions, right lobectomy, traction bronchiectasis, possible multifactorial pneumonia - CTA chest 11/18: negative for pulmonary embolism, L pleural effusion unchanged , thoracotomy change on right, with bronchiectasis at R apex, no new infiltrate , improved ground glass infiltrates at L upper lobe - ECHO 11/12: EF preserved, Stage 1 DD, mild pulmonary HTN, Trace pericardial effusion / no tamponade - s/p Furosemide - s/p Zosyn (Completed 7 days); s/p Vancomycin - c/w Prednisone 40 daily; s/p Solumedrol 2. s/p Chest pain - possibly 2/2 GI etiology, possibly 2/2 cardiac etiology - Reported to have atypical chest pain, associated with sweating - Physical un-revealing - EKG 11/18: sinus tachycardia, no ST segment changes or T-wave inversions - Troponin first set negative; will follow 2 more trends - s/p GI Cocktail x 1 dose - Will change PPI back to oral Omeprazole 2. Non-Small Cell Lung Cancer - s/p R lobectomy / chemotherapy / radiation (2001) - Recurrence 07/2016 (restarted chemotherapy; s/p Kaytruda 11/09/16, next session 3 weeks) - Dr. Larsen on consult 3. Hypernatremia - will start D5 1/2 NS for 500 cc 4. STEMI s/p stent - c/w Pravastatin, ASA and Effient 5. DLP - c/w Pravastatin 6. Normocytic Anemia - Hg stable - Continue to follow 7. Thrombocytosis - likely reactive - will monitor for now 8. RA - on Methotrexate as an outpatient 9. Asthma - c/w Budesonide and Levalbuterol PRN 10. Anxiety / Depression - c/w Bupropion, Fluoxetine, Lorazepam PRN 11. GI prophylaxis - c/w Omeprazole 12. DVT prophylaxis - c/w Heparin Disposition: - Will likely discharge home on 11/20; may require oxygen as an outpatient for ambulatory hypoxia - Discharge home with prolonged steroid taper VS,Jeanette, I+O VS, [place], I+O Laboratory Tests 11/19/16 05:30 Red Blood Count 3.13 L, Mean Corpuscular Volume 91.9, Mean Corpuscular Hemoglobin 28.7, Mean Corpuscular Hemoglobin Concent 31.3 L, Red Cell Distribution Width 16.4 H, Neutrophils (%) (Auto) 85.6 H, Lymphocytes (%) (Auto ) 7.1 L, Monocytes (%) (Auto) 5.0, Eosinophils (%) (Auto) 1.5, Basophils (%) ( Auto) 0.1, Neutrophils # (Auto) 11.1 H, Lymphocytes # (Auto) 1.0 L, Monocytes # (Auto) 0.7, Eosinophils # (Auto) 0.2, Basophils # (Auto) 0.0, Calcium Level 8.6 Vital Signs Date Time Temp Pulse Resp B/P (MAP) Pulse Ox O2 Delivery O2 Flow Rate FiO2 8/20/17 12:00 98.2 101 18 98/52 (67) 90 Room Air 11/19/16 05:16 2.0 11/16/16 08:27 48 I&O- Last 24 Hours up to 6 AM 11/19/16 05:59 Intake Total 1370 ml Output Total 1050 ml Balance 320 ml RADU TYLER MD Nov 19, 2016 14:03
[2016-11-19 16:00] VITALS: BP 106/55
--- NOTE | 2016-11-19 19:38 | IPN ---
DATE: 11/17/2016 Medical oncology inpatient followup. Urvashi is doing much better now on 2 liters of oxygen nasal cannula, took a shower, washed her hair, she is seen walking around. Clearly she is responding to steroids and antibiotics. This in many ways confirms that the diagnosis of a multifactorial respiratory distress likely combination infection and pneumonitis. IMPRESSION: Metastatic PD-L1 high adenocarcinoma of the lung with late recurrence involving left pleural based mass, recently emerging bone and skin metastases, as well as adrenal metastasis, status post first treatment with pembrolizumab on 11/09/2016 , with near immediate respiratory decompensation, fever and requiring admission for hypoxia. Recovering on antibiotics and high-dose corticosteroids. CT of the chest showed multifocal ground-glass opacities suggestive but not diagnostic of pneumonitis. Her methotrexate has been stopped. I recommend this be discontinued for now and high-dose steroids be continued. RECOMMENDATIONS: 1. Continue prednisone 50 mg by mouth daily on discharge. 2. Please have the patient followup with me within a few days of discharge. She or hospitalist can contact [phone], our nurse navigator Kanika Lancaster, if there is any difficulty getting her into our office for an appointment. Office number is [phone]. I would like to make sure I see Urvashi early or mid next week to begin titration of her steroids and obtain followup imaging. [facility]
[2016-11-19 20:16] VITALS: BP 106/52
[2016-11-19] MEDS: PRAVASTATIN 20 MG TAB PO SCH (22:04)
[2016-11-19] MEDS: METAXALONE 800 MG TABLET PO SCH (22:06)
[2016-11-19] MEDS: LORazepam 0.5 MG TAB PO SCH (22:06)
[2016-11-20 00:04] VITALS: BP 95/48
[2016-11-20] MEDS: LEVALBUTEROL 1.25 MG/0.5 ML CONCENTRATE NEB NEB SCH ×2 (01:22→07:45)
[2016-11-20 04:53] VITALS: BP 100/51
[2016-11-20] MEDS: BENZONATATE 100 MG CAP PO SCH (05:55)
[2016-11-20] MEDS: HEPARIN SOD (PORCINE) 5000 UNITS/ML VIAL SC SCH (05:56)
[2016-11-20] MEDS: SLF 3 ML SYR IV SCH (05:56)
[2016-11-20 06:47] LABS: BASO % 0.1 % (0.0-1.0); EOS # 0.2 K/mm3 (0.0-0.50); EOS % 1.9 % (0.0-3.0); LARGE UNSTAINED CELL # 0.1 K/mm3 (0.0-0.4); LARGE UNSTAINED CELL % 1.2 % (0.0-4.0); LYMPH # 1.4 K/mm3 (1.5-4.5); LYMPH % 10.2 % (24.0-44.0); MEAN CORPUSCULAR HEMOGLOBIN 29.1 pg (27.0-33.0); MEAN CORPUSCULAR HGB CONC 31.4 g/dl (32.0-36.5); MEAN CORPUSCULAR VOLUME 92.8 fl (80.0-96.0); MONO # 0.7 K/mm3 (0.0-0.8); MONO % 5.7 % (0.0-5.0); NEUTROPHILS # 9.9 K/mm3 (1.8-7.7); NEUTROPHILS % 80.9 % (36.0-66.0); PLATELET COUNT, AUTOMATED 587 k/mm3 (150-450); RED CELL DISTRIBUTION WIDTH 16.9 % (11.5-14.5); WHITE BLOOD COUNT 12.2 K/mm3 (4.0-10.0)
[2016-11-20 07:00] LABS: ALBUMIN 2.1 GM/DL (3.2-5.2); ALKALINE PHOSPHATASE 77 U/L (45-117); ALT/SGPT 22 U/L (12-78); ANION GAP 5 MEQ/L (8-16); AST/SGOT 9 U/L (15-37); BILIRUBIN,TOTAL 0.3 MG/DL (0.2-1.0); BLOOD UREA NITROGEN 17 MG/DL (7-18); CALCIUM LEVEL 8.7 MG/DL (8.5-10.1); CARBON DIOXIDE LEVEL 27 MEQ/L (21-32); CHLORIDE LEVEL 109 MEQ/L (98-107); CREATININE FOR GFR 0.66 MG/DL (0.55-1.02); GLOMERULAR FILTRATION RATE > 60.0 (>51); GLUCOSE, FASTING 77 MG/DL (70-105); MAGNESIUM LEVEL 2.1 MG/DL (1.8-2.4); SODIUM LEVEL 141 MEQ/L (136-145); TOTAL PROTEIN 5.6 GM/DL (6.4-8.2)
[2016-11-20 07:25] VITALS: BP 108/53
[2016-11-20] MEDS: SYMBICORT 160/4.5MCG INHALER 6GM INH SCH (07:45)
[2016-11-20] MEDS: FLUoxetine 20 MG CAP PO SCH (08:49)
[2016-11-20] MEDS: CALCIUM CARBONATE 500 MG CHEW U/D PO SCH (08:49)
[2016-11-20] MEDS: buPROPion **XL** TABLET 150MG (WELLBUTRIN XL) PO SCH (08:49)
[2016-11-20] MEDS: predniSONE 20 MG TAB PO SCH (08:49)
[2016-11-20] MEDS: POTASSIUM CHLORIDE 10 MEQ SR TABLET PO SCH (08:50)
[2016-11-20] MEDS: VITAMIN D 1,000 INTERNATIONAL UNITS TABLET PO SCH (08:50)
[2016-11-20] MEDS: ASCORBIC ACID 500 MG TAB PO SCH (08:50)
[2016-11-20] MEDS: CYANOCOBALAMIN 500 MCG TAB PO SCH (08:51)
[2016-11-20] MEDS: PRASUGREL PO SCH (08:51)
[2016-11-20] MEDS: LACTOBACILLUS ACIDOPHILUS CAP (BACID) PO SCH (08:51)
[2016-11-20] MEDS: ASPIRIN 81 MG ENTERIC TAB PO SCH (08:51)
[2016-11-20] MEDS ORDERED: OMEPRAZOLE 20 MG CAP PO SCH (09:00)
[2016-11-20] MEDS ORDERED: OMEP20CA3 PO (10:10)
[2016-11-20] MEDS ORDERED: BENZ100C5 PO (10:10)
[2016-11-20] MEDS ORDERED: PRED10TA2 PO (10:10)
[2016-11-20 11:03] LABS: BASO % 0.2 % (0.0-1.0); EOS # 0.2 K/mm3 (0.0-0.50); EOS % 1.7 % (0.0-3.0); LARGE UNSTAINED CELL # 0.1 K/mm3 (0.0-0.4); LARGE UNSTAINED CELL % 0.6 % (0.0-4.0); LYMPH # 0.9 K/mm3 (1.5-4.5); LYMPH % 5.5 % (24.0-44.0); MEAN CORPUSCULAR HEMOGLOBIN 29.1 pg (27.0-33.0); MEAN CORPUSCULAR HGB CONC 31.3 g/dl (32.0-36.5); MONO # 0.8 K/mm3 (0.0-0.8); MONO % 5.4 % (0.0-5.0); NEUTROPHILS # 12.6 K/mm3 (1.8-7.7); NEUTROPHILS % 86.6 % (36.0-66.0); PLATELET COUNT, AUTOMATED 664 k/mm3 (150-450); RED CELL DISTRIBUTION WIDTH 16.8 % (11.5-14.5); WHITE BLOOD COUNT 14.6 K/mm3 (4.0-10.0)
[2016-11-20] MEDS ORDERED: LEVA1TAB2 PO (12:06)
[2016-11-20] MEDS: LORazepam 0.5 MG TAB PO PRN (12:18)
--- NOTE | 2016-11-20 20:22 | DSES ---
DATE OF ADMISSION: 11/09/2016 DATE OF DISCHARGE: 11/20/2016 ATTENDING PHYSICIAN: Chip Nino M.D. PRIMARY CARE PHYSICIAN: Lakeshia Hernandez M.D. REFERRING PHYSICIAN: None. CONSULTING PHYSICIAN: Leslie Hathaway M.D., Dr. Schaefer. CONDITION ON DISCHARGE: Stable. FINAL DIAGNOSIS: 1. Dyspnea secondary to acute hypoxic respiratory failure secondary to healthcare associated pneumonia and possibly pneumonitis secondary to chemotherapy, Keytruda, less likely secondary to fluid overload secondary to acute diastolic congestive heart failure (CHF). PROCEDURES: None. HISTORY OF PRESENT ILLNESS: The patient is a 61-year-old female with a past medical history of non-small cell lung cancer, status post right lobectomy, chemotherapy, radiation in 2001 with recent recurrence in 2017, restarted chemotherapy, ST-elevation myocardial infarction (STEMI), status post stent, dyslipidemia, anemia, rheumatoid arthritis and asthma, anxiety depression, who presented to the emergency room (ER) with complaints of shortness of breath and fever after she received chemotherapy in [place]. She was admitted to PCU for pneumonia, had a consultation with oncology, Dr. Leslie Hathaway and pulmonary Dr. Schaefer. She was treated healthcare association pneumonia and possibly pneumonitis secondary to chemotherapy. HOSPITAL COURSE: 1. Dyspnea secondary to acute hypoxic respiratory failure, likely secondary to pneumonia, healthcare association pneumonia and possibly pneumonitis secondary to chemotherapy, Keytruda, less likely secondary to fluid overload secondary to acute diastolic congestive heart failure (CHF). Clinically, had improvement in her breathing throughout the hospital course and has been taken off of supplemental oxygen which has been as high as high flow at 70% FiO2. The patient has still been experiencing desaturation with ambulation and is being sent home with supplemental oxygen. Physical upon discharge revealed no crackles on physical examination. Cultures have remained negative. MRCA screening has been negative. Leukocytosis has remained stable. CT angiogram most recently which was 11/18, was negative for pulmonary embolism. Left pleural effusion was unchanged. Thoracotomy chain on right was noted with bronchiectasis of the right apex. No new infiltrate was noted. Improved ground glass infiltrates in the left upper lobe were noted. Echocardiogram on 11/12 showed an ejection fraction, which was preserved, stage I diastolic dysfunction, mild pulmonary hypertension and trace pericardial effusion without evidence of tamponade. The patient was on furosemide as an inpatient for negative fluid balance. She was not continued upon outpatient. The patient was put on Zosyn for a 7 day course and taken off vancomycin. The patient was also put on a high dose of steroids while she was inpatient and was transitioned to prednisone orally on a prolonged taper as outpatient. Upon discharge, the patient was discontinued with Levaquin for the next seven days and was asked to followup with the primary care provider, oncology and pulmonary within the next 7 days. 2. Status post chest pain, possibly secondary to gastrointestinal (GI) etiology, probably less likely secondary to cardiac etiology. Reported to have atypical chest pain associated with sweating. Described the pain as burning sensation. Physical was unrevealing. Electrocardiogram (EKG) on 11/18 revealed a sinus tachycardia. No ST-segment changes or T wave inversion were noted. Troponins first set was negative and subsequent sets were negative. The patient received a gastrointestinal (GI) cocktail that showed improvement in her symptoms. The patient was put on Protonix IV and was switched to oral dose upon outpatient. 3. Nonsmall cell lung cancer, status post right lobectomy, chemotherapy, radiation in 2001, recurrence in 07/2016 and restarted chemotherapy. Received Keytruda 11/09/2016. Follows with Dr. Leslie Hathaway as an outpatient. 4. Hypernatremia. Has received IV fluid hydration, has resolved. 5. ST-segment elevation myocardial infarction (STEMI), status post stent. Continue with Pravastatin, aspirin and Effient. 6. Dyslipidemia. Continue with Pravastatin. 7. Normocytic anemia. Hemoglobin is stable. Will continue to follow. Repeat hemoglobin this afternoon was normal and the patient was subsequently discharged. 8. Thrombocytosis, likely reactive. Will monitor for now. 9. Rheumatoid arthritis. She is on methotrexate as an outpatient. 10. Asthma. Continue Budesonide and Levalbuterol as needed. 11. Anxiety and depression. Continue bupropion, fluoxetine, lorazepam as needed. 12. Gastrointestinal (GI) prophylaxis. Continue with omeprazole. 13. Deep vein thrombosis (DVT) prophylaxis. She is on heparin. DISCHARGE MEDICATIONS: The patient has been discharged home with the following medication list: - benzonatate 200 mg by mouth every 8 hours - levofloxacin 500 mg by mouth daily take as directed. - omeprazole 40 mg by mouth daily - prednisone 10 mg take as directed. CONTINUED MEDICATIONS INCLUDE: - albuterol 2 puffs inhaled as needed for shortness of breath - albuterol 2.5 mg inhaled four times a day as needed for shortness of breath - ascorbic acid 5 mg by mouth daily - aspirin 81 mg by mouth daily - biotin 10 mg by mouth daily - Symbicort 2 puffs inhaled twice a day - bupropion 300 mg by mouth daily - calcium 600 mg by mouth daily - vitamin D3 2000 units by mouth daily - vitamin B12 500 mcg by mouth daily - fluoxetine 60 mg by mouth daily - folic acid 1 mg by mouth once a week - lorazepam 1 mg by mouth at bedtime (q.h.s.) - methotrexate 50 mg by mouth once a week - oxycodone 5 mg by mouth four times a day as needed - Effient 5 mg by mouth daily - pravastatin 40 mg by mouth at bedtime - Treximet one tablet by mouth as directed as needed for migraines. STOPPED MEDICATIONS INCLUDE: - metaxalone 800 mg one tablet by mouth at bedtime (q.h.s.) - omeprazole 200 mg by mouth daily - prednisone 10 mg daily DISCHARGE INSTRUCTIONS: The patient has been advised to followup with the primary care provider, oncology and pulmonary within the next 7 days. She has been advised to remain compliant with medications. Return to the emergency room if she experiences any problems. Time spent on discharge greater than 35 minutes.
== END 2016-11-20 12:51 | disposition home or self-care (01) | DRG 139 ==
LOC: M ED 19:10 → M ED INP 22:48 → M PCU 11-10 00:17 → M MSPAV 11-10 01:37 → M PCU 11-11 17:43
PROVIDERS: ADMIT General Practice; ATTEND Internal Medicine
DX: J18.9 Pneumonia, unspecified organism (principal); J96.01 Acute respiratory failure with hypoxia; I50.31 Acute diastolic (congestive) heart failure; E87.0 Hyperosmolality and hypernatremia; C79.51 Secondary malignant neoplasm of bone; C79.70 Secondary malignant neoplasm of unspecified adrenal gland; C34.90 Malignant neoplasm of unspecified part of unspecified bronchus or lung; D47.3 Essential (hemorrhagic) thrombocythemia; Z85.118 Personal history of other malignant neoplasm of bronchus and lung; I25.2 Old myocardial infarction; E78.5 Hyperlipidemia, unspecified; D64.9 Anemia, unspecified; M06.9 Rheumatoid arthritis, unspecified; F41.9 Anxiety disorder, unspecified; F32.9 Major depressive disorder, single episode, unspecified; J45.909 Unspecified asthma, uncomplicated; Z79.899 Other long term (current) drug therapy; Z79.82 Long term (current) use of aspirin; Z88.2 Allergy status to sulfonamides; G89.3 Neoplasm related pain (acute) (chronic); Z87.891 Personal history of nicotine dependence; I25.10 Atherosclerotic heart disease of native coronary artery without angina pectoris; T45.1X5A Adverse effect of antineoplastic and immunosuppressive drugs, initial encounter

== ENCOUNTER → 2016-11-23 | Outpatient (REF) | payer BC ==
[~2016-11-23] MED LIST changes: +AMOX875T2 PO; +ASPI81TAEC PO; +AUGM875T28 PO; +BENZ100C5 PO; +CALC1TAB30 PO; +CLOT1CRE TOP; +DEXA4TA PO; +FLUO60TA PO; +LEVA0.636 INH; +NITR4TASL SL; +ONDA8TAB7 PO; +OXYC-517 PO; +PRED10TA2 PO; +PRED20TA PO; +PRED5TA PO; +PROC10TA PO; +RIZA10TA4 PO; +SUMA25TA3 PO; +VITA-193 PO
[2016-11-23 18:55] LABS: BANDS 2 % (< 11)
[2016-11-23 18:56] LABS: ANISOCYTOSIS 1+
== END ==
LOC: M LAB REF 15:13
PROVIDERS: ATTEND Internal Medicine
DX: M06.9 Rheumatoid arthritis, unspecified (principal); D72.89 Other specified disorders of white blood cells

== ENCOUNTER → 2016-11-30 | Outpatient (REF) | payer BC ==
[2016-11-30 14:35] LABS: INR 1.03
== END ==
LOC: M LAB REF 08:30
PROVIDERS: ATTEND Internal Medicine Medical Oncology
DX: C34.90 Malignant neoplasm of unspecified part of unspecified bronchus or lung (principal)

== ENCOUNTER → 2016-12-08 | Day surgery (SDC) | payer BC ==
[~2016-12-08] VITALS: Ht 157.5 cm; Wt 54.4 kg
[~2016-12-08] MED LIST changes: +HEPARIN SOD (PORCINE) 5000 UNITS/ML VIAL As Ordered ONE; +LIDOCAINE 1% SDV INJ 30 ML VIAL As Ordered ONE; +LIDOCAINE 2% INJ 100 MG/5 ML SDV (FOR ANES.) As Ordered ONE; +LR 1,000 ML IV SCH; +MIDAZOLAM INJ 2 MG/2 ML VIAL (J2250) As Ordered ONE; +ONDANSETRON 4MG/2ML VIAL (J2405) IV PRN; +PERCOCET 5MG/325MG TAB PO PRN; +PHENYLephrine HCL 500 MCG/5 ML (100MCG/ML) SYRINGE (J2370) As Ordered ONE; +PROPOFOL 200 MG/20 ML VIAL As Ordered ONE; +fentaNYL 100 MCG/2 ML INJECTION (J3010) As Ordered ONE
--- NOTE | 2016-12-08 15:21 | REP ---
PARTIAL CHEST X-RAY: Single view. HISTORY: Chemotherapy. IV access. 2 seconds of fluoroscopy time is reported. FINDINGS: A single last image hold fluoroscopic spot radiograph of the chest documents catheter positioned in the expected location of the superior vena cava. Signed by Luis Orosco MD 12/08/2016 04:38 P
[2016-12-08 16:00] VITALS: BP 111/56
--- NOTE | 2016-12-08 17:44 | RO ---
DATE OF PROCEDURE: 12/08/2016 PREOPERATIVE DIAGNOSIS: Metastatic lung cancer. POSTOPERATIVE DIAGNOSIS: Metastatic lung cancer. PROCEDURE PERFORMED: Implantation of right internal jugular vein [id number]-R-[id number] with ultrasound and fluoroscopic guidance. SURGEON: Dr. Shelley ANESTHESIA: Monitored anesthesia care with 1% Xylocaine. INDICATIONS FOR PROCEDURE: Patient is a 61-year-old woman who was diagnosed with lung cancer 15 years ago and underwent a partial lung resection. She recently was diagnosed with metastatic disease and is now for chemotherapy and is for placement of an Zuezto-C-Asrx. OPERATIVE PROCEDURE: The patient was placed supine on the operating table. The patient's upper chest and neck were prepped and draped in a sterile fashion. She received sedation from anesthesia. The right neck was inspected with the Site-Rite ultrasound in the internal jugular vein. Identification was enhanced by placing the patient into a Trendelenburg position. After local anesthesia was achieved an18 gauge needle was inserted under continuous ultrasound guidance. The skin was nicked and a peel-away sheath introducer was passed and the catheter was then inserted to approximately 20 cm. The catheter flushed readily with heparinized saline. The catheter was pulled back to approximately 15 cm at the skin surface. The patient was returned to a flat position and inspection was performed using fluoroscopy. With fluoroscopic guidance the catheter was pulled back to approximately 11 cm at the skin surface. This appeared to give good positioning of the tip of the catheter. Blood aspirated easily and the catheter was again flushed with heparinized saline. Additional local anesthesia was achieved in the infraclavicular fossa and a roughly 2-1/2 cm transverse skin incision was made. A subcutaneous pocket was created and the catheter was tunneled subcutaneously down to this pocket. The catheter was cut to length and attached to the port using the locking ring. The port was placed into the subcutaneous pocket and two sutures of 3-0 Vicryl were placed to tack the port to the underlying fascia. The skin edges were brought into apposition with several buried sutures of 3-0 Vicryl. Both incisions were closed with buried 5-0 Vicryl. Steri-Strips were applied. The catheter was accessed a final time and flushed with 100 units/cc heparin solution. Small OpSite dressings were applied to both incisions. The patient tolerated the procedure well without apparent complication. She was transported to the recovery room in stable condition. The port placed was a Bard port Wuampo-T-Gadi product code number [id number] and lot number [id number]. [facility]
== END | disposition home or self-care (01) ==
LOC: M SDC 11:50
PROVIDERS: ATTEND Surgery
DX: Z45.2 Encounter for adjustment and management of vascular access device (principal); C34.90 Malignant neoplasm of unspecified part of unspecified bronchus or lung; C79.51 Secondary malignant neoplasm of bone; C79.70 Secondary malignant neoplasm of unspecified adrenal gland; Z92.21 Personal history of antineoplastic chemotherapy; Z79.82 Long term (current) use of aspirin; F03.90 Unspecified dementia, unspecified severity, without behavioral disturbance, psychotic disturbance, mood disturbance, and anxiety; Z79.899 Other long term (current) drug therapy; F41.9 Anxiety disorder, unspecified; Z87.891 Personal history of nicotine dependence
CPT/HCPCS: 36561; 76000; C1788; J0690; J2250; J2370; J3010

== ENCOUNTER 2016-12-09 05:21 | Inpatient (IN) | payer BC ==
[~2016-12-09] VITALS: Ht 157.5 cm; Wt 56.8 kg
[~2016-12-09 05:21] MED LIST changes: -AMOX875T2 PO; -AUGM875T28 PO; -CALC1TAB30 PO; -CLOT1CRE TOP; -DEXA4TA PO; -HEPARIN SOD (PORCINE) 5000 UNITS/ML VIAL As Ordered ONE; -LEVA0.636 INH; -LIDOCAINE 1% SDV INJ 30 ML VIAL As Ordered ONE; -LIDOCAINE 2% INJ 100 MG/5 ML SDV (FOR ANES.) As Ordered ONE; -LR 1,000 ML IV SCH; -MIDAZOLAM INJ 2 MG/2 ML VIAL (J2250) As Ordered ONE; -NITR4TASL SL; -ONDA8TAB7 PO; -ONDANSETRON 4MG/2ML VIAL (J2405) IV PRN; -PERCOCET 5MG/325MG TAB PO PRN; -PHENYLephrine HCL 500 MCG/5 ML (100MCG/ML) SYRINGE (J2370) As Ordered ONE; -PRED20TA PO; -PROC10TA PO; -PROPOFOL 200 MG/20 ML VIAL As Ordered ONE; -RIZA10TA4 PO; -SUMA25TA3 PO; -fentaNYL 100 MCG/2 ML INJECTION (J3010) As Ordered ONE
[2016-12-09] MEDS ORDERED: LEVALBUTEROL 1.25 MG/0.5 ML CONCENTRATE NEB NEB ONE (06:45)
[2016-12-09] MEDS ORDERED: AZITHROMYCIN INJ 500 MG, VIAL MATE ADAPTER 1 EACH in D5W 250 ML IV ONE (07:30)
[2016-12-09] MEDS ORDERED: cefTRIAXone SOD 1 GM in D5W MINI-BAG PLUS 50 ML IV ONE (07:30)
[2016-12-09] MEDS: LR 1,000 ML IV SCH ×5 (07:47→22:48)
--- NOTE | 2016-12-09 07:54 | REP ---
Clinical: Shortness of breath. Rule out pneumonia. Technique: PA and lateral. Comparison: 11/27/2016. Findings: Diffuse bilateral increased interstitial markings and evidence to suggest hilar adenopathy are again appreciated. Superimposed increased bibasilar infiltrates and pleural effusions are identified. [id number] identified in the SVC. Visualized cardiac silhouette remains stable. Skeletal structures are intact. Impression: Changes related to underlying neoplasm. Superimposed new bibasilar infiltrates and pleural effusions Signed by Matheus Rawls MD 12/09/2016 07:46 A
[2016-12-09 08:03] LABS: ADD MANUAL DIFFER YES; MEAN CORPUSCULAR HEMOGLOBIN 28.5 pg (27.0-33.0); MEAN CORPUSCULAR HGB CONC 31.2 g/dl (32.0-36.5); MEAN CORPUSCULAR VOLUME 91.4 fl (80.0-96.0); PLATELET COUNT, AUTOMATED 197 k/mm3 (150-450); RED CELL DISTRIBUTION WIDTH 17.5 % (11.5-14.5); WHITE BLOOD COUNT 8.2 K/mm3 (4.0-10.0)
[2016-12-09 08:08] LABS: ALBUMIN 2.7 GM/DL (3.2-5.2); ALBUMIN/GLOBULIN RATIO 0.87 (1.00-1.93); ALKALINE PHOSPHATASE 124 U/L (45-117); ALT/SGPT 12 U/L (12-78); ANION GAP 10 MEQ/L (8-16); AST/SGOT 8 U/L (15-37); BILIRUBIN,TOTAL 0.3 MG/DL (0.2-1.0); BLOOD UREA NITROGEN 13 MG/DL (7-18); CARBON DIOXIDE LEVEL 27 MEQ/L (21-32); CHLORIDE LEVEL 105 MEQ/L (98-107); CREATININE FOR GFR 0.72 MG/DL (0.55-1.02); GLOMERULAR FILTRATION RATE > 60.0 (>51); GLUCOSE, FASTING 92 MG/DL (70-105); POTASSIUM SERUM 4.1 MEQ/L (3.5-5.1); SODIUM LEVEL 142 MEQ/L (136-145); TOTAL PROTEIN 5.8 GM/DL (6.4-8.2)
[2016-12-09] MEDS ORDERED: ISOVUE-370 76% 100ML VIAL (Q9967) As Ordered ONE (08:13)
[2016-12-09 08:37] LABS: BANDS 8 % (< 11); EOSINOPHILS 6 % (0-5); TOXIC GRANULATION 1+
[2016-12-09 08:38] LABS: DOHLE BODIES 1+; HYPOCHROMASIA 1+; POIKILOCYTOSIS 1+; POLYCHROMASIA 1+
[2016-12-09 08:39] LABS: ANISOCYTOSIS 2+; MICROCYTOSIS 1+
--- NOTE | 2016-12-09 08:51 | REP ---
Clinical: Shortness of breath with acute findings on chest x-ray. Comparison: CT dated 11/18/2016; CXR dated 12/09/2016, 11/27/2016. Technique: Axial contrast enhanced images from the thoracic inlet to the upper abdomen using 100 ml Isovue 370 intravenous contrast material with coronal and sagittal re-formations. Findings: Areas of consolidation with air bronchograms extending from the right hilum and involving the posterior right upper lung zone as well as posterior medial left lower lobe consolidation remain relatively similar to prior examination. However, the posterior medial left lower lobe consolidation may now have a small central 15 mm fluid component. A new area of atelectasis along the medial right right lung and right mediastinal border appears slightly increased. Diffuse bilateral chronic interstitial changes, scattered scarring and bronchiectasis are unchanged. Very subtle patchy air space disease predominantly noted in the left lung suggest early acute infiltrates. Small right pleural effusion and moderate left pleural effusion have definitively increased when compared to the chest x-ray dated 11/27/2016. Mediastinum demonstrates relatively normal thoracic aorta and heart/pericardium without pericardial effusion. Postsurgical changes involving the right hilum remains stable. The above mentioned chronic findings may be in part related to post radiation type changes. Soft tissue within the mediastinum which may reflect lymph nodes are essentially unchanged and no new adenopathy is identified. Surrounding musculoskeletal structures are intact without focal osseous abnormality. Limited evaluation of the upper abdomen again demonstrates stable bilateral adrenal lesions. Impression: 1. In comparison with chest x-ray dated 11/27/2016, bilateral pleural effusions (left greater than right) and subtle scattered alveolar infiltrates represent acute findings. 2. Diffuse chronic changes as described above remains stable when compared to chest CT dated 11/18/2016. 3. The area of consolidation in the posterior left lower lobe may now have a small central necrotic/fluid-filled component measuring 15 mm. Signed by Matheus Rawls MD 12/09/2016 08:42 A
[2016-12-09] MEDS ORDERED: PANTOPRAZOLE 40MG TAB (PROTONIX) PO SCH (09:00)
[2016-12-09] MEDS ORDERED: PIPERACILLIN/TAZOBACTAM SOD 4.5 GM in D5W MINI-BAG PLUS 50 ML IV ONE (09:15)
[2016-12-09] MEDS ORDERED: ACETAMINOPHEN 325 MG TAB PO ONE (09:45)
[2016-12-09] MEDS ORDERED: LR 1,000 ML IV ONE (09:45)
[2016-12-09] MEDS ORDERED: ACETAMINOPHEN TAB 650MG DOSE (2X325MG) PO PRN (10:45)
[2016-12-09] MEDS ORDERED: ONDANSETRON 4MG/2ML VIAL (J2405) IV PRN (10:45)
--- NOTE | 2016-12-09 11:15 | PHACANCOPD ---
PHARMACY VANCOMYCIN DOSING Pt Demographics Demographics Patient Age:61 , Weight:53.000 , Gender: female Adjusted Body Weight Date: 12/09/16, Adjusted Body Weight: [53] Kg Events Past 24 Hours Events Past 24 Hours: NO: Dialysis, Diuretic Therapy, Change in CrCl, Fever, Elevation in WBC, Pending Diagnostics, Pending Procedures, Other Vancomycin Vancomycin indication: HCAP Vancomycin Target Ranges: 10-20 mcg/ml Vancomycin Load Y/N: No Load Dose Date Time Vancomycin Load Dose: Date: Time: Vancomycin Dose Date: 12/09/16. Current Vancomycin Dose: [1G IV Q12H ] Intermittent Dosing?: No Labs Labs Item Value Date Time Creatinine 0.72 MG/DL 12/09/16 0732 Vital Signs Label Value Date Time Patient Temperature 96.3 degrees F 12/09/16 0918 Temperature Source Oral 12/09/16 0918 Patient Temperature 101.9 degrees F 12/09/16 0524 Temperature Source Oral 12/09/16 0524 Micro Microbiology 12/09/16 Blood Culture, Received Pending 12/09/16 Blood Culture, Received Pending 12/09/16 Respiratory Virus Panel (PCR) ([facility]), Received Pending Creatinine Clearance Date:12/09/16. Creatinine Clearance: [71.9ML/MIN]. Assessment and Plan Maintaining Current Dose?: Yes Reason for dose change: No Dose Change Pharmacist Note Pharmacist Note Date: 12/09/16. Pharmacist note: PT is a 61 year old female being treated for HCAP with a history of vancomycin therapy here at [facility] in the past. Therapy is being initiated at 1g iv q12h starting at 13:00 12/09/16. A trough has been scheduled after the 4th dose at 12:09 12/11/16. We will continue to monitor and adjust dose as needed. [facility] Dec 09, 2016 11:15
[2016-12-09] MEDS ORDERED: RIZA10TA4 PO (11:34)
[2016-12-09] MEDS ORDERED: OMEP20CA3 PO (11:34)
[2016-12-09] MEDS ORDERED: PRED20TA PO (11:34)
[2016-12-09] MEDS ORDERED: CLOT1CRE TOP (11:34)
[2016-12-09] MEDS ORDERED: PROC10TA PO (11:34)
[2016-12-09] MEDS ORDERED: ONDA8TAB7 PO (11:34)
[2016-12-09] MEDS ORDERED: DEXA4TA PO (11:34)
[2016-12-09] MEDS ORDERED: SUMA25TA3 PO (11:34)
[2016-12-09] MEDS ORDERED: SUMAtriptan SUCCINATE 25 MG TAB PO PRN (11:45)
[2016-12-09] MEDS ORDERED: ONDANSETRON 4 MG TAB (S0181) PO PRN (11:45)
[2016-12-09] MEDS ORDERED: ALBUTEROL 90 MCG/ACT 8GM HFA INHALER INH PRN (11:45)
[2016-12-09] MEDS ORDERED: RIZATRIPTAN MLT 10 MG TAB PO PRN (11:45)
[2016-12-09] MEDS ORDERED: ALBUTEROL SULFATE 2.5 MG/0.5 ML INH NEB SOLN INH PRN (11:45)
[2016-12-09] MEDS ORDERED: CLOTRIMAZOLE 1% TOPICAL CREAM 30GM TOP PRN (11:45)
[2016-12-09] MEDS ORDERED: PROCHLORPERAZINE 5 MG TAB (S0183) PO PRN (11:45)
[2016-12-09] MEDS ORDERED: methylPREDNISolone INJ 125 MG/2 ML VIAL (J2930) IV SCH (12:00)
--- NOTE | 2016-12-09 13:10 | HPE ---
DATE OF ADMISSION: 12/09/2016 PRIMARY CARE PHYSICIAN: Dr. Lakeshia Hernandez ONCOLOGIST: Dr. Leslie Hathaway CHIEF COMPLAINT: Fever and shortness of breath. HISTORY OF THE PRESENT ILLNESS: The patient is a 61-year-old female who was recently seen and admitted on 11/10/2016 through 11/20/2016. At the time, she presented with similar complaints of shortness of breath and fever. Throughout her course, there was concern for multiple etiologies, including adverse reaction to Keytruda chemotherapy, which has since been discontinued. She was treated with intravenous (IV) steroids and has been taking her steroids since with a tapering dose. There was also concern for pneumonia. She received several days of Zosyn and was discharged on levofloxacin, which she has completed taking. There was also concern for potential aspiration. The patient is also on methotrexate, and there was concern about methotrexate toxicity. The patient also has some diastolic dysfunction and known coronary disease. There was some consideration to the contributing factor of pulmonary edema, and the patient at her baseline has obstructive lung disease, on bronchodilators as well as non-small cell lung cancer, status post right upper lobectomy with recurrence this year. Since her discharge, the patient tells me that at the time of discharge she was afebrile and required oxygen only with activity, which was a new oxygen requirement for her. However, she presents now with worsening shortness of breath and once again recurrence of fever. She did have a right internal jugular (IJ) port placed by Dr. Shelley yesterday and tolerated the procedure well. Her decline had started before that she tells me, but the fevers started only after. The patient, at the present time, tells me that she feels as though she is getting worse. She tells me that she did start carboplatin as well as another chemotherapeutic agent with Dr. Leslie Hathaway within the past several weeks. She denies chest pain, lightheadedness, dizziness, nausea or vomiting. She does complain of some dysphagia. PAST MEDICAL HISTORY: Much of which is mentioned above. Rheumatoid arthritis. Coronary artery disease, status post stents. Obstructive lung disease. Anemia. Depression. Dyslipidemia. Gastroesophageal reflux disease. Dyslipidemia. HOME MEDICATIONS: - prednisone 20 mg daily - biotin 5000 daily - calcium 600 mg daily - Effient 5 mg daily - Treximet 10-60 as needed migraine - albuterol nebulizer inhaled four times a day as needed for shortness of breath - Ventolin HFA two puffs four times a day as needed for shortness of breath - vitamin C 500 mg daily - aspirin 81 mg daily - Symbicort 160-4.5 two puffs inhaled twice a day - bupropion XL 300 mg daily - vitamin D3 2000 units daily - clotrimazole cream topically as needed for rash - vitamin B12 500 mcg daily - fluoxetine 60 mg daily - folic acid 1 mg daily - lorazepam 1 mg by mouth nightly - omeprazole 40 mg daily - Zofran 8 mg by mouth every 6 hours as needed for nausea/vomiting - oxycodone 5 mg four times a day as needed for pain - pravastatin 40 mg nightly - prochlorperazine malleate 10 mg nightly as needed for nausea or vomiting - rizatriptan 10 mg by mouth as needed for migraines - sumatriptan 25 mg by mouth as needed for migraines HOME MEDICATIONS: SULFA DRUGS. SURGICAL HISTORY: Tubal ligation. Right lobectomy. Colonoscopy. SOCIAL HISTORY: The patient is a former smoker, quit 13 years ago. She denies alcohol or illicit drug use. FAMILY HISTORY: Noncontributory. REVIEW OF SYSTEMS: Ten-point system completed and negative other than in the history of the present illness (HPI). PHYSICAL EXAMINATION: VITAL SIGNS: Temperature 96.3, maximum temperature (temp max) 101.9, pulse 114, respiratory rate 24, blood pressure 94/46, oxygen saturation 96% on 3 liters. In general, she is a frail, cachectic female, laying on a stretcher at a 60-degree angle. She does appear older than stated age. She is accompanied by her sister, Leighann Magana. The patient does not appear to be in acute distress. She speaks in complete sentences without accessory muscle use. HEENT: Bitemporal wasting. She has moist mucous membranes. No elevation of central venous pressure (CVP). CARDIOVASCULAR EXAM: S1, S2. She is tachycardic. RESPIRATORY EXAM: Actually fairly clear. There are some scattered bibasilar rales. ABDOMINAL EXAM: Benign. EXTREMITIES: There is no clubbing, cyanosis or edema. LABORATORY STUDIES: WBC 8.2, hemoglobin 8.9, hematocrit 28.5, platelet count 197. Also, in the differential, she has 6 eosinophils, 5 metamyelocytes and 7 myelocytes. Chemistry panel: Sodium 142, potassium 4.1, chloride 105, bicarbonate 27, BUN 13, creatinine 0.7, lactic acid of 0.9. CRP is pending. BNP is within normal limits. UA is positive for blood. Two sets of blood cultures have been drawn. IMAGING: The patient did have a CT scan of the chest, which revealed bilateral pleural effusion, left greater than right and subtle scattered alveolar infiltrates, diffuse chronic stable changes. An area of consolidation in the posterior left lower lobe. May have a small central necrotic fluid filled component measuring 15 mm. ASSESSMENT AND PLAN: This is a 61-year-old female re-presenting once again with fever and shortness of breath. Problems: 1. Fever and shortness of breath. Given her recent hospitalization, there is certainly concern for healthcare-associated hospital-acquired pneumonia. She did improve on Zosyn but apparently has gotten worse when she was discharged on levofloxacin. For the time being, we will place her on vancomycin and Zosyn. I will check a methicillin-resistant Staphylococcus aureus (MRSA) screen of her nares. I will also check a respiratory PCR panel. She did receive some lactated Ringer's in the emergency room. There was also a possibility of worsening cancer, which could certainly cause fever. She did not have fevers during the latter part of her recent hospital course, and as such, I feel it is less likely that her fever is related to her malignancy. However, it could certainly be an etiology for her worsening respiratory status and will contact the hematology service as this could also be an adverse reaction to new chemotherapy. At this time, it is unclear what she is actually on. She certainly does have very slightly elevated eosinophils. Will once again place her on IV Solu-Medrol. I do not feel as though her shortness of breath and fever is related to her new line that has been placed. It was done very recently. We will check blood cultures. There is no pneumothorax. It seems less likely that her shortness of breath and fever are related to any coronary disease. She did have some mild equivocal troponin elevation during her last stay and as such, we will admit her to the progressive care unit (PCU) and trend this. However, it is less likely, she does not appear to be in pulmonary edema either. She has a normal BNP on her laboratory studies as well. At the patient's baseline, her respiratory status is likely somewhat compromised given that she is status post lobectomy and has obstructive lung disease. Will continue with her bronchodilators. I have contacted Dr. Schaefer who saw the patient previously and agrees with the aforementioned plan. For the time being, would recommend holding any further chemotherapy and holding the patient's methotrexate as well as she does have some diffuse alveolar infiltrates on her CT. There was also some concern for aspiration. The patient provides a history of coughing and choking while eating for the last several weeks. I will place a formal speech therapy evaluation and treat consult. She would likely benefit from an esophagram as well. For the time being, I have placed her on a pureed honey-thickened liquid diet. 2. Depression. Continue with Wellbutrin and Prozac. 3. Insomnia. Continue with Ativan. 4. Coronary artery disease. Will trend her troponins as outlined above. She is on aspirin. She is on a statin and likely intolerant of beta graciela given her current respiratory status. 5. Lung cancer, non-small cell, metastatic to the bone, stage IV. Once again, will place a hematology consult. Will hold any chemotherapy for the time being. We are providing her with steroids. Also, please note the patient is on pain control and antiemetics. 6. Rheumatoid arthritis. We are holding her methotrexate. She is on B12 and folate. 7. Gastroesophageal reflux disease. The patient is on omeprazole. 8. Anemia. Possibly related to chemotherapy. This does not sound like symptomatic anemia. Will continue to monitor hemoglobin and hematocrit. Should it continue to decline, she may benefit from blood transfusion. 9. Deep vein thrombosis (DVT) prophylaxis. The patient will be on Lovenox. DISPOSITION: The patient is admitted to the progressive care unit. We will continue to follow this patient closely. Her prognosis is guarded. I did discuss code status with the patient and confirmed that she is a FULL CODE.
[2016-12-09] MEDS ORDERED: LEVALBUTEROL 1.25 MG/0.5 ML CONCENTRATE NEB INH PRN (13:15)
[2016-12-09] MEDS: SUMAtriptan SUCCINATE 25 MG TAB PO PRN (13:24)
[2016-12-09 14:00] VITALS: BP 108/51
[2016-12-09] MEDS: buPROPion **XL** TABLET 150MG (WELLBUTRIN XL) PO SCH (14:34)
[2016-12-09] MEDS: ASPIRIN 81 MG ENTERIC TAB PO SCH (14:34)
[2016-12-09] MEDS: OMEPRAZOLE 20 MG CAP PO SCH (14:35)
[2016-12-09] MEDS: FLUoxetine 20 MG CAP PO SCH (14:35)
[2016-12-09] MEDS: FOLIC ACID 1 MG TAB PO SCH (14:35)
[2016-12-09] MEDS: methylPREDNISolone INJ 125 MG/2 ML VIAL (J2930) IV SCH ×2 (14:36→20:07)
[2016-12-09] MEDS: ENOXAPARIN 40 MG/0.4 ML SYRINGE (J1650) SC SCH (14:36)
[2016-12-09] MEDS: VANCOMYCIN HCL 1,000 MG, VIAL MATE ADAPTER 1 EACH in D5W 250 ML IV SCH (14:37)
[2016-12-09] MEDS: LEVALBUTEROL 1.25 MG/0.5 ML CONCENTRATE NEB INH SCH ×2 (14:56→20:00)
[2016-12-09] MEDS: PIPERACILLIN/TAZOBACTAM SOD 3.375 GM in D5W MINI-BAG PLUS 50 ML IV SCH (18:44)
[2016-12-09] MEDS: SYMBICORT 160/4.5MCG INHALER 6GM INH SCH (19:38)
[2016-12-09] MEDS: PRAVASTATIN 20 MG TAB PO SCH (20:07)
[2016-12-09] MEDS: LORazepam 1 MG TAB PO SCH (20:07)
[2016-12-09] MEDS: oxyCODONE 5MG TAB PO PRN (20:09)
[2016-12-09 22:00] VITALS: BP 105/53
[2016-12-10] MEDS: PIPERACILLIN/TAZOBACTAM SOD 3.375 GM in D5W MINI-BAG PLUS 50 ML IV SCH ×3 (00:23→19:44)
[2016-12-10] MEDS: VANCOMYCIN HCL 1,000 MG, VIAL MATE ADAPTER 1 EACH in D5W 250 ML IV SCH ×2 (01:26→14:28)
[2016-12-10] MEDS: methylPREDNISolone INJ 125 MG/2 ML VIAL (J2930) IV SCH ×4 (01:37→20:16)
[2016-12-10] MEDS: LR 1,000 ML IV SCH ×3 (02:30→09:59)
[2016-12-10 05:55] LABS: MEAN CORPUSCULAR HEMOGLOBIN 29.5 pg (27.0-33.0); MEAN CORPUSCULAR HGB CONC 32.6 g/dl (32.0-36.5); MEAN CORPUSCULAR VOLUME 90.6 fl (80.0-96.0); RED CELL DISTRIBUTION WIDTH 17.1 % (11.5-14.5); WHITE BLOOD COUNT 10.5 K/mm3 (4.0-10.0)
[2016-12-10 06:00] VITALS: BP 110/58
[2016-12-10 06:20] LABS: BLOOD UREA NITROGEN 11 MG/DL (7-18); CARBON DIOXIDE LEVEL 25 MEQ/L (21-32); CHLORIDE LEVEL 109 MEQ/L (98-107); CREATININE FOR GFR 0.55 MG/DL (0.55-1.02); GLUCOSE, FASTING 134 MG/DL (70-105); POTASSIUM SERUM 3.9 MEQ/L (3.5-5.1); SODIUM LEVEL 143 MEQ/L (136-145)
[2016-12-10 06:30] LABS: CALCIUM LEVEL 9.1 MG/DL (8.5-10.1)
[2016-12-10] MEDS: SYMBICORT 160/4.5MCG INHALER 6GM INH SCH ×2 (07:08→19:29)
[2016-12-10] MEDS: LEVALBUTEROL 1.25 MG/0.5 ML CONCENTRATE NEB INH SCH ×4 (07:08→20:00)
[2016-12-10 07:13] LABS: ANION GAP 9 MEQ/L (8-16)
[2016-12-10] MEDS: OMEPRAZOLE 20 MG CAP PO SCH (08:39)
[2016-12-10] MEDS: ENOXAPARIN 40 MG/0.4 ML SYRINGE (J1650) SC SCH (08:40)
[2016-12-10] MEDS: VITAMIN D 1,000 INTERNATIONAL UNITS TABLET PO SCH (08:40)
[2016-12-10] MEDS: ASCORBIC ACID 500 MG TAB PO SCH (08:41)
[2016-12-10] MEDS: CYANOCOBALAMIN 500 MCG TAB PO SCH (08:41)
[2016-12-10] MEDS: buPROPion **XL** TABLET 150MG (WELLBUTRIN XL) PO SCH (08:41)
[2016-12-10] MEDS: ASPIRIN 81 MG ENTERIC TAB PO SCH (08:41)
[2016-12-10] MEDS: FOLIC ACID 1 MG TAB PO SCH (08:41)
[2016-12-10] MEDS: FLUoxetine 20 MG CAP PO SCH (08:42)
[2016-12-10] MEDS: SUMAtriptan SUCCINATE 25 MG TAB PO PRN (10:02)
[2016-12-10] MEDS ORDERED: FUROSEMIDE 40 MG/4 ML VIAL (J1940) IV ONE (13:00)
[2016-12-10 14:00] VITALS: BP 111/55
--- NOTE | 2016-12-10 14:53 | IPN ---
DATE: 12/10/2016 SUBJECTIVE: The patient tells me that she is feeling a little bit better, but she is still short of breath. She denies chest pain, lightheadedness. Denies any fevers or chills. OBJECTIVE: VITAL SIGNS: Temperature 97.7, maximum temperature (T max) 98.1, pulse 102, respiratory rate 20, blood pressure 110/58, oxygen saturation 93% on two liters. GENERAL: She is a frail female lying in bed at a 30-degree angle. She does not appear to be in any acute distress. She is very pleasant. HEENT: She has some mild bitemporal wasting. Moist mucous membranes. No elevation of central venous pressure (CVP). CARDIOVASCULAR EXAM: S1, S2. She is tachycardic. No distant heart sounds appreciated. RESPIRATORY EXAM: There are scattered rales and diminished breath sounds at the bases but good inspiratory effort and diminished breath sounds throughout. ABDOMINAL EXAM: Benign. EXTREMITIES: No clubbing, cyanosis or edema. LABORATORY STUDIES: WBC 10.5, hemoglobin 7.6, platelet count 162. Chemistry panel: Sodium 143, potassium 3.9, chloride 109, bicarbonate 25, BUN 11, creatinine 0.55. She had an unremarkable BNP. CRP of 11. Two sets of cardiac enzymes negative. Microbiology: Respiratory PCR panel is negative. Blood culture is negative at 24 hours and methicillin-resistant Staphylococcus aureus (MRSA) screen of the nares is pending. No new imaging. ASSESSMENT AND PLAN: This is a 61-year-old female with fever and shortness of breath. Problems: 1. Fever and shortness of breath. I did have a chance to discuss the case with Dr. Schaefer, who has seen the patient previously, and was able to review her scans. The area of necrosis mentioned on her CT scan may be tumor versus possible abscess. This very well may be the etiology for her shortness of breath and fever. Now that she is back on antibiotics, she is afebrile quite quickly. If her cultures all remain negative, will likely transition her to Augmentin to complete a 6-week course and outpatient followup. However, for the time being, we are treating her empirically for healthcare-associated pneumonia. There is also the possibility of worsening cancer; however, it does not appear so in relation to her CT scans and there is also not evidence of postobstructive pneumonia process. There is certainly the possibility of medication adverse effects. She was recently on Keytruda, and it was felt that she may have had an adverse reaction to that. She was also on methotrexate. She was also recently started on new chemotherapy. All chemotherapy and methotrexate is currently on hold. She is receiving intravenous (IV) Solu-Medrol, which likely explains the rise in her white blood cells (WBCs). She did have a slightly elevated eosinophil count yesterday. The patient has some baseline respiratory status compromise, which further debilitates her, including right upper lobectomy and obstructive lung disease. She was continued on her bronchodilators. The patient gave no history of aspiration with coughing and choking on her food. For the time being, she is on a pureed honey-thickened liquid diet. Speech evaluation ordered. This could also potentially lead to abscess formation. 2. Coronary artery disease and diastolic congestive heart failure. She is on aspirin. She is on a statin and intolerant to beta graciela in her current respiratory state. Her BNP was within normal limits and her physical examination is not suggestive of fluid overload. She feels fairly well compensated. 3. Depression. Continue with Wellbutrin and Prozac. 4. Insomnia. Continue with Ativan. 5. Lung cancer, stage IV, with metastasis to the bone. She follows closely with Dr. Hathaway. She is on pain medication and antiemetics. 6. Rheumatoid arthritis. She is on B12 and folate. We are holding her methotrexate. 7. Gastroesophageal reflux disease. She is on omeprazole. 8. Anemia. Possibly symptomatic. I feel as though this may be another contributing factor to her poor respiratory status. I will transfuse her two units of packed red blood cells and see if it does improve her respiratory status. However, last discharge she required oxygen only with ambulation. 9. Deep vein thrombosis (DVT) prophylaxis. She is on Lovenox. DISPOSITION: Her prognosis is guarded. We will continue to monitor her closely. She is a FULL CODE. MTDD
[2016-12-10 20:00] VITALS: BP 117/59
[2016-12-10] MEDS: PRAVASTATIN 20 MG TAB PO SCH (20:15)
[2016-12-10] MEDS: LORazepam 1 MG TAB PO SCH (20:15)
--- NOTE | 2016-12-10 21:49 | ECGEPIP ---
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
[2016-12-10 22:09] LABS: MEAN CORPUSCULAR HEMOGLOBIN 28.7 pg (27.0-33.0); MEAN CORPUSCULAR HGB CONC 32.5 g/dl (32.0-36.5); MEAN CORPUSCULAR VOLUME 88.3 fl (80.0-96.0); RED CELL DISTRIBUTION WIDTH 16.4 % (11.5-14.5); WHITE BLOOD COUNT 15.5 K/mm3 (4.0-10.0)
[2016-12-11] MEDS: VANCOMYCIN HCL 1,000 MG, VIAL MATE ADAPTER 1 EACH in D5W 250 ML IV SCH ×2 (00:56→13:03)
[2016-12-11] MEDS: PIPERACILLIN/TAZOBACTAM SOD 3.375 GM in D5W MINI-BAG PLUS 50 ML IV SCH ×2 (00:56→10:20)
[2016-12-11] MEDS: methylPREDNISolone INJ 125 MG/2 ML VIAL (J2930) IV SCH ×4 (02:14→20:46)
[2016-12-11 05:44] LABS: MEAN CORPUSCULAR HEMOGLOBIN 29.5 pg (27.0-33.0); MEAN CORPUSCULAR HGB CONC 32.6 g/dl (32.0-36.5); MEAN CORPUSCULAR VOLUME 90.6 fl (80.0-96.0); RED CELL DISTRIBUTION WIDTH 16.8 % (11.5-14.5); WHITE BLOOD COUNT 18.4 K/mm3 (4.0-10.0)
[2016-12-11 05:50] VITALS: BP 127/63
[2016-12-11] MEDS: LORazepam 1 MG TAB PO PRN (05:57)
[2016-12-11 06:02] LABS: ANION GAP 8 MEQ/L (8-16); BLOOD UREA NITROGEN 11 MG/DL (7-18); CALCIUM LEVEL 8.8 MG/DL (8.5-10.1); CARBON DIOXIDE LEVEL 29 MEQ/L (21-32); CHLORIDE LEVEL 104 MEQ/L (98-107); CREATININE FOR GFR 0.74 MG/DL (0.55-1.02); GLOMERULAR FILTRATION RATE > 60.0 (>51); GLUCOSE, FASTING 118 MG/DL (70-105); POTASSIUM SERUM 3.6 MEQ/L (3.5-5.1); SODIUM LEVEL 141 MEQ/L (136-145)
[2016-12-11 07:15] LABS: MAGNESIUM LEVEL 1.8 MG/DL (1.8-2.4)
[2016-12-11] MEDS: SYMBICORT 160/4.5MCG INHALER 6GM INH SCH ×2 (07:16→19:12)
[2016-12-11] MEDS: LEVALBUTEROL 1.25 MG/0.5 ML CONCENTRATE NEB INH SCH ×4 (08:00→19:12)
[2016-12-11] MEDS ORDERED: INFLUENZA QUADRIVALENT PF VACCINE 0.5ML SYRINGE (90686) IM ONE (09:00)
[2016-12-11] MEDS: FOLIC ACID 1 MG TAB PO SCH (10:17)
[2016-12-11] MEDS: FLUoxetine 20 MG CAP PO SCH (10:17)
[2016-12-11] MEDS: CYANOCOBALAMIN 500 MCG TAB PO SCH (10:17)
[2016-12-11] MEDS: OMEPRAZOLE 20 MG CAP PO SCH (10:17)
[2016-12-11] MEDS: ASCORBIC ACID 500 MG TAB PO SCH (10:17)
[2016-12-11] MEDS: buPROPion **XL** TABLET 150MG (WELLBUTRIN XL) PO SCH (10:17)
[2016-12-11] MEDS: ASPIRIN 81 MG ENTERIC TAB PO SCH (10:18)
[2016-12-11] MEDS: VITAMIN D 1,000 INTERNATIONAL UNITS TABLET PO SCH (10:18)
[2016-12-11] MEDS: PRASUGREL 5 MG PO SCH (10:18)
[2016-12-11] MEDS: ENOXAPARIN 40 MG/0.4 ML SYRINGE (J1650) SC SCH (10:19)
[2016-12-11] MEDS: oxyCODONE 5MG TAB PO PRN (10:25)
[2016-12-11] MEDS ORDERED: VARIBAR PUDDING 40% w/v 230ML TUBE As Ordered ONE (11:51)
[2016-12-11] MEDS ORDERED: VARIBAR NECTAR 40% w/v 240ML SUSP BTL As Ordered ONE (11:51)
[2016-12-11] MEDS ORDERED: E-Z-PAQUE 96% w/w SUSP 176GM BTL As Ordered ONE (11:51)
[2016-12-11 14:00] VITALS: BP 126/62
[2016-12-11] MEDS ORDERED: FUROSEMIDE 20 MG/2 ML VIAL (J1940) IV ONE (15:00)
[2016-12-11] MEDS ORDERED: POTASSIUM CHLORIDE 10 MEQ SR TABLET PO ONE (15:00)
[2016-12-11] MEDS ORDERED: MAG SULF 1GM/100ML (MAG RUN) 1 GM in APPROPRIATE DILUENT 1 EA IV ONE (15:00)
[2016-12-11] MEDS: AUGMENTIN 875 MG TAB PO SCH ×2 (15:09→20:46)
--- NOTE | 2016-12-11 15:22 | IPN ---
DATE: 12/11/2016 SUBJECTIVE: The patient tells me that she continues to feel better. She is still having some shortness of breath and there is some residual cough, but she is significantly better than she was two days before. Denies chest pain, fevers, chills, nausea, vomiting, or diarrhea. OBJECTIVE: VITAL SIGNS: Temperature 97.2 afebrile, maximum temperature (T-max) 97.9, pulse 99, respiratory rate 18, blood pressure 127/63, oxygen saturation 93% on two liters, when I take it off on room air she remains 93%. Upon up and ambulating, she is able to walk 20 feet before she begins to desaturate to 86% on room air. GENERAL: She is a frail, female who appears older than her stated age. She is sitting in the reclinder. She is accompanied by her . The patient does not appear to be in any acute distress. HEENT: Moist mucous membranes. No elevation of central venous pressure (CVP). CARDIOVASCULAR EXAMINATION: S1, S2, regular, mildly tachycardic. RESPIRATORY EXAMINATION: Scattered rales. ABDOMINAL EXAMINATION: Benign. EXTREMITIES: No clubbing, cyanosis, or edema. LABORATORY STUDIES: WBC 18.4, hemoglobin 10.1, platelet count 164, ESR 66 down from 83. Chemistry panel: Sodium 141, potassium 3.4 repleted, chloride 104, bicarbonate 29, BUN 11, creatinine 0.7, magnesium 1.8 repleted. BNP is 529. Microbiology: Blood cultures are negative at 48 hours. Respiratory viral PCR panel is negative. A MRSA screen of the nares is negative. No new imaging. ASSESSMENT AND PLAN: This is a 61-year-old female with fever and shortness of breath. PROBLEM LIST: 1. Fever and shortness of breath. I have had the chance to discuss the case with Dr. Schaefer and Dr. Leslie Hathaway today. Based on the most recent CT scan, there was a small area of necrosis which could be possible tumor necrosis versus abscess. She did describe a possible aspiration event. At this time, her cultures have all remained negative. We will transition her from broad-spectrum vancomycin and Zosyn to Augmentin for a six-week course as per Dr. Schaefer's recommendations with outpatient followup, potentially in the pulmonary clinic where he has seen her previously. 2. There is the possibility of worsening cancer. It does not appear so based on her CT scan but Dr. Leslie Hathaway is concerned about the patient. She did receive a cycle of chemotherapy and we are currently waiting to see her response. The patient and I had a lengthy conversation about her goals of care today. She does appear to be less optimistic than she initially was when she presented to the emergency room and did hear about hospice today. She is not prepared to make any final decisions. She would like to be discharged from the hospital when medically stable and have followup with Dr. Hathaway and continue chemotherapy, but should it fail, at that point, she may consider hospice she informs me. There does not appear to be any evidence of postobstructive pneumonia process. 3. Medication adverse effects. The patient was recently on Keytruda and recently started new chemotherapy. She was also on methotrexate. Although I feel that it is less likely, she has been treated with empiric Solu-Medrol and with antibiotics, and on this regimen, she does appear to be improving. Tomorrow, I will wean her to prednisone by mouth. 4. The patient has some baseline respiratory status compromise, status post lobectomy and also obstructive lung disease which we are treating bronchodilators and steroids. 5. Aspiration. She describes an aspiration event. However, a cookie swallow this afternoon does not demonstrate any aspiration events, and as such, speech is recommending a regular diet with regular liquids. I will advance her. 6. Coronary artery disease with diastolic congestive heart failure previously documented. She is on an aspirin and a statin. She is intolerant to beta blockers given her current respiratory state. She presented with a normal brain natriuretic peptide (BNP). However, she did receive significant fluid resuscitation in the emergency room (ER) and has received blood. Given her that her BNP is elevated today, I will diurese her with IV Lasix and see if this improves her respiratory status as well. 7. Depression. Continue with Wellbutrin and Prozac. 8. Insomnia. Continue with Ativan at bedtime. 9. Lung cancer, stage IV, with metastasis to the bone. She follows closely with Dr. Leslie Hathaway. She is on pain medication and antiemetics. She will followup with Dr. Leslie Hathaway closely upon discharge potentially as early as tomorrow. 10. Rheumatoid arthritis. She is on B12 and folate. We are holding her methotrexate. 11. Gastroesophageal reflux disease. She is on omeprazole. 12. Anemia, symptomatic, possibly related to her chemotherapy and immunotherapy. At this time, she is status post transfusion of two units and did feel better. 13. Deep vein thrombosis (DVT) prophylaxis. She is on Lovenox. DISPOSITION: Her prognosis appears guarded at best. She is currently a FULL CODE. She has been cleared by physical therapy. If she is up and ambulating and feeling better tomorrow, she can potentially be discharged home with close followup with oncology.
--- NOTE | 2016-12-11 16:42 | REP ---
Clinical: Dysphasia. Technique: Real time fluoroscopic evaluation in conjunction with speech pathology. Findings: Examination demonstrates normal deglutition and peristalsis through the oropharynx and visualized upper esophagus. Minimal penetration was noted during thin liquid portion of examination. No evidence for michael aspiration and the remainder of the examination was normal. Surrounding soft tissues and osseous structures are normal. Total fluoroscopic time 1 minute 29 seconds . Impression: Minimal penetration on thin liquids. Otherwise normal modified barium swallow examination. Signed by Matheus Rawls MD 12/11/2016 04:34 P
[2016-12-11 20:20] VITALS: BP 108/56
[2016-12-11] MEDS: LORazepam 1 MG TAB PO SCH (20:46)
[2016-12-11] MEDS: PRAVASTATIN 20 MG TAB PO SCH (20:46)
[2016-12-12] MEDS: methylPREDNISolone INJ 125 MG/2 ML VIAL (J2930) IV SCH ×2 (02:33→08:42)
[2016-12-12 05:38] VITALS: BP 146/69
[2016-12-12 06:43] LABS: MEAN CORPUSCULAR HEMOGLOBIN 29.3 pg (27.0-33.0); MEAN CORPUSCULAR HGB CONC 32.2 g/dl (32.0-36.5); MEAN CORPUSCULAR VOLUME 90.9 fl (80.0-96.0); RED CELL DISTRIBUTION WIDTH 16.8 % (11.5-14.5); WHITE BLOOD COUNT 22.4 K/mm3 (4.0-10.0)
[2016-12-12 06:54] LABS: ANION GAP 8 MEQ/L (8-16); BLOOD UREA NITROGEN 21 MG/DL (7-18); CALCIUM LEVEL 8.7 MG/DL (8.5-10.1); CARBON DIOXIDE LEVEL 29 MEQ/L (21-32); CHLORIDE LEVEL 109 MEQ/L (98-107); CREATININE FOR GFR 0.77 MG/DL (0.55-1.02); GLOMERULAR FILTRATION RATE > 60.0 (>51); GLUCOSE, FASTING 117 MG/DL (70-105); POTASSIUM SERUM 3.6 MEQ/L (3.5-5.1); SODIUM LEVEL 146 MEQ/L (136-145)
[2016-12-12] MEDS: SYMBICORT 160/4.5MCG INHALER 6GM INH SCH (07:24)
[2016-12-12] MEDS: LEVALBUTEROL 1.25 MG/0.5 ML CONCENTRATE NEB INH SCH ×2 (07:25→11:08)
[2016-12-12] MEDS: LORazepam 1 MG TAB PO PRN (08:06)
[2016-12-12 08:14] VITALS: BP 134/65
[2016-12-12] MEDS ORDERED: predniSONE 20 MG TAB PO SCH (09:00)
[2016-12-12] MEDS: FLUoxetine 20 MG CAP PO SCH (09:04)
[2016-12-12] MEDS: FOLIC ACID 1 MG TAB PO SCH (09:04)
[2016-12-12] MEDS: ASCORBIC ACID 500 MG TAB PO SCH (09:04)
[2016-12-12] MEDS: CYANOCOBALAMIN 500 MCG TAB PO SCH (09:04)
[2016-12-12] MEDS: OMEPRAZOLE 20 MG CAP PO SCH (09:04)
[2016-12-12] MEDS: VITAMIN D 1,000 INTERNATIONAL UNITS TABLET PO SCH (09:05)
[2016-12-12] MEDS: AUGMENTIN 875 MG TAB PO SCH (09:05)
[2016-12-12] MEDS: buPROPion **XL** TABLET 150MG (WELLBUTRIN XL) PO SCH (09:05)
[2016-12-12] MEDS: ASPIRIN 81 MG ENTERIC TAB PO SCH (09:05)
[2016-12-12] MEDS: PRASUGREL 5 MG PO SCH (09:06)
[2016-12-12] MEDS: ENOXAPARIN 40 MG/0.4 ML SYRINGE (J1650) SC SCH (09:07)
[2016-12-12] MEDS ORDERED: AMOX875T2 PO (09:55)
[2016-12-12] MEDS ORDERED: PRED10TA2 PO (09:55)
[2016-12-13] MEDS ORDERED: NITR4TASL SL (06:35)
[2016-12-13] MEDS ORDERED: LEVA0.636 INH (06:35)
[2016-12-13] MEDS ORDERED: AUGM875T28 PO (06:35)
[2016-12-13] MEDS ORDERED: META1TAB22 PO (06:35)
[2016-12-13] MEDS ORDERED: PRED10TA2 PO (06:35)
[2016-12-13] MEDS ORDERED: CALC1TAB30 PO (06:35)
--- NOTE | 2016-12-13 15:09 | DSES ---
DATE OF ADMISSION: 12/09/2016 DATE OF DISCHARGE: 12/12/2016 DISCHARGE DIAGNOSIS: Shortness of breath. SECONDARY DIAGNOSES: Pneumonia. Fevers. Coronary artery systolic congestive heart failure. Symptomatic anemia. Depression. Insomnia. Stage IV lung cancer, non-small cell. Rheumatoid arthritis. Gastroesophageal reflux disease. HOSPITAL COURSE: The patient is an unfortunate 61-year-old female who was recently discharged who presented to the hospital shortly after being discharged with recurrence of fever and shortness of breath. She had undergone a port placement by Dr. Shelley the day the prior to admission and tolerated the procedure well. A CT scan in the ER revealed an area of necrosis in the lung that was very small. Patient was admitted to the medical/surgical floor. Dr. Schaefer was able to review the images, and I discussed the case with him as he had seen the patient previously as well as Dr. Leslie Hathaway who is her oncologist. Patient recently had been hospitalized and there was concern for pneumonia versus medication adverse affect versus pulmonary edema. At that time, there was a thought that Keytruda may have been the inflicting medication versus methotrexate. She improved and was discharged home requiring oxygen only with ambulation. However, when she completed her antibiotics, she began once again to spike fevers. There was a concern during this stay that area of necrosis might represent an abscess versus dying tumor and that a more prolonged course of antibiotics may be beneficial. Dr. Schaefer suggested Augmentin twice a day for 6-week course, which was initiated here. She was initially on broad-spectrum antibiotics for healthcare-associated pneumonia; however, her cultures all remained negative and antibiotics were narrowed. There was also concern for aspiration during the stay; however, it seemed less likely as she had a normal esophagram. At the present time, the patient is improving. She is once again requiring oxygen only while ambulating. She is feeling better than when she presented and is eager to go home. OBJECTIVE: VITAL SIGNS: Temperature 98.4, pulse 94, respiratory rate 16, blood pressure 134/65, oxygen saturation 93% on room air while I am in the room examining her. HEENT: She has some bitemporal wasting. Moist mucous membranes. No elevation of central venous pressure (CVP). CARDIOVASCULAR EXAM: S1, S2. She is not tachycardic. RESPIRATORY EXAM: She is actually quite clear. I do not appreciate any wheezing. ABDOMINAL EXAM: Is benign. EXTREMITIES: Are a little mildly wasted. LABORATORY STUDIES: WBC 22.4, hemoglobin 10.7, platelet count 191. Chemistry panel: Sodium 146, potassium 3.6, chloride 109, bicarbonate 29, BUN 21, creatinine 0.7. Microbiology is all negative. MRSA screen is negative. Respiratory PCR panel is negative. She received 2 units of packed red blood cells (PRBCs) during her stay. IMAGING: She had an esophagram that revealed minimal penetration on thin liquids; otherwise, normal modified barium swallow exam. She did have a CT scan of the chest, which is outlined above. Revealed bilateral pleural effusions, left greater than right, scattered subtle alveolar infiltrates, diffuse chronic changes, an area of consolidation in the posterior left lobe may have a small central necrotic fluid component measuring 15 mm. ASSESSMENT AND PLAN: This is an unfortunate 61-year-old female with stage IV metastatic non-small cell lung cancer who presented with fever and shortness of breath. PROBLEMS: 1. Fever and shortness of breath. There was suspicion for persistent pneumonia versus abscess versus tumor necrosis. The patient was initially on Zosyn and vancomycin; however, cultures have all been negative. Her fever did quickly defervesce once we started her on antibiotics. I suspect this was the primary source of her symptoms, and she continues to improve every day. At this time, we will narrow spectrum to Augmentin and complete a 6-week course as per Dr. Schaefer's recommendation for a possible abscess. 2. Possibility of worsening cancer. It does not appear so based on her CT scan, but this is certainly a possibility and Dr. Leslie Hathaway was concerned of this also. There was no evidence of any postobstructive pneumonia. Patient did receive her first round of chemotherapy after being intolerant to immunotherapy. We are waiting to see her response, and likely over the next 2-week period will be highly suggestive of whether or not she will improve or continue her decline she has experienced for the last several months. We did have a lengthy discussion regarding goals of care, hospice. At this time, she is not ready for this, which is understandable, and would like to see how the next 2 weeks go and if she is able to tolerate more chemotherapy, which is very reasonable. I did discuss this at length with Dr. Leslie Hathaway as well. 3. Medication adverse affect. Her diffuse scattered alveolar infiltrates are also considered to be possibly related to Keytruda use versus methotrexate. I feel this is less likely related to methotrexate. At this time, I will transition to her prednisone by mouth and have her continue with taper until followup with Dr. Leslie Hathaway, where she will restart Decadron for her next round of chemotherapy. 4. Asthma. The patient does have baseline obstructive disease and is status post lobectomy for her first bout of lung cancer in 2002. She is on bronchodilators and steroids. 5. Aspiration. There was concern initially that she may have been aspirating; however, her esophagram was fairly normal and she is on a regular diet. 6. Coronary artery disease/congestive heart failure previously documented. During her stay, she was quite euvolemic. She did receive IV Lasix following blood transfusion. She does not appear to be fluid overloaded or pulmonary edema. She is on aspirin and statin. No beta-graciela secondary to her respiratory status. 7. Depression. Continue with Wellbutrin and Prozac. 8. Insomnia. Continue with Ativan at bedtime. 9. Rheumatoid arthritis. She is on B12 and folate. She can likely resume her methotrexate. 10. Gastroesophageal reflux disease. Continue omeprazole. 11. Symptomatic anemia. Possibly related to her recent chemotherapy, immunotherapy. She did feel improved after receiving 2 units of PRBCs. 12. Deep venous thrombosis (DVT) prophylaxis. She has been on Lovenox while in the hospital. DISPOSITION: The patient is being discharged home to the care of her family. She had been cleared by physical therapy. She is essentially at her functional baseline. She is to followup with Dr. Hernandez's office in 1 week and followup with Dr. Leslie Hathaway within 7 days. Her activity and diet are as prior to admission. She is to return to the ER if her symptoms worsen. MEDICATIONS AT THE TIME OF DISCHARGE: - amoxicillin/clavulanic acid 875/125 one tablet twice a day, 84 tablets - prednisone 40 for 3 days, 30 mg for 3 days, 20 mg for 3 days, 10 mg for 3 days, then stop - Ventolin HFA two puffs inhaled four times daily as needed for shortness of breath - albuterol sulfate 2.5 mg four times daily as needed for shortness of breath nebulizer - ascorbic acid 500 mg as per the patient - aspirin 81 mg daily - biotin as per the patient - Symbicort 160/4.5 two puffs inhaled twice a day - bupropion extended release 300 mg daily - calcium 600 mg daily - vitamin D3, 2000 units daily - clotrimazole topically as needed - vitamin B12, 500 mcg daily - dexamethasone 4 mg twice a day (start before next chemotherapy round 12/20/2016) - fluoxetine 60 mg daily - folic acid 1 mg daily - lorazepam 1 mg at bedtime - omeprazole 40 mg daily - Zofran 8 mg every 6 hours as needed for nausea or vomiting - oxycodone 5 mg four times daily as needed for pain - Effient 5 mg daily - pravastatin 40 mg nightly - prochlorperazine 10 mg every 8 hours as needed for nausea or vomiting - rizatriptan 10 mg as needed for migraines - sumatriptan 25 mg as needed for migraines - Treximet 10-60 one tablet as directed for migraines Greater than 30 minutes spent organizing disposition.
== END 2016-12-12 11:59 | disposition home or self-care (01) | DRG 140 ==
LOC: M ED 05:21 → M ED INP 10:42 → M MSPAV 13:31
PROVIDERS: ADMIT Internal Medicine; ATTEND Internal Medicine
DX: J44.0 Chronic obstructive pulmonary disease with (acute) lower respiratory infection (principal); J18.9 Pneumonia, unspecified organism; C79.51 Secondary malignant neoplasm of bone; I50.30 Unspecified diastolic (congestive) heart failure; C34.90 Malignant neoplasm of unspecified part of unspecified bronchus or lung; D64.81 Anemia due to antineoplastic chemotherapy; K21.9 Gastro-esophageal reflux disease without esophagitis; G47.00 Insomnia, unspecified; F32.9 Major depressive disorder, single episode, unspecified; I25.10 Atherosclerotic heart disease of native coronary artery without angina pectoris; M06.9 Rheumatoid arthritis, unspecified; Z79.899 Other long term (current) drug therapy; Z79.82 Long term (current) use of aspirin; Z79.52 Long term (current) use of systemic steroids; Z87.891 Personal history of nicotine dependence

== ENCOUNTER 2016-12-13 03:55 | Inpatient (IN) | payer BC ==
[2016-12-13] VITALS (18 sets, daily range): BP systolic 102–119; BP diastolic 50–64; O2SAT 97–98
[~2016-12-13] VITALS: Ht 157.5 cm; Wt 55.2 kg
[~2016-12-13 03:55] MED LIST changes: +AMOX875T2 PO; +CLOT1CRE TOP; +DEXA4TA PO; +ONDA8TAB7 PO; +PRED20TA PO; +PROC10TA PO; +RIZA10TA4 PO; +SUMA25TA3 PO
[2016-12-13 04:16] LABS: ABG BASE EXCESS -0.4 (-2.0-2.0); ABG HCO3 25.3 MEQ/L (22.0-26.0); ABG PARTIAL PRESSURE O2 132.5 mmHg (75.0-100.0); ABG STANDARD HCO3 24.2 MEQ/L (22.0-26.0); ABG TOTAL CO2 26.8 MEQ/L (22.0-29.0); ABG pH (ARTERIAL) 7.359 UNITS (7.350-7.450)
[2016-12-13 04:26] LABS: ADD MANUAL DIFFER YES; DIFF SLIDE NUMBER 106; MEAN CORPUSCULAR HEMOGLOBIN 29.5 pg (27.0-33.0); MEAN CORPUSCULAR HGB CONC 32.2 g/dl (32.0-36.5); MEAN CORPUSCULAR VOLUME 91.7 fl (80.0-96.0); PLATELET COUNT, AUTOMATED 251 k/mm3 (150-450); RED CELL DISTRIBUTION WIDTH 16.5 % (11.5-14.5)
[2016-12-13 04:50] LABS: WHITE BLOOD COUNT 43.9 K/mm3 (4.0-10.0)
[2016-12-13 04:56] LABS: BANDS 5 % (< 11); NUCLEATED RED BLOOD CELL 1 % (0-0)
[2016-12-13 04:59] LABS: ANISOCYTOSIS 1+
[2016-12-13 05:24] LABS: ALBUMIN 2.4 GM/DL (3.2-5.2); ALBUMIN/GLOBULIN RATIO 0.71 (1.00-1.93); ALKALINE PHOSPHATASE 137 U/L (45-117); ALT/SGPT 27 U/L (12-78); ANION GAP 11 MEQ/L (8-16); AST/SGOT 28 U/L (15-37); BILIRUBIN,DIRECT < 0.1 MG/DL (0.0-0.2); BILIRUBIN,TOTAL 0.2 MG/DL (0.2-1.0); BLOOD UREA NITROGEN 27 MG/DL (7-18); CALCIUM LEVEL 8.6 MG/DL (8.5-10.1); CARBON DIOXIDE LEVEL 26 MEQ/L (21-32); CHLORIDE LEVEL 110 MEQ/L (98-107); CREATININE FOR GFR 0.78 MG/DL (0.55-1.02); GLOMERULAR FILTRATION RATE > 60.0 (>51); GLUCOSE, FASTING 174 MG/DL (70-105); POTASSIUM SERUM 3.9 MEQ/L (3.5-5.1); SODIUM LEVEL 147 MEQ/L (136-145); TOTAL PROTEIN 5.8 GM/DL (6.4-8.2)
[2016-12-13 05:39] LABS: INR 1.05
--- NOTE | 2016-12-13 05:42 | REPUSA ---
CLINICAL HISTORY: Followup exam. COMMENTS: Comparison to the prior exam performed on 11/09/2016. Mild decrease in multiple loculated small left pleural effusion. Mild decrease in right pleural effusion. Unchanged cardiac silhouette. Unchanged bilateral perihilar spiculated pulmonary consolidations. Right Port-A-Cath is in good position with its tip in the superior vena cava. IMPRESSION: Unchanged bilateral spiculated pulmonary consolidations. Decreased pleural effusions. Thank you for your kind referral of this patient.
[2016-12-13] MEDS ORDERED: FUROSEMIDE 40 MG/4 ML VIAL (J1940) IV ONE (05:45)
[2016-12-13] MEDS ORDERED: VANCOMYCIN HCL 1,000 MG, VIAL MATE ADAPTER 1 EACH in D5W 250 ML IV ONE (05:45)
[2016-12-13] MEDS ORDERED: PIPERACILLIN/TAZOBACTAM SOD 3.375 GM in D5W MINI-BAG PLUS 50 ML IV ONE (05:45)
[2016-12-13] MEDS ORDERED: CALC1TAB30 PO (06:35)
[2016-12-13] MEDS ORDERED: LEVA0.636 INH (06:35)
[2016-12-13] MEDS ORDERED: META1TAB22 PO (06:35)
[2016-12-13] MEDS ORDERED: NITR4TASL SL (06:35)
[2016-12-13] MEDS ORDERED: AUGM875T28 PO (06:35)
[2016-12-13] MEDS ORDERED: PRED10TA2 PO (06:35)
[2016-12-13 07:03] LABS: ERYTHROCYTE SEDIMENTATION RATE 57 mm/hr (0-30)
[2016-12-13] MEDS ORDERED: ISOVUE-370 76% 100ML VIAL (Q9967) As Ordered ONE (07:32)
[2016-12-13] MEDS ORDERED: PROCHLORPERAZINE 5 MG TAB (S0183) PO PRN (07:45)
[2016-12-13] MEDS ORDERED: LEVALBUTEROL 1.25 MG/0.5 ML CONCENTRATE NEB INH PRN (07:45)
[2016-12-13] MEDS ORDERED: ONDANSETRON 4 MG TAB (S0181) PO PRN (07:45)
[2016-12-13] MEDS ORDERED: CLOTRIMAZOLE 1% TOPICAL CREAM 30GM TOP PRN (07:45)
--- NOTE | 2016-12-13 08:00 | REPUSA ---
CLINICAL HISTORY: Respiratory failure. TECHNIQUE: Multiple axial CT images were obtained through the thorax without IV contrast material. COMMENTS: Comparison is made to the prior exam performed on 12/09/2016. Unchanged small bilateral pleural effusions. Unchanged basilar atelectatic airspace disease of the lower lobes. Again are noted the changes from prior lobectomy with associated traction bronchiectasis and right pe rihilar scarring/soft tissue thickening. Interval appearance of diffuse groundglass densities of the lungs more prominent in the left upper lo be and bilateral lower lobes. Right Port-A-Cath is in good position with its tip in the superior vena cava. IMPRESSION: Unchanged small bilateral pleural effusions. The appearance of diffuse bilateral groundglass densities of the lungs. Infectious/inflammatory patho logy is suspected. Unchanged right lobectomy and right perihilar soft tissue thickening with scarring. Unchanged traction bronchiectasis in the right lung. Thank you for your kind referral of this patient.
--- NOTE | 2016-12-13 08:08 | REP ---
Clinical: Hypoxia . Technique: Axial contrast enhanced images from the thoracic inlet to the upper abdomen using 100 ml Isovue 370 intravenous contrast material with multiplanar re-formations. Comparison: 12/09/2016 Findings: Satisfactory enhancement of the pulmonary vasculature is achieved and no filling defects are identified to suggest pulmonary embolus. The lung bone demonstrate moderate to significant scattered bilateral alveolar infiltrates along with small bilateral pleural effusions and associated passive atelectasis (left greater than right). Underlying postsurgical, post-therapeutic, and chronic interstitial changes are appreciated including bronchiectasis, evidence for prior partial right lobectomy, and post radiation changes involving the paramediastinal and right posterior parenchyma. Mediastinum demonstrates atherosclerotic changes to the thoracic aorta and coronary arteries without cardiomegaly, pericardial effusion or aortic aneurysm. Surrounding musculoskeletal structures demonstrate degenerative changes. Impression: 1. No evidence for pulmonary embolus. 2. Moderate to significant bilateral alveolar infiltrates suggesting multifocal pneumonia with pleural effusions and passive basilar atelectasis. 3. Chronic stable changes. Signed by Matheus Rawls MD 12/13/2016 08:00 A
[2016-12-13] MEDS: SYMBICORT 160/4.5MCG INHALER 6GM INH SCH ×2 (09:00→20:07)
[2016-12-13] MEDS: HEPARIN SOD (PORCINE) 5000 UNITS/ML VIAL SC SCH ×3 (09:10→21:34)
[2016-12-13] MEDS: ASPIRIN 81 MG ENTERIC TAB PO SCH (09:10)
[2016-12-13] MEDS: FLUoxetine 20 MG CAP PO SCH (09:11)
[2016-12-13] MEDS: OMEPRAZOLE 20 MG CAP PO SCH (09:11)
[2016-12-13] MEDS: CYANOCOBALAMIN 500 MCG TAB PO SCH (09:11)
[2016-12-13] MEDS: FOLIC ACID 1 MG TAB PO SCH (09:11)
[2016-12-13] MEDS: VITAMIN D 1,000 INTERNATIONAL UNITS TABLET PO SCH (09:12)
[2016-12-13] MEDS: buPROPion **XL** TABLET 150MG (WELLBUTRIN XL) PO SCH (09:14)
[2016-12-13] MEDS: ASCORBIC ACID 500 MG TAB PO SCH (09:15)
--- NOTE | 2016-12-13 09:33 | HPE ---
DATE OF ADMISSION: 12/13/2016 PRIMARY CARE PROVIDER: Lakeshia Hernandez MD ONCOLOGIST: Dr. Leslie Hathaway SUPERVISOR CLOTH WINDING: Dr. Stoelo/Dr. Schaefer HISTORY OF PRESENT ILLNESS: Patient is a 61-year-old female with a past medical history significant for recurrent non-small cell lung cancer, ST-segment elevation myocardial infarction (STEMI) status post stent, rheumatoid arthritis, asthma, anxiety/depression, dyslipidemia, chronic obstructive pulmonary disease (COPD), reflux disease, who presented to [facility] on 12/13/2016 early in the morning for acute worsening of shortness of breath. The patient did have a history of non-small cell lung cancer at the right upper lobe. The patient had a right lobectomy, chemotherapy, and radiation in 2001. The patient was informed about the recurrence of the lung cancer this year. The patient was started on Keytruda. Shortly after the chemotherapy, the patient had acute hypoxic respiratory failure and the patient was hospitalized from November 09, 2016 through November 20, 2016. At the time of discharge, the patient required use of oxygen intermittently. However, later on December 09, the patient was readmitted to [facility] for fever with respiratory failure and there was concern for healthcare associated pneumonia and/or aspiration pneumonia. The patient was placed on broad spectrum antibiotics. Due to concern for cancer progression, oncology Dr. Leslie Hathaway and engineering aide Dr. Schaefer were consulted. The patient's symptoms started to improve slowly and the patient was discharged home on December 12, 2016 with home oxygen. The plan was to reevaluate patient on December 21 for restarting chemotherapy. However, after the patient got home, she started having acute worsening of shortness of breath at approximately 2:00 a.m. this morning. The patient was also noted to have increasing anxiety. Patient's significant other increased the oxygen supply and did not help with the patient's symptoms. He gave the patient lorazepam and oxycodone and prednisone. The patient continued to have acute deterioration of her condition and the patient was brought to [facility] for further evaluation. The patient denies any fevers or chills. However, the patient did have profuse sweats during those acute episodes. When the patient arrived to the emergency room, the patient was found to have acute on chronic respiratory failure and required BiPAP. The hospitalist team was called for admission. ALLERGIES: 1. SULFA. PAST MEDICAL HISTORY: Non-small cell lung cancer status post lobectomy, chemotherapy, and radiation in 2002, recurred in [address]. COPD[address]-segment elevation myocardial infarction (STEMI) status post stent. Dyslipidemia. Rheumatoid arthritis. Anxiety/depression. PAST SURGICAL HISTORY: Tubal ligation. Right lobectomy. SOCIAL HISTORY: Patient was a former smoker, quit many years ago. Denies alcohol use. Denies recreational drug use. Patient is a FULL CODE. HOME MEDICATIONS: - Ventolin two puff inhalation four times a day as needed - aspirin 81 mg by mouth daily - Symbicort two puff inhalation twice a day - bupropion 300 mg by mouth daily - vitamin D 2000 units by mouth daily - vitamin B12 500 mcg by mouth daily - dexamethasone 4 mg by mouth twice a day - fluoxetine 50 mg by mouth daily - folic acid 1 mg by mouth daily - lorazepam 1 mg by mouth at bedtime - omeprazole 20 mg by mouth daily - odansetron 8 mg by mouth every 6 hours as needed for nausea/vomiting - oxycodone 5 mg by mouth four times a day as needed - Effient 5 mg by mouth daily - pravastatin 40 mg by mouth at bedtime - rizatriptan 10 mg by mouth as needed for migraines - Treximet 10-60 mg one tablet by mouth as needed for migraines OBJECTIVE: VITAL SIGNS: Temperature 97.5, pulse is 123, respirations 30, blood pressure is 122/58, pulse oximetry 98% on BiPAP. GENERAL: Moderate distress secondary to respiratory distress. Alert and oriented times three. HEENT: Normocephalic, atraumatic. Extraocular motors grossly intact. CARDIOVASCULAR: Tachycardic, positive S1 and S2. LUNGS: Positive crackles bilaterally, most significant in the lower base. I cannot appreciate any significant wheezes. ABDOMEN: Soft, nontender, nondistended. Bowel sounds present. EXTREMITIES: No edema. No signs of cyanosis. LABORATORY DATA: WBC 43.9, hemoglobin 11.6, hematocrit 36, platelet count 251. Sodium is 147, potassium is 3.9, chloride is 110, carbon dioxide is 26, BUN 27, creatinine 0.798, GFR greater than 60, fasting glucose 174, calcium 8.6, total bilirubin 0.2, direct bilirubin is less than 0.11, AST 28, ALT 27, alkaline phosphatase 137, total CK is 55, Troponin I is 0.39, C-reactive protein 3.46, BNP is 569, total protein 5.8, albumin 2.4, TSH 1.97, free T4 is 0.9. ASSESSMENT/PLAN: 1. Acute respiratory failure. Patient was admitted to the ICU under inpatient status. Currently the patient requires BiPAP to maintain satisfactory oxygen saturation. We will follow with a CT angiogram. The patient did have a history of aspiration or hospital acquired pneumonia. The patient did have an increased white count and empirically will cover the patient with broad spectrum antibiotics. Other differential included for the patient's respiratory failure include progressive worsening of the non-small cell lung cancer. The patient's oncologist, Dr. Leslie Hathaway has been contacted and consulted. The patient may benefit from continuous BiPAP. Consider consulting engineering aide, Dr. Schaefer. 2. Leukocytosis. Patient presented with a white count of 43.9, currently patient is covered with broad spectrum antibiotics. Differential for leukocytosis includes uncontrolled cancer processes, versus infectious processes , versus recent medication changes. 3. Diastolic congestive heart failure (CHF) exacerbation. Patient has an elevated BNP. During physical exam, the patient did present with crackles. Due to pleural effusion and the patient received one dose of Lasix in the emergency room. Will follow input and output. 4. Coronary artery disease on aspirin. 5. Depression. Continue home medications. 6. Insomnia. 7. History of rheumatoid arthritis. Patient has a history of taking methotrexate. Patient is on B12 and folic acid. 8. Gastroesophageal reflux disease (GERD) on omeprazole. 9. Anemia. 10. History of non-small cell cancer status post right lobectomy, chemotherapy and radiation in 2001, recurred in 2017. On[address] Leslie Hathaway has been consulted. We appreciate her assistance. 11. History of ST-elevation myocardial infarction (STEMI) status post stent. Continue pravastatin, aspirin and Effient. 12. Dyslipidemia on statin. 13. Deep vein thrombosis (DVT) prophylaxis with heparin. MTDD
[2016-12-13] MEDS ORDERED: ONDANSETRON 4MG/2ML VIAL (J2405) IV PRN (10:15)
--- NOTE | 2016-12-13 10:37 | IPN ---
DATE OF SERVICE: 12/13/2016 Ms. Magana is seen in the intensive care unit. She is on bilateral positive airway pressure (BiPAP). She is not complaining of shortness of breath on BiPAP but has left-sided chest discomfort, which is pleuritic in nature. She has had some nausea. Temperature 97, pulse 132, respiratory rate 32, blood pressure 152/96, 96% on room air. Negative fluid balance of -300. Body mass index 22.4. She is awake, appropriately interactive. Having some difficulty talking with the mouth, appears uncomfortable. Neck is supple. Breathing is symmetrically diminished. I-to-E ratio is 1:4. There are upper airway sounds throughout. Heart is tachycardic, distant-sounding. Abdomen: Soft, doughy, nontender. There is no lower extremity edema. White cell count 43.9, hemoglobin 11.6, platelets 251. BUN 27, creatinine 0.78, sodium is 147. Repeat blood gases pending. CT angiogram is reviewed with attending sole layer hand. There is no evidence of pulmonary embolism (PE). Effusion when compared to last CT are unchanged. Area in the left base is unchanged. My assessment is as follows: This is a 61-year-old with hypoxic respiratory failure on bilateral positive airway pressure in the intensive care unit (ICU). The plan will be as follows: 1. Respiratory failure. Will repeat arterial blood gas (ABG). Likely, can adjust the settings. May benefit from continuous positive airway pressure (CPAP). 2. Infectious disease. The patient most likely has continuing hospital-acquired pneumonia with possible lung abscess versus empyema. The area on the CT scan does not show an area amenable to drainage. This will need to be followed serially. Will continue with broad-spectrum antibiotics for healthcare-associated pneumonia and monitor clinically. 3. The patient has nonsmall-cell lung cancer. Dr. Leslie Hathaway has been consulted. Concerns about the possibility of advancing disease versus therapeutic side effect. Will appreciate her input. 4. The patient has elevated brain natriuretic peptide (BNP), which is minimal. Did receive a dose of Lasix in the emergency room. Diastolic congestive heart failure would appear to be compensated. If anything, at this point, I would tend to give her more fluid rather than take fluid away. 5. The patient has a history of coronary artery disease. 6. The patient has insomnia. 7. The patient has rheumatoid arthritis. 8. The patient has a history of [id number] myocardial infarction (CA), status post stent. 9. The patient has dyslipidemia. On statin. 10. The patient's deep venous thrombosis (DVT) prophylaxis is subcutaneous heparin.
[2016-12-13 10:58] LABS: ABG BASE EXCESS 3.7 (-2.0-2.0); ABG HCO3 27.8 MEQ/L (22.0-26.0); ABG PARTIAL PRESSURE O2 82.7 mmHg (75.0-100.0); ABG STANDARD HCO3 27.8 MEQ/L (22.0-26.0)
[2016-12-13] MEDS ORDERED: SODIUM CHLORIDE 0.9% INJ 10 ML SYR IV PRN (11:15)
[2016-12-13] MEDS: PIPERACILLIN/TAZOBACTAM SOD 3.375 GM in D5W MINI-BAG PLUS 50 ML IV SCH ×3 (11:29→23:55)
[2016-12-13] MEDS: methylPREDNISolone INJ 125 MG/2 ML VIAL (J2930) IV SCH ×2 (11:29→18:14)
--- NOTE | 2016-12-13 16:01 | CR ---
DATE OF SERVICE: 12/13/2016 Raquel Ge DO, requested inpatient medical oncology consult for management recommendations regarding a new shortness of breath in a patient with established metastatic non-small cell lung carcinoma. Urvashi Magana is a 61-year-old woman with late (occurring 15 years after original diagnosis) metastatic recurrence of PDL-1 high adenocarcinoma of lung involving bone, skin, adrenal, and left lung/pleural-based lesions initially diagnosed in July 2006 after she presented with pneumonia and was found to have adrenal and lung lesions. Over the next few months, in the course of evaluation and workup, she developed bone metastases and subcutaneous skin nodules suspicious for metastases. On 11/09/2016, she began first-line palliative treatment with pembrolizumab (KEYTRUDA) and within the following 12 hours was hospitalized at [facility] for acute shortness of breath which later emerged as acute on chronic shortness of breath. She was treated with high-dose steroids, antibiotics, supplemental oxygen and recovered enough to discharge from hospital improved on steroids and gradually began a taper. On 11/30/2016, she started combination carboplatin/pemetrexed, standard palliative treatment for metastatic adenocarcinoma of the lung. She was deemed to have had a grade IV, life threatening reaction to pembrolizumab and therefore this drug was discontinued. Her hypoxic event following pembrolizumab was thought multifactorial, possibly a combination of underlying methotrexate associated pneumonitis, acute pneumonitis due to pembrolizumab, possibly infectious. She had a small left pleural effusion but not large enough to fully account for her symptoms. Prior to starting chemotherapy on 11/30/2016, a repeat chest CT was obtained after she complained of some shortness of breath. 11/18/2016 CT angio was negative for pulmonary embolism. There was no hilar or mediastinal adenopathy, her post right upper lobectomy surgical status from many years ago was seen. Bronchiectasis and partial collapse was seen in the right apex which was stable and a left pleural effusion posterolaterally and inferiorly in the left lung, thought possibly loculated was seen, similar versus 11/09/2016. Previously noted ground-glass opacities had improved. Today, Urvashi tells me she had a MediPort placed Sunday. Between then and 11/30/2016, when her chemotherapy happened, she has had no worsening of her shortness of breath symptoms and has continued to use supplemental oxygen at home with no need for increased amount. At about 03:00 a.m. in the morning of 12/13/2016, today, she abruptly awoke with shortness of breath. Her turned up her oxygen, she took an Ativan and an oxycodone, this did not help her symptoms and her shortness of breath progressed so she came to the emergency room. There she was noted to be significantly desaturated, and tachycardic, her reports room air saturations as low as in the 70s. Vital signs recorded in [facility] show 92% pulse oximetry on BiPap, I do not see non BiPap results. She has continued tachycardic but says overall she feels somewhat better. She was started on antibiotics and later in the morning high-dose steroids, currently on Medrol 60 mg IV every 8 hours. PERTINENT PAST MEDICAL HISTORY: As noted above. In addition, the patient has a long history of rheumatoid arthritis for which she has been treated with methotrexate, held since mid October, anxiety, COPD, CAD status post STEMI and stenting, original NSCLC diagnosis in 2001 status post right upper lobectomy followed by chemotherapy and radiation with recurrence in spring 2016. HOME MEDICATIONS: Have been reviewed. ALLERGIES: To SULFA. REVIEW OF SYSTEMS: In addition to pertinent positives and negatives above, Urvashi denies any drenching sweats or fevers, a prodrome of cough or hemoptysis leading up to her early-morning event, any new leg swelling or cramping, any new loss of appetite or unintended weight loss. Remainder of pertinent ROS is negative. PHYSICAL EXAMINATION: The patient is reclining in bed with a BiPap mask saying she feels more comfortable, visibly using accessory muscles but as the conversation progresses she appears to calm down somewhat and her respiratory rate goes from the 30s to the 20s. RESPIRATORY: Dry crackles bilaterally mid to lower lung bone. No dullness to percussion. No decreased breath sounds per se. CARDIAC: Tachycardiac. No murmur, no gallop, regular. ABDOMEN: Soft, nontender, nondistended without palpable mass or organomegaly. EXTREMITIES: No edema. SKIN: A previously palpable approximate 2 cm irregular subcutaneous nodule is felt in the right flank just above the pelvic rest and also in the left thigh. These do not appear diminished or increased. LABORATORY DATA: WBC 43, hemoglobin 11.6, hematocrit 36, platelets 251 elevated metamyelocytes, myelocytes, promyelocytes and nucleated RBCs, sedimentation rate 57, sodium 147, chloride 110. Remainder of electrolytes unremarkable. Calcium 8.6, normal LFTs, alkaline phosphatase 137, troponin was slight leak 0.39, BNP 569, albumin 2.4, TSH normal. IMPRESSION: Urvashi Magana is a 61-year-old woman with metastatic recurrence of PDL-1 high adenocarcinoma of lung 15 years after her original diagnosis of stage III disease for which she was treated with right upper lobectomy followed by chemotherapy and radiation. She is hospitalized now with acute shortness of breath. The second episode in approximately 2 months, 10 days into her first cycle of chemotherapy after developing a grade IV life threatening reaction to pembrolizumab (immunotherapy KEYTRUDA), thought to be a multifactorial pneumonitis type reaction. She had originally recovered on steroids and was on a long taper. The acute onset of her current symptoms is not typical of pneumonitis, but it follows a few days after recent placement of a MediPort which conceivably involve some stressor worsening her symptoms and in conjunction with tapering steroids. Urvashi's leukocytosis can fairly be attributed to having been on steroids but also the Neulasta she got 10/31/2016, which is a long-acting G-CSF, can often cause leukocytosis into the 30s and 40s. This also may be multifactorial, possibly also due to infection, it is unclear right now. Clinically she does not act severely infected. Current chest CT findings are negative for pulmonary embolism, show moderate to significant bilateral alveolar infiltrate suggesting multifocal pneumonia. This could also be recurrent pneumonitis. A sometimes very long course of high-dose steroids, typically prednisone 1 mg/kg per day, is needed to treat checkpoint inhibitor associated autoimmune pneumonitis. At the same time, as has been discussed informally, she may have a socked in infected effusion; the size of her pleural effusion is overall unchanged. It has been deemed too small to tap. There is no evidence of widespread progression of disease. PLAN/RECOMMENDATIONS: 1. Continue high-dose steroids. 2. Continue broad-spectrum antibiotics. 3. Continue C-PAP / BiPap, supplemental oxygen and supportive care. 4. If this is pneumonitis it should respond to high-dose steroids within several days. If on the other hand Urvashi decompensates, she may have a combination of infectious process versus progressive lung cancer, for example lymphangitic spread of disease, though the appearance on chest CT is not typical as it has a fairly uniform ground-glass appearance in the areas where there is ground-glass as opposed to the often streaky appearance of lymphangitic spread. 5. All of these possibilities were discussed with Urvashi today in the presence of her . She understands the precarious nature of her situation. I told her it would be a few days before we understood fully what was happening. The above was discussed with Dr. Guerrero. I will continue to follow intermittently. [facility] HOSPITALNawaf
[2016-12-13] MEDS: ALPRAZolam 0.25 MG TAB PO PRN (18:52)
[2016-12-13] MEDS: VANCOMYCIN HCL 1,000 MG, VIAL MATE ADAPTER 1 EACH in D5W 250 ML IV SCH (20:20)
[2016-12-13] MEDS ORDERED: LORazepam 1 MG TAB PO SCH (21:00)
[2016-12-13] MEDS: PRAVASTATIN 20 MG TAB PO SCH (21:34)
[2016-12-14] VITALS (17 sets, daily range): BP systolic 99–143; BP diastolic 54–69; O2SAT 94–99
[2016-12-14] MEDS: methylPREDNISolone INJ 125 MG/2 ML VIAL (J2930) IV SCH ×3 (02:45→18:36)
[2016-12-14] MEDS: ALPRAZolam 0.25 MG TAB PO PRN ×5 (03:28→21:37)
[2016-12-14 05:10] LABS: ADD MANUAL DIFFER YES; DIFF SLIDE NUMBER 75; MEAN CORPUSCULAR HEMOGLOBIN 29.1 pg (27.0-33.0); MEAN CORPUSCULAR HGB CONC 31.9 g/dl (32.0-36.5); MEAN CORPUSCULAR VOLUME 91.1 fl (80.0-96.0); PLATELET COUNT, AUTOMATED 188 k/mm3 (150-450); RED CELL DISTRIBUTION WIDTH 16.7 % (11.5-14.5)
[2016-12-14 05:11] LABS: WHITE BLOOD COUNT 31.5 K/mm3 (4.0-10.0)
[2016-12-14 05:38] LABS: ALBUMIN 2.3 GM/DL (3.2-5.2); ALBUMIN/GLOBULIN RATIO 0.72 (1.00-1.93); ALKALINE PHOSPHATASE 145 U/L (45-117); ALT/SGPT 32 U/L (12-78); ANION GAP 9 MEQ/L (8-16); AST/SGOT 31 U/L (15-37); BILIRUBIN,TOTAL 0.4 MG/DL (0.2-1.0); BLOOD UREA NITROGEN 25 MG/DL (7-18); CALCIUM LEVEL 8.6 MG/DL (8.5-10.1); CARBON DIOXIDE LEVEL 31 MEQ/L (21-32); CHLORIDE LEVEL 106 MEQ/L (98-107); CREATININE FOR GFR 0.65 MG/DL (0.55-1.02); GLOMERULAR FILTRATION RATE > 60.0 (>51); GLUCOSE, FASTING 135 MG/DL (70-105); MAGNESIUM LEVEL 2.2 MG/DL (1.8-2.4); POTASSIUM SERUM 3.4 MEQ/L (3.5-5.1); SODIUM LEVEL 146 MEQ/L (136-145); TOTAL PROTEIN 5.5 GM/DL (6.4-8.2)
[2016-12-14 05:54] LABS: BANDS 1 % (< 11); NUCLEATED RED BLOOD CELL 2 % (0-0)
[2016-12-14] MEDS: PIPERACILLIN/TAZOBACTAM SOD 3.375 GM in D5W MINI-BAG PLUS 50 ML IV SCH ×3 (05:55→17:46)
[2016-12-14] MEDS: HEPARIN SOD (PORCINE) 5000 UNITS/ML VIAL SC SCH ×3 (05:56→21:36)
[2016-12-14 05:57] LABS: ANISOCYTOSIS 1+
--- NOTE | 2016-12-14 07:37 | ECGEPIP ---
Stationary ECG Study [facility] - ED Test Date: 2016-12-13 Pat Name: CHICO NICHOLS Department: Room: - Gender: F Project Facilitator: jennifer : [id number] Requested By: KATHERINE Rodriguez Order Number: [id number] Reading MD: Isabel Daniels Measurements Intervals [place] Rate: 129 P: 5 MI: 88 QRS: 66 QRSD: 84 T: 88 QT: 332 QTc: 488 Interpretive Statements SINUS TACHYCARDIA WITH SHORT MI INTERVAL ABNORMAL RHYTHM ECG LOW VOLTAGE LIMB INCREASED RATE 12/10/16 Electronically Signed On 12-14-2016 7:37:18 EDT by Isabel Daniels
[2016-12-14] MEDS: SYMBICORT 160/4.5MCG INHALER 6GM INH SCH (07:40)
--- NOTE | 2016-12-14 08:20 | REP ---
Clinical: Hypoxia. Comparison: 12/13/2016 and 04:36 a.m. Findings: Bilateral pleuroparenchymal changes are relatively similar to prior examination and include bilateral infiltrates (left greater than right) and right pleural effusion along with underlying chronic interstitial changes. Kyyuoq-N-Keoi identified in the SVC remains stable. The cardiac silhouette and mediastinum are unchanged with underlying adenopathy suggested. Skeletal structures are intact. Impression: Bilateral pleuroparenchymal changes essentially unchanged. Signed by Matheus Rawls MD 12/14/2016 08:11 A
[2016-12-14] MEDS: VITAMIN D 1,000 INTERNATIONAL UNITS TABLET PO SCH (08:46)
[2016-12-14] MEDS: VANCOMYCIN HCL 1,000 MG, VIAL MATE ADAPTER 1 EACH in D5W 250 ML IV SCH ×2 (08:46→20:12)
[2016-12-14] MEDS: CYANOCOBALAMIN 500 MCG TAB PO SCH (08:47)
[2016-12-14] MEDS: ASCORBIC ACID 500 MG TAB PO SCH (08:47)
[2016-12-14] MEDS: OMEPRAZOLE 20 MG CAP PO SCH (08:47)
[2016-12-14] MEDS: ASPIRIN 81 MG ENTERIC TAB PO SCH (08:47)
[2016-12-14] MEDS: FLUoxetine 20 MG CAP PO SCH (08:47)
[2016-12-14] MEDS: FOLIC ACID 1 MG TAB PO SCH (08:47)
[2016-12-14] MEDS: buPROPion **XL** TABLET 150MG (WELLBUTRIN XL) PO SCH (08:48)
[2016-12-14] MEDS: oxyCODONE 5MG TAB PO PRN ×3 (08:54→21:37)
[2016-12-14] MEDS: SODIUM CHLORIDE 0.9% INJ 10 ML SYR IV SCH (09:00)
[2016-12-14] MEDS ORDERED: KCL 40MEQ IN D5/0.45NS 1000ML 1,000 ML IV SCH (10:00)
[2016-12-14] MEDS: LEVALBUTEROL 1.25 MG/0.5 ML CONCENTRATE NEB INH SCH ×3 (11:30→20:48)
--- NOTE | 2016-12-14 12:25 | IPN ---
DATE: 12/14/2016 Ms. Magana tolerated BiPAP last night. She is still short of breath but is not complaining of chest pain. She feels weak and tired. She is not particularly comfortable. Temperature is 96.8, pulse 105, respiratory rate 29, blood pressure 116/68, 88% on 30% FiO2. Input and output significant for a negative fluid balance of -445. No bowel movements noted. Body mass index is 22.7. She is awake, appropriately interactive. Slowly conversant with the BiPAP mask on. She is responding appropriately answering questions appropriately. Neck is supple. Breathing symmetrically. Diminished. There are coarse upper airway sounds throughout. No wheezes. No CVA tenderness. No sacral edema. Heart is in a regular and rhythm. Is tachycardic. Radial pulses 2+. Capillary refills less than 2 seconds. Abdomen is soft, nontender. There is no lower extremity edema. White count is 31.5, down from 43.9, hemoglobin 10, platelets 188. BUN 25, creatinine 0.65, sodium 146, potassium 3.4, trending downward. Yesterday troponins were trending downward to 0.88. Blood culture negative at 24 hours. Repeat chest x-ray today is unchanged essentially from yesterday. My assessment is as follows: This is a 61-year-old with hypoxic respiratory failure on BiPAP in the intensive care unit. Plan will be as follows: 1. Respiratory: The patient, at this point likely does not need BiPAP. Would benefit from CPAP or perhaps just oxygen supplementation. Will discuss with respiratory. Will attempt to wean the patient as deemed appropriate. I think it is likely that she will require further CPAP or BiPAP this evening. So she will be monitored in the intensive care unit. Nebulizer therapy has been ordered and she is on steroids. 2. Infectious disease: I am suspicious that the patient has hospital acquired pneumonia in the setting of possible lung abscess versus empyema and immunocompromise state from chemotherapy. Will continue broad-spectrum antibiotics. Await culture results. Will repeat CT scan tomorrow for the possibility of identifying an area of fluid collection amenable for drainage. 3. The patient has non-small cell lung cancer. I discussed this case by phone with Dr. Hathaway yesterday. Greatly appreciate her input. 4. The patient has diastolic heart failure which appears to be compensated. 5. The patient has hypernatremia and hypokalemia. The patient will be started on a short course of hypotonic saline with potassium. 6. The patient has insomnia: Does take Ativan at home to treat her insomnia and anxiety. I have ordered a dose of Xanax at a level that hopefully will not impair her ability to breath. 7. The patient has rheumatoid arthritis: The patient has a history of non-ST elevation myocardial infarction, status post stenting with elevated troponin during her stay. 8. The patient has dyslipidemia: On statin. 9. The patient has appropriate deep venous thrombosis prophylaxis.
[2016-12-14] MEDS: LEVALBUTEROL 1.25 MG/0.5 ML CONCENTRATE NEB INH PRN ×2 (18:15→23:22)
[2016-12-14] MEDS: PRAVASTATIN 20 MG TAB PO SCH (21:36)
[2016-12-15] VITALS (7 sets, daily range): BP systolic 104–144; BP diastolic 55–85
[2016-12-15] MEDS: methylPREDNISolone INJ 125 MG/2 ML VIAL (J2930) IV SCH ×3 (03:16→18:57)
[2016-12-15] MEDS: LEVALBUTEROL 1.25 MG/0.5 ML CONCENTRATE NEB INH PRN ×3 (03:25→23:23)
[2016-12-15] MEDS ORDERED: LORazepam 2 MG/ML VIAL (J2060) IV PRN (05:00)
[2016-12-15 05:04] LABS: ADD MANUAL DIFFER YES; DIFF SLIDE NUMBER 57; MEAN CORPUSCULAR HEMOGLOBIN 28.7 pg (27.0-33.0); MEAN CORPUSCULAR HGB CONC 30.6 g/dl (32.0-36.5); MEAN CORPUSCULAR VOLUME 93.6 fl (80.0-96.0); PLATELET COUNT, AUTOMATED 283 k/mm3 (150-450); RED CELL DISTRIBUTION WIDTH 16.7 % (11.5-14.5)
[2016-12-15] MEDS: PIPERACILLIN/TAZOBACTAM SOD 3.375 GM in D5W MINI-BAG PLUS 50 ML IV SCH ×5 (05:18→17:48)
[2016-12-15] MEDS: HEPARIN SOD (PORCINE) 5000 UNITS/ML VIAL SC SCH ×3 (05:18→21:49)
[2016-12-15 05:27] LABS: WHITE BLOOD COUNT 43.3 K/mm3 (4.0-10.0)
[2016-12-15 05:50] LABS: BANDS 2 % (< 11)
[2016-12-15 05:51] LABS: ANISOCYTOSIS 1+
[2016-12-15] MEDS: LEVALBUTEROL 1.25 MG/0.5 ML CONCENTRATE NEB INH SCH ×4 (07:13→19:30)
[2016-12-15] MEDS: VANCOMYCIN HCL 1,000 MG, VIAL MATE ADAPTER 1 EACH in D5W 250 ML IV SCH ×2 (08:39→20:54)
[2016-12-15] MEDS: ASCORBIC ACID 500 MG TAB PO SCH ×2 (08:40→09:00)
[2016-12-15] MEDS: FLUoxetine 20 MG CAP PO SCH (08:40)
[2016-12-15] MEDS: FOLIC ACID 1 MG TAB PO SCH ×2 (08:40→09:00)
[2016-12-15] MEDS: buPROPion **XL** TABLET 150MG (WELLBUTRIN XL) PO SCH (08:40)
[2016-12-15] MEDS: VITAMIN D 1,000 INTERNATIONAL UNITS TABLET PO SCH ×2 (08:40→09:00)
[2016-12-15] MEDS: OMEPRAZOLE 20 MG CAP PO SCH (08:40)
[2016-12-15] MEDS: CYANOCOBALAMIN 500 MCG TAB PO SCH ×2 (08:40→09:00)
[2016-12-15] MEDS: ASPIRIN 81 MG ENTERIC TAB PO SCH (08:41)
[2016-12-15] MEDS: SODIUM CHLORIDE 0.9% INJ 10 ML SYR IV SCH (08:41)
[2016-12-15 09:32] LABS: ABG pH (ARTERIAL) 7.425 UNITS (7.350-7.450)
[2016-12-15 09:33] LABS: ABG HCO3 26.6 MEQ/L (22.0-26.0); ABG PARTIAL PRESSURE CO2 41.4 mmHg (35.0-45.0); ABG PARTIAL PRESSURE O2 94.9 mmHg (75.0-100.0); ABG STANDARD HCO3 26.2 MEQ/L (22.0-26.0); ABG TOTAL CO2 27.8 MEQ/L (22.0-29.0)
--- NOTE | 2016-12-15 09:46 | REP ---
Clinical: Hypoxia. Technique: Portable semiupright view. Comparison: 12/14/2016. Findings: Chronic changes with superimposed bilateral opacities are similar to prior examination suggesting right lower lobe infiltrate/atelectasis and effusion as well as diffuse left-sided alveolar infiltrates. Findings are relatively similar to prior examination. The mediastinum and cardiac silhouette are stable. No cardiomegaly. Ryjhva-N-Tkrp identified with tip in the SVC. Skeletal structures are intact. Impression: Chronic bilateral pleuroparenchymal changes with superimposed infiltrates and possible effusions similar to prior examination. Signed by Matheus Rawls MD 12/15/2016 09:38 A
[2016-12-15 10:02] LABS: ALBUMIN 2.4 GM/DL (3.2-5.2); ALBUMIN/GLOBULIN RATIO 0.75 (1.00-1.93); ALKALINE PHOSPHATASE 133 U/L (45-117); ALT/SGPT 25 U/L (12-78); ANION GAP 8 MEQ/L (8-16); AST/SGOT 15 U/L (15-37); BILIRUBIN,TOTAL 0.4 MG/DL (0.2-1.0); BLOOD UREA NITROGEN 29 MG/DL (7-18); CALCIUM LEVEL 8.7 MG/DL (8.5-10.1); CARBON DIOXIDE LEVEL 32 MEQ/L (21-32); CHLORIDE LEVEL 105 MEQ/L (98-107); CREATININE FOR GFR 0.74 MG/DL (0.55-1.02); GLOMERULAR FILTRATION RATE > 60.0 (>51); GLUCOSE, FASTING 163 MG/DL (70-105); MAGNESIUM LEVEL 2.3 MG/DL (1.8-2.4); POTASSIUM SERUM 3.9 MEQ/L (3.5-5.1); SODIUM LEVEL 145 MEQ/L (136-145); TOTAL PROTEIN 5.6 GM/DL (6.4-8.2)
[2016-12-15] MEDS: LORazepam 2 MG/ML VIAL (J2060) IV PRN ×3 (11:14→19:59)
[2016-12-15] MEDS ORDERED: FUROSEMIDE 20 MG/2 ML VIAL (J1940) IV ONE (17:45)
--- NOTE | 2016-12-15 18:15 | IPN ---
DATE: 12/15/2016 Ms. Magana had a difficult night last evening. She was short of breath. She was quite anxious. It is unclear whether or not the anxiety or the shortness of breath came first. She did not have a restful evening. She is not complaining of any chest pain. Temperature is 97.7, pulse 129, respiratory rate 32, blood pressure 144/85, 97% on 60% FiO2. Input and output are notable for two bowel movements today. She is wearing her continuous positive airway pressure (CPAP) mask at the point of my evaluation. Sinuses are nontender. Neck is supple, thin. Breathing symmetrical with improved aeration perhaps compared to yesterday. Upper airway sounds throughout. No wheezes. Heart is tachycardic, regular and rhythm. Is tachycardic. Abdomen is soft, doughy, nontender. There is no significant lower extremity edema. LABORATORY DATA: Sodium is 145, BUN 29, creatinine 0.74. White cell count 43.3, hemoglobin 10.4, and platelets of 283. Blood gas on CPAP was 7.42, 41, 94, 26. Upon switching to BiPAP, she became much more comfortable. ASSESSMENT: This is a 61-year-old with hypoxic respiratory failure on continuous positive airway pressure (CPAP). PLAN: 1. Respiratory, The patient had done well yesterday off continuous positive airway pressure (CPAP) and has had some decline overnight. She was back on CPAP overnight and will be back on bilevel positive airway pressure (BiPAP) this morning. Gas shows that she is likely still hypoxic with no CO2 retention. I am unable to get a CT scan today as she is unable to lie flat. Chest x-ray does not show any worsening. I am suspicious that she has underlying pneumonic process. This evening, we will add cefepime to the mix for double coverage of pseudomonas. I feel it is unlikely that she has a pseudomonal pneumonia, although based on her recent contact with the healthcare setting, it is possible. She also quite possibly has lymphangitic spread of her cancer versus pneumonitis from chemotherapy. I have discussed this case in person with Dr. Leslie Hathaway. I greatly appreciate her consultation on this matter. 2. The patient has non-small cell lung cancer. 3. The patient has diastolic heart failure. She does appear to be compensated. We will give a dose of Lasix this evening to see if that is helpful. 4. The patient's hypokalemia has resolved. 5. The patient has insomnia and anxiety. We have put the patient back on Ativan which may be providing her some comfort. She is certainly not in withdrawal from that standpoint. I do wonder how much opiates she is taking at home. She is not taking a significant amount of opiates here. 6. The patient has rheumatoid arthritis. 7. The patient has a history of non-ST elevation myocardial infarction, status post stenting with elevated troponin during her stay. 8. The patient has dyslipidemia. She is on a statin. 9. The patient has a relatively poor prognosis based on the advanced stage of her cancer and her presentation.
--- NOTE | 2016-12-15 19:23 | IPN ---
DATE: 12/15/2016 SUBJECTIVE: Data reviewed, case discussed with Huber Guerrero as well. At the bedside today, Urvashi is still using continuous positive airway pressure (CPAP) but was able to go off CPAP and on to nasal cannula to speak for about 20 minutes. Overnight she has been stable with persistent leukocytosis, stable hypoxia requiring CPAP, no worsening, persistent ground-glass opacities diffusely involving the left lung on chest x-ray. She was unable to tolerate chest CT, being sought in order to establish whether there is an empyema-like loculated infectious process explaining some of her symptoms. Her antibiotics had been augmented with cefepime to cover for Pseudomonas and is now up broad with cefepime, vancomycin, piperacillin-tazobactam (pip-tazo). She is on high-dose methylprednisolone 60 mg intravenous (IV) every eight hours. She continues with mild to moderate tachycardia. Blood pressure is holding with systolic pressure between 120 and 140, pulse oximetry on CPAP up to 98%, and afebrile. Urvashi was accompanied by her and her [id number]. I raised the possibility findings on x-ray and her clinical situation involves carcinomatosis, lymphangitic spread of her cancer through the lungs in a kind of film or liquid form, which is typically highly aggressive in this setting resistant to chemotherapy she was recently treated with. She could have a multifactorial picture of combination pneumonitis, pneumonia/infection, lymphangitic spread of disease involving the lung. I raised the issue of advanced directives should her respiratory condition worsen. If she is no longer able to breathe adequately on CPAP, the next would be intubation. This could be a terminal event in the sense she might not be able to come off intubation if carcinomatosis is causing her progressive symptoms. I explained pneumonitis typically can recover on high-dose steroids but can take many days; pneumonitis can also be lethal. The issue for Urvashi is she has metastatic, recurrent lung cancer involving lungs, bone and adrenals, as well as skin, and after two different treatments has not overall improved. Urvashi and her took all this in, asked some questions, did not make any decisions on the spot but thanked me for the discussion. Meanwhile, I recommend that we continue current treatment but that they put some thought to if-then scenarios should her respiratory function continue to deteriorate. Urvashi expressed a strong desire not to be in pain or discomfort and to continue to receive anxiolytics as anxiety is a major issue for her. IMPRESSION: 1. Metastatic adenocarcinoma of lung, PDL-1 high, status post one treatment with pembrolizumab complicated by grade 4 shortness of breath and respiratory distress. 2. Presumptive multifactorial pneumonitis recovered on steroids followed by initial dose of carboplatin/pemetrexed as next-line palliative treatment for her cancer. Unfortunately, within 10 days of this last dose, she has developed progressive respiratory symptoms which she describes as sudden in onset but are severe requiring CPAP supplemental oxygen. As yet she does not require pressor support. She is on high-dose corticosteroids, broad-spectrum antibiotics and anxiolytics. She is currently clinically stable with Eastern Cooperative Oncology Group (ECOG) performance status for tachypneic but stably so and able to talk in short sentences at the bedside. RECOMMENDATIONS: 1. Continue cefepime, vancomycin, piperacillin-tazobactam. 2. Agree with periodic Lasix to attempt to diurese enough to dry out lungs without compromising blood pressure or central perfusion. 3. Continue methylprednisolone at current dose. 4. Advanced directives addressed but not conclusive with patient. She is aware of her are overall poor prognosis and of the relatively dire state of affairs currently. She would like to continue treating the pneumonitis actively. She and her will talk over DO NOT RESUSCITATE (DNR)/ DO NOT INTUBATE (DNI). I framed this discussion in the setting of any new worsening of her respiratory function despite all the current interventions, and the unlikelihood of her coming off a ventilator should she be intubated, and the likelihood such progression would be due to her cancer. I am physician compensation analyst this weekend and available as needed [phone]. Time Statement: 30 minutes was spent face to face with the patient, another 15 spent in coordination of care in discussion with Dr. Guerrero of hospitalist service. SAMUEL
[2016-12-15] MEDS: CEFEPIME HCL 2 GM in D5W MINI-BAG PLUS 50 ML IV SCH (19:59)
[2016-12-15] MEDS: PRAVASTATIN 20 MG TAB PO SCH ×2 (20:08→21:49)
[2016-12-16] VITALS (12 sets, daily range): BP systolic 95–121; BP diastolic 54–73
[2016-12-16] MEDS: PIPERACILLIN/TAZOBACTAM SOD 3.375 GM in D5W MINI-BAG PLUS 50 ML IV SCH ×4 (00:07→12:12)
[2016-12-16] MEDS: LORazepam 2 MG/ML VIAL (J2060) IV PRN ×6 (00:07→21:36)
[2016-12-16] MEDS: methylPREDNISolone INJ 125 MG/2 ML VIAL (J2930) IV SCH ×3 (04:06→18:53)
[2016-12-16 04:36] LABS: ADD MANUAL DIFFER YES; DIFF SLIDE NUMBER 44; MEAN CORPUSCULAR HEMOGLOBIN 29.7 pg (27.0-33.0); MEAN CORPUSCULAR HGB CONC 32.6 g/dl (32.0-36.5); MEAN CORPUSCULAR VOLUME 91.1 fl (80.0-96.0); PLATELET COUNT, AUTOMATED 335 k/mm3 (150-450); RED CELL DISTRIBUTION WIDTH 16.7 % (11.5-14.5)
[2016-12-16 04:37] LABS: WHITE BLOOD COUNT 34.7 K/mm3 (4.0-10.0)
[2016-12-16 04:59] LABS: ALBUMIN 2.4 GM/DL (3.2-5.2); ALBUMIN/GLOBULIN RATIO 0.67 (1.00-1.93); BILIRUBIN,TOTAL 0.5 MG/DL (0.2-1.0); CALCIUM LEVEL 9.1 MG/DL (8.5-10.1); CREATININE FOR GFR 1.12 MG/DL (0.55-1.02); MAGNESIUM LEVEL 2.3 MG/DL (1.8-2.4); POTASSIUM SERUM 3.8 MEQ/L (3.5-5.1)
[2016-12-16 05:06] LABS: ANISOCYTOSIS 1+; BANDS 3 % (< 11); NUCLEATED RED BLOOD CELL 1 % (0-0)
[2016-12-16 05:08] LABS: TOXIC GRANULATION 1+
[2016-12-16] MEDS: HEPARIN SOD (PORCINE) 5000 UNITS/ML VIAL SC SCH ×3 (06:05→21:35)
[2016-12-16] MEDS: CEFEPIME HCL 2 GM in D5W MINI-BAG PLUS 50 ML IV SCH ×2 (07:02→18:57)
[2016-12-16] MEDS: LEVALBUTEROL 1.25 MG/0.5 ML CONCENTRATE NEB INH SCH ×4 (07:49→19:28)
[2016-12-16] MEDS: buPROPion **XL** TABLET 150MG (WELLBUTRIN XL) PO SCH (08:30)
[2016-12-16] MEDS: OMEPRAZOLE 20 MG CAP PO SCH (08:30)
[2016-12-16] MEDS: FLUoxetine 20 MG CAP PO SCH (08:30)
[2016-12-16] MEDS: ASCORBIC ACID 500 MG TAB PO SCH (08:30)
[2016-12-16] MEDS: FOLIC ACID 1 MG TAB PO SCH (08:31)
[2016-12-16] MEDS: VITAMIN D 1,000 INTERNATIONAL UNITS TABLET PO SCH (08:31)
[2016-12-16] MEDS: CYANOCOBALAMIN 500 MCG TAB PO SCH (08:31)
[2016-12-16] MEDS: ASPIRIN 81 MG ENTERIC TAB PO SCH (08:31)
[2016-12-16] MEDS: VANCOMYCIN HCL 1,000 MG, VIAL MATE ADAPTER 1 EACH in D5W 250 ML IV SCH (08:32)
[2016-12-16] MEDS: SODIUM CHLORIDE 0.9% INJ 10 ML SYR IV SCH (09:50)
[2016-12-16] MEDS: FLUCONAZOLE 400 MG in APPROPRIATE DILUENT 1 EA IV SCH (11:29)
--- NOTE | 2016-12-16 11:36 | REP ---
Clinical: Pneumonia. Follow-up. Comparison: 12/15/2016. Findings: Allowing for variations in technique, examination is relatively stable. Chronic changes are appreciated along with superimposed infiltrates (left greater than right). No pneumothorax. Visualized mediastinum and cardiac silhouette are stable. Skeletal structures intact. Impression: Relatively stable appearance to the chronic changes and superimposed acute opacities. Signed by Matheus Rawls MD 12/16/2016 11:29 A
[2016-12-16] MEDS ORDERED: SLF 3 ML SYR IV PRN (15:30)
--- NOTE | 2016-12-16 18:48 | IPN ---
DATE: 12/16/2016 Ms. Magana had a more restful night. She is breathing easier, she was taking Ativan overnight, had some comfort from using bilevel positive airway pressure (BiPAP). Temperature 98, pulse 112, respiratory rate 28, blood pressure 110/62, 99% on 50% BiPAP. Intake and output notable for a negative fluid balance of -800 mL. She is awake, appropriately interactive, appears somewhat anxious, thin-appearing. Mucous membranes are tacky. Neck supple, thin. Breathing is symmetrical, I:E ratio is 1:4, somewhat decreased aeration throughout, no wheezes. Heart is distant sounding, normal S1, S2, tachycardic. Abdomen soft, doughy, nontender. No significant lower extremity edema. White count 34.7, hemoglobin 9.9, and platelets of 335. Creatinine is 1.12. Chest x-ray done today shows no acute changes. My assessment is as follows: This is a 61-year-old with hypoxic respiratory failure on bilevel positive airway pressure (BiPAP). Plan is as follows: 1. Respiratory. The patient has done generally well compared to several days ago. She is getting symptomatic relief with BiPAP and Ativan. She has had some hemoptysis, another episode later today, which was a relatively small amount. CT scan would be useful to assess underlying process in the lung, possible empyema or abscess. Unfortunately, the patient is having difficulty lying flat and is somewhat anxious. Until she is able to lay flat, will not be able to get a CT scan to further assess. 2. The patient has non-small cell lung cancer. There is no curative therapy available to her. She has discussed this case with Dr. Hathaway. She is yet to make a decision about the possibility of what she would like for advanced directives. 3. The patient has diastolic heart failure. She appears relatively compensated. We did give additional Lasix. I believe she is dry or at least euvolemic. 4. The patient has insomnia and anxiety, is having some help from benzodiazepines. 5. The patient has rheumatoid arthritis. 6. The patient has history of non-ST elevation myocardial infarction status post stenting. Elevated troponin during her stay. 7. The patient has dyslipidemia, on a statin. 8. The patient has a poor prognosis based on the advanced stage of her cancer and her presentation.
[2016-12-16] MEDS: oxyCODONE 5MG TAB PO PRN (19:47)
[2016-12-16] MEDS: PRAVASTATIN 20 MG TAB PO SCH (21:34)
[2016-12-16] MEDS: SLF 3 ML SYR IV SCH (21:36)
[2016-12-16] MEDS: LEVALBUTEROL 1.25 MG/0.5 ML CONCENTRATE NEB INH PRN (23:51)
[2016-12-17] VITALS (11 sets, daily range): BP systolic 106–131; BP diastolic 56–79
[2016-12-17] MEDS: PIPERACILLIN/TAZOBACTAM SOD 3.375 GM in D5W MINI-BAG PLUS 50 ML IV SCH ×5 (00:25→23:45)
[2016-12-17] MEDS: LORazepam 2 MG/ML VIAL (J2060) IV PRN ×5 (02:56→21:21)
[2016-12-17] MEDS: methylPREDNISolone INJ 125 MG/2 ML VIAL (J2930) IV SCH ×3 (02:56→18:11)
[2016-12-17] MEDS: LEVALBUTEROL 1.25 MG/0.5 ML CONCENTRATE NEB INH PRN ×3 (03:21→21:10)
[2016-12-17] MEDS: SLF 3 ML SYR IV SCH ×3 (06:19→21:20)
[2016-12-17] MEDS: HEPARIN SOD (PORCINE) 5000 UNITS/ML VIAL SC SCH ×3 (06:19→21:22)
[2016-12-17 06:50] LABS: ADD MANUAL DIFFER YES; DIFF SLIDE NUMBER 25; MEAN CORPUSCULAR HEMOGLOBIN 28.9 pg (27.0-33.0); MEAN CORPUSCULAR HGB CONC 31.3 g/dl (32.0-36.5); MEAN CORPUSCULAR VOLUME 92.4 fl (80.0-96.0); PLATELET COUNT, AUTOMATED 395 k/mm3 (150-450)
[2016-12-17 06:52] LABS: WHITE BLOOD COUNT 31.9 K/mm3 (4.0-10.0)
[2016-12-17 07:12] LABS: ALBUMIN 2.3 GM/DL (3.2-5.2); ALBUMIN/GLOBULIN RATIO 0.72 (1.00-1.93); ALKALINE PHOSPHATASE 119 U/L (45-117); ALT/SGPT 31 U/L (12-78); ANION GAP 11 MEQ/L (8-16); AST/SGOT 18 U/L (15-37); BILIRUBIN,TOTAL 0.5 MG/DL (0.2-1.0); BLOOD UREA NITROGEN 36 MG/DL (7-18); CALCIUM LEVEL 8.3 MG/DL (8.5-10.1); CARBON DIOXIDE LEVEL 31 MEQ/L (21-32); CHLORIDE LEVEL 107 MEQ/L (98-107); CREATININE FOR GFR 0.93 MG/DL (0.55-1.02); GLOMERULAR FILTRATION RATE > 60.0 (>51); GLUCOSE, FASTING 134 MG/DL (70-105); MAGNESIUM LEVEL 2.6 MG/DL (1.8-2.4); POTASSIUM SERUM 3.4 MEQ/L (3.5-5.1); SODIUM LEVEL 149 MEQ/L (136-145); TOTAL PROTEIN 5.5 GM/DL (6.4-8.2)
[2016-12-17 07:38] LABS: ANISOCYTOSIS 1+; BANDS 1 % (< 11)
[2016-12-17] MEDS: CEFEPIME HCL 2 GM in D5W MINI-BAG PLUS 50 ML IV SCH ×2 (08:00→18:11)
[2016-12-17] MEDS ORDERED: POTASSIUM CHLORIDE 10 MEQ SR TABLET PO ONE (08:15)
[2016-12-17] MEDS: oxyCODONE 5MG TAB PO PRN (08:30)
[2016-12-17] MEDS: VANCOMYCIN HCL 1,000 MG, VIAL MATE ADAPTER 1 EACH in D5W 250 ML IV SCH (08:30)
--- NOTE | 2016-12-17 09:06 | REP ---
Clinical: Pneumonia. Comparison: 12/16/2016, 12/15/2016. Findings: Right-sided [id number] in stable position. Mediastinum, cardiac silhouette, and lung bone are essentially unchanged. Acute on chronic right basilar pleuroparenchymal changes suggesting superimposed effusion and infiltrate as well as scarring and diffuse opacity throughout the left hemithorax are again noted. No pneumothorax. Skeletal structures are intact. Impression: Continued evidence for chronic changes and superimposed left lung infiltrates and right basilar effusion and atelectasis/consolidation. No significant change from prior examination. Signed by Matheus Rawls MD 12/17/2016 08:24 A
--- NOTE | 2016-12-17 09:33 | REP ---
Clinical: Follow up pneumonia and effusion. Comparison: 12/13/2016, 12/09/2016. Findings: Diffuse chronic bilateral interstitial changes, bronchiectasis, and scattered emphysematous changes are similar through 07/25/2016. Right-sided postsurgical changes and associated pleuroparenchymal scarring with chronic area of consolidation with air bronchograms in the posterior right upper lung zone are also identified and remain stable. Superimposed diffuse airspace disease involving a significant portion of the left upper lobe and lower lobe as well as scattered areas of the right mid to lower lung zone appear mildly improved when compared to 12/13/2016. Small bilateral pleural effusions (left greater than right) are similar to prior examinations dating through 12/09/2016 and overall increased when compared to 07/25/2016. Lack of contrast limits evaluation for underlying enhancing nodules or adenopathy. Atherosclerotic changes to the thoracic aorta remains stable. Heart is upper limits of normal and without significant pericardial effusion. No pneumothorax. Impression: 1. Bilateral airspace disease is again appreciated (left greater than right) which may be minimally improved when compared to 12/13/2016. 2. Small bilateral pleural effusions (left greater than right) are similar to prior examination. 3. Stable underline chronic changes and postsurgical changes. Underlying adenopathy or nodule/mass may be obscured by the above acute and chronic changes and cannot be excluded. Signed by Matheus Ralws MD 12/17/2016 09:32 A
--- NOTE | 2016-12-17 10:16 | PHACANCOPD ---
PHARMACY VANCOMYCIN DOSING Pt Demographics Demographics Patient Age:61 , Weight:56.800 , Gender: female Adjusted Body Weight Date: 12/17/16, Adjusted Body Weight: Kg Events Past 24 Hours Events Past 24 Hours: YES: Change in CrCl, NO: Dialysis, Diuretic Therapy, Fever, Elevation in WBC, Pending Diagnostics , Pending Procedures, Other Vancomycin Vancomycin indication: acute resp failure Vancomycin Target Ranges: 15-20 mcg/ml Vancomycin Load Y/N: No Load Dose Date Time Vancomycin Load Dose: Date: Time: Vancomycin Dose Date: 12/17/16. Current Vancomycin Dose: [1g IV q24h] Date: 12/13/16. Current Vancomycin Dose: [1g IV q12h] Intermittent Dosing?: No Labs Labs Item Value Date Time Vancomycin Level Trough 19.4 UG/ML 12/14/16 1901 Vancomycin Level Trough 18.8 UG/ML 12/17/16 0656 Item Value Date Time White Blood Count 34.7 K/mm3 *H 12/16/16 0420 White Blood Count 31.9 K/mm3 *H 12/17/16 0623 Creatinine 0.74 MG/DL 12/15/16 0912 Creatinine 1.12 MG/DL H # 12/16/16 0420 Creatinine 0.93 MG/DL 12/17/16 0623 Micro Microbiology 12/13/16 Blood Culture - Preliminary, Resulted No Growth after 72 hours. All specime... 12/13/16 Blood Culture - Preliminary, Resulted No Growth after 72 hours. All specime... 12/15/16 Gram Stain - Final, Complete 12/15/16 Sputum Culture - Final, Complete Yeast Like Organism Creatinine Clearance Date:12/17/16. Creatinine Clearance: [55 ml/min]. Assessment and Plan Maintaining Current Dose?: No Reason for dose change: Change in serum Cr, Trough too high Pharmacist Note Pharmacist Note Date: 12/17/16. Pharmacist note: today is day#5 of vancomycin therapy for acute respiratory failure secondary to non small cell lung cancer. She was initially started on vancomycin and zosyn, cefepime was added on 12/15, fluconazole IV was added on 12/16. Her SCr has fluctuated, I held last night's vancomycin dose and repeated a trough this morning which was in range. I reduced her dosing to 1g IV q24h. Sputum culture shows yeast-like organism, blood cultures have been NGTD. We will continue to monitor. Brannon Ribeiro Pharm.D. Dec 17, 2016 10:16
[2016-12-17] MEDS: FLUoxetine 20 MG CAP PO SCH (10:21)
[2016-12-17] MEDS: FOLIC ACID 1 MG TAB PO SCH (10:22)
[2016-12-17] MEDS: ASCORBIC ACID 500 MG TAB PO SCH (10:22)
[2016-12-17] MEDS: ASPIRIN 81 MG ENTERIC TAB PO SCH (10:22)
[2016-12-17] MEDS: OMEPRAZOLE 20 MG CAP PO SCH (10:22)
[2016-12-17] MEDS: buPROPion **XL** TABLET 150MG (WELLBUTRIN XL) PO SCH (10:22)
[2016-12-17] MEDS: CYANOCOBALAMIN 500 MCG TAB PO SCH (10:22)
[2016-12-17] MEDS: SODIUM CHLORIDE 0.9% INJ 10 ML SYR IV SCH (10:23)
[2016-12-17] MEDS: VITAMIN D 1,000 INTERNATIONAL UNITS TABLET PO SCH (10:25)
[2016-12-17] MEDS: FLUCONAZOLE 400 MG in APPROPRIATE DILUENT 1 EA IV SCH (10:26)
[2016-12-17] MEDS ORDERED: FUROSEMIDE 20 MG/2 ML VIAL (J1940) IV ONE (13:45)
--- NOTE | 2016-12-17 16:58 | IPN ---
DATE: 12/17/2016 Ms. Magana had some restful sleep last night. She is not describing any chest pain. She has still been quite anxious. She believes that the scheduled nebulizer therapy may be making her more anxious and make her heart race. Temperature 96.8, pulse 109, respiratory rate 32, blood pressure 113/61, 94% on hi-flow nasal cannula. She is awake, speaking in short sentences without accessory muscle use, although she is somewhat tachypneic. Breathing is symmetrical, somewhat more diminished on the right than the left. Heart is regular rate and rhythm, is tachycardic. Radial pulses are 2+. Capillary refill is less than 2 seconds. White cell count is 31.9, hemoglobin 9.4, platelets are 395. Sodium 149, potassium 3.4, creatinine 0.93. ASSESSMENT: This is a 61-year-old with hypoxic respiratory failure on intermittent bilevel positive airway pressure (BiPAP). PLAN: 1. Respiratory. Patient is, again, improved compared to several days ago. She has episodes where she requires bilevel positive airway pressure (BiPAP) to catch her breath, and she has been treated with broad-spectrum antibiotics for a potential underlying pneumonia. CT scan done today shows no increasing effusion on the left. It does not show much change when compared to previous. Certainly no evidence of underlying lung abscess. We did expand her therapy to include fluconazole and antifungals. She has been having intermittent episodes of small amounts of hemoptysis with sputum and cough. 2. Patient has non-small cell lung cancer. There is no curative therapy available to her. She has discussed this case with Dr. Hathaway. Currently, she is FULL CODE and pursuing care. 3. Patient has diastolic heart failure. I believe today I will give an additional dose of Lasix. 4. Patient has insomnia and anxiety. Ativan is helpful. 5. Patient has rheumatoid arthritis. 6. Patient has had elevated troponin during her stay. Most likely related to acute illness. 7. Patient has dyslipidemia. On a statin. Patient continues to have a poor prognosis. The patient is in an advanced stage of her cancer.
[2016-12-17] MEDS: PRAVASTATIN 20 MG TAB PO SCH (21:21)
[2016-12-18] VITALS (8 sets, daily range): BP systolic 100–126; BP diastolic 53–84
[2016-12-18] MEDS: LEVALBUTEROL 1.25 MG/0.5 ML CONCENTRATE NEB INH PRN ×5 (00:27→21:07)
[2016-12-18] MEDS: oxyCODONE 5MG TAB PO PRN ×4 (00:38→20:59)
[2016-12-18] MEDS: LORazepam 2 MG/ML VIAL (J2060) IV PRN ×5 (03:47→21:43)
[2016-12-18] MEDS: methylPREDNISolone INJ 125 MG/2 ML VIAL (J2930) IV SCH ×3 (03:47→18:26)
[2016-12-18] MEDS: PIPERACILLIN/TAZOBACTAM SOD 3.375 GM in D5W MINI-BAG PLUS 50 ML IV SCH ×4 (05:22→23:37)
[2016-12-18] MEDS: HEPARIN SOD (PORCINE) 5000 UNITS/ML VIAL SC SCH ×3 (05:23→21:28)
[2016-12-18] MEDS: SLF 3 ML SYR IV SCH ×3 (05:25→21:28)
[2016-12-18 06:28] LABS: ADD MANUAL DIFFER YES; DIFF SLIDE NUMBER 21; MEAN CORPUSCULAR HEMOGLOBIN 29.3 pg (27.0-33.0); MEAN CORPUSCULAR HGB CONC 32.2 g/dl (32.0-36.5); MEAN CORPUSCULAR VOLUME 91.2 fl (80.0-96.0); PLATELET COUNT, AUTOMATED 469 k/mm3 (150-450); RED CELL DISTRIBUTION WIDTH 16.8 % (11.5-14.5)
[2016-12-18 06:30] LABS: WHITE BLOOD COUNT 31.4 K/mm3 (4.0-10.0)
[2016-12-18 06:34] LABS: ALBUMIN 2.4 GM/DL (3.2-5.2); ALBUMIN/GLOBULIN RATIO 0.77 (1.00-1.93); ALKALINE PHOSPHATASE 123 U/L (45-117); ALT/SGPT 30 U/L (12-78); ANION GAP 11 MEQ/L (8-16); AST/SGOT 13 U/L (15-37); BILIRUBIN,TOTAL 0.5 MG/DL (0.2-1.0); BLOOD UREA NITROGEN 35 MG/DL (7-18); CALCIUM LEVEL 7.8 MG/DL (8.5-10.1); CARBON DIOXIDE LEVEL 29 MEQ/L (21-32); CHLORIDE LEVEL 107 MEQ/L (98-107); CREATININE FOR GFR 0.99 MG/DL (0.55-1.02); GLOMERULAR FILTRATION RATE > 60.0 (>51); GLUCOSE, FASTING 177 MG/DL (70-105); MAGNESIUM LEVEL 2.4 MG/DL (1.8-2.4); POTASSIUM SERUM 3.4 MEQ/L (3.5-5.1); SODIUM LEVEL 147 MEQ/L (136-145); TOTAL PROTEIN 5.5 GM/DL (6.4-8.2)
[2016-12-18] MEDS: CEFEPIME HCL 2 GM in D5W MINI-BAG PLUS 50 ML IV SCH ×2 (06:34→19:51)
[2016-12-18 07:22] LABS: BANDS 5 % (< 11); NUCLEATED RED BLOOD CELL 3 % (0-0)
[2016-12-18 07:23] LABS: ANISOCYTOSIS 1+; POIKILOCYTOSIS 1+
--- NOTE | 2016-12-18 07:48 | REP ---
Portable chest, 07:02 a.m.: Comparison is 12/17/2016. Acute on chronic right basilar changes are again identified, unchanged. Diffuse interstitial and alveolar opacity throughout the entire left lung, unchanged. Cardiac size is normal. Right IJ [id number] is again noted with the tip in the superior vena cava, unchanged. Impression: No significant interval change. Signed by Jaya Booker MD 12/18/2016 07:39 A
[2016-12-18] MEDS ORDERED: POTASSIUM CHLORIDE 10 MEQ SR TABLET PO ONE ×2 (08:15→12:00)
[2016-12-18] MEDS ORDERED: FUROSEMIDE 20 MG/2 ML VIAL (J1940) IV ONE (08:15)
--- NOTE | 2016-12-18 08:24 | IPN ---
DATE OF SERVICE: 12/18/2016 Ms. Magana was able to stay off the BiPAP for several hours last night. Breathing is easier. She is more rested. She did get some sleep. Temperature 96, pulse 104, respiratory rate 24, blood pressure 102/56, 96% on 45 % FiO2. She is awake, answering questions appropriately. Somewhat flattened. No anxious. Mucous membranes are moist. Neck is supple, thin. Breathing is symmetrical with improved aeration on the right. Coarse airway sounds throughout. No wheezes. No accessory muscle use. Heart: Regular rate and rhythm. It is 100-110 on exam. Abdomen is somewhat doughy, distended but nontender. Sodium is 147, potassium 3.4. BUN 35, creatinine 0.99. White cells count 31.4, hemoglobin 9.4. Chest x-ray is unchanged from previous. ASSESSMENT: This is a 61-year-old with hypoxic respiratory failure on intermittent BiPAP. PLAN: 1. Respiratory. Patient was able to have a CT scan done yesterday which does not show any worsening of her left sided effusion and certainly no target for drainage. She is continued on broad spectrum antibiotics and fluconazole based on fungal findings in sputum. She is on steroids for the possibility of biologic induced pneumonitis. 2. Patient has had small amounts of hemoptysis with cough and sputum production. The blood noted last night in her sputum was just a pinkish cast to a faint smearing according to the nursing staff. 3. Patient has non-small cell lung cancer. She has no curative therapy available to her. She remains FULL CODE. 4. Patient has diastolic heart failure. Will give an additional dose of Lasix today. We have been pursuing intermittent diuresis. 5. Patient has insomnia and anxiety, receiving Ativan as needed. 6. Rheumatoid arthritis. 7. Patient had elevated troponin. This is most likely related to her acute illness. No role for further workup at this time. 8. Patient has dyslipidemia on statin. 9. Patient has a poor prognosis. MTDD
[2016-12-18] MEDS: VANCOMYCIN HCL 1,000 MG, VIAL MATE ADAPTER 1 EACH in D5W 250 ML IV SCH (08:55)
[2016-12-18] MEDS: FOLIC ACID 1 MG TAB PO SCH (08:56)
[2016-12-18] MEDS: ASPIRIN 81 MG ENTERIC TAB PO SCH (08:56)
[2016-12-18] MEDS: ASCORBIC ACID 500 MG TAB PO SCH (08:56)
[2016-12-18] MEDS: buPROPion **XL** TABLET 150MG (WELLBUTRIN XL) PO SCH (08:57)
[2016-12-18] MEDS: FLUoxetine 20 MG CAP PO SCH (08:57)
[2016-12-18] MEDS: CYANOCOBALAMIN 500 MCG TAB PO SCH (08:57)
[2016-12-18] MEDS: OMEPRAZOLE 20 MG CAP PO SCH (08:57)
[2016-12-18] MEDS: SODIUM CHLORIDE 0.9% INJ 10 ML SYR IV SCH (08:58)
[2016-12-18] MEDS: VITAMIN D 1,000 INTERNATIONAL UNITS TABLET PO SCH (09:05)
[2016-12-18] MEDS: FLUCONAZOLE 400 MG in APPROPRIATE DILUENT 1 EA IV SCH (11:26)
[2016-12-18] MEDS: PRAVASTATIN 20 MG TAB PO SCH (20:59)
[2016-12-19] VITALS (7 sets, daily range): BP systolic 119–143; BP diastolic 63–67; O2SAT 96
[2016-12-19] MEDS: methylPREDNISolone INJ 125 MG/2 ML VIAL (J2930) IV SCH ×3 (02:22→18:04)
[2016-12-19] MEDS: LORazepam 2 MG/ML VIAL (J2060) IV PRN ×7 (02:53→23:52)
[2016-12-19] MEDS: LEVALBUTEROL 1.25 MG/0.5 ML CONCENTRATE NEB INH PRN ×6 (03:02→21:54)
[2016-12-19] MEDS: PIPERACILLIN/TAZOBACTAM SOD 3.375 GM in D5W MINI-BAG PLUS 50 ML IV SCH ×2 (05:29→12:51)
[2016-12-19] MEDS: SLF 3 ML SYR IV SCH ×3 (05:29→21:38)
[2016-12-19] MEDS: HEPARIN SOD (PORCINE) 5000 UNITS/ML VIAL SC SCH ×2 (05:30→14:16)
[2016-12-19 05:55] LABS: ADD MANUAL DIFFER YES; DIFF SLIDE NUMBER 13; MEAN CORPUSCULAR HEMOGLOBIN 29.1 pg (27.0-33.0); MEAN CORPUSCULAR HGB CONC 31.5 g/dl (32.0-36.5); MEAN CORPUSCULAR VOLUME 92.4 fl (80.0-96.0)
[2016-12-19 05:58] LABS: PLATELET COUNT, AUTOMATED 615 k/mm3 (150-450)
[2016-12-19 06:14] LABS: ALBUMIN 2.6 GM/DL (3.2-5.2); ALBUMIN/GLOBULIN RATIO 0.81 (1.00-1.93); ALKALINE PHOSPHATASE 137 U/L (45-117); ALT/SGPT 29 U/L (12-78); ANION GAP 9 MEQ/L (8-16); AST/SGOT 13 U/L (15-37); BILIRUBIN,TOTAL 0.5 MG/DL (0.2-1.0); BLOOD UREA NITROGEN 37 MG/DL (7-18); CALCIUM LEVEL 8.8 MG/DL (8.5-10.1); CARBON DIOXIDE LEVEL 30 MEQ/L (21-32); CHLORIDE LEVEL 109 MEQ/L (98-107); CREATININE FOR GFR 0.93 MG/DL (0.55-1.02); GLOMERULAR FILTRATION RATE > 60.0 (>51); GLUCOSE, FASTING 167 MG/DL (70-105); MAGNESIUM LEVEL 2.4 MG/DL (1.8-2.4); SODIUM LEVEL 148 MEQ/L (136-145); TOTAL PROTEIN 5.8 GM/DL (6.4-8.2)
[2016-12-19 06:31] LABS: ANISOCYTOSIS 1+
[2016-12-19 06:32] LABS: POLYCHROMASIA 1+
[2016-12-19] MEDS: CEFEPIME HCL 2 GM in D5W MINI-BAG PLUS 50 ML IV SCH (06:52)
--- NOTE | 2016-12-19 08:32 | REP ---
A portable chest, 07:01 a.m., single AP view, the patient semi upright: Comparison is 12/18/2016. Acute on chronic right basilar lung changes are again identified and are unchanged. Diffuse interstitial and alveolar infiltrates are again identified throughout the left lung. This is unchanged. Cardiac size appears normal. Right IJ [id number] catheter is again identified, unchanged. Impression: There is no significant interval change. Signed by Jaya Booker MD 12/19/2016 08:23 A
[2016-12-19] MEDS ORDERED: FLUCONAZOLE 100 MG TAB PO SCH (09:00)
[2016-12-19] MEDS: buPROPion **XL** TABLET 150MG (WELLBUTRIN XL) PO SCH (09:02)
[2016-12-19] MEDS: VANCOMYCIN HCL 1,000 MG, VIAL MATE ADAPTER 1 EACH in D5W 250 ML IV SCH (09:02)
[2016-12-19 09:03] LABS: ABG BASE EXCESS 3.1 (-2.0-2.0); ABG HCO3 28.9 MEQ/L (22.0-26.0); ABG PARTIAL PRESSURE CO2 50.4 mmHg (35.0-45.0); ABG PARTIAL PRESSURE O2 98.3 mmHg (75.0-100.0); ABG STANDARD HCO3 27.2 MEQ/L (22.0-26.0); ABG TOTAL CO2 30.5 MEQ/L (22.0-29.0); ABG pH (ARTERIAL) 7.377 UNITS (7.350-7.450)
[2016-12-19] MEDS: VITAMIN D 1,000 INTERNATIONAL UNITS TABLET PO SCH (09:03)
[2016-12-19] MEDS: FOLIC ACID 1 MG TAB PO SCH (09:03)
[2016-12-19] MEDS: ASCORBIC ACID 500 MG TAB PO SCH (09:03)
[2016-12-19] MEDS: CYANOCOBALAMIN 500 MCG TAB PO SCH (09:03)
[2016-12-19] MEDS: FLUoxetine 20 MG CAP PO SCH (09:03)
[2016-12-19] MEDS: OMEPRAZOLE 20 MG CAP PO SCH (09:03)
[2016-12-19] MEDS: SODIUM CHLORIDE 0.9% INJ 10 ML SYR IV SCH (09:04)
[2016-12-19] MEDS: ASPIRIN 81 MG ENTERIC TAB PO SCH (09:04)
[2016-12-19] MEDS ORDERED: FUROSEMIDE 40 MG/4 ML VIAL (J1940) IV ONE (10:30)
--- NOTE | 2016-12-19 10:40 | IPN ---
DATE: 12/19/2016 Ms. Magana had a rough night last night. She required her BiPAP. Yesterday, it had been going well. She was mainly on nasal cannula, but last night she was short of breath. She is not producing significant amounts of sputum. She has been coughing. Temperature 95.5. Pulse 133. Respiratory rate 30. Blood pressure 143/65. 94% oxygen saturation. Weight is 55.2 kg. She is awake, does not appear particularly anxious. Breathing is symmetrically diminished. I:E ratio is 1:4. Coarse airway sounds throughout. Decreased aeration throughout. Heart is tachycardic. Radial pulses 2+. Capillary refill is less than 2 seconds. Abdomen soft, doughy, hyperactive bowel sounds. White cell count 38, hemoglobin 9.7 and platelets of 615. Sodium 148, BUN 37, creatinine 0.93. ASSESSMENT: This is a 61-year-old with hypoxic respiratory failure on intermittent BiPAP. PLAN: 1. Respiratory. The patient's respiratory status is decreased from yesterday. ABG shows some CO2 retention with a normal pH and what is likely relative hypoxia in the setting of BiPAP and supplemental oxygen. She is continued on steroids for suspected pneumonitis. The patient has had no further hemoptysis reported. She is being treated with Pseudomonas coverage, methicillin-resistant Staphylococcus aureus (MRSA) coverage, and antifungal coverage. The original plan had been to discontinue antibiotics tomorrow, but it is unclear to me what her respiratory change is from. It could be from mucus plugging or could be due to advance of her illness. Consider acute diastolic chf . 2. The patient has nonsmall lung cancer. There is no curative therapy available to her. I have discussed this case by phone with Dr. Leslie Hathaway who has had advanced directives discussions even today with the patient. 3. The patient has history of diastolic heart failure. Will given an additional dose of diuresis today. 4. The patient has insomnia and anxiety. Has been receiving Ativan as needed. She does not seem particularly anxious to me at this point. 5. The patient has rheumatoid arthritis. 6. The patient had elevated troponins during her stay. 7. The patient has dyslipidemia and is on a statin. 8. The patient has a poor prognosis and would clearly qualify for hospice should she wish to go that route. [facility]
--- NOTE | 2016-12-19 13:13 | IPN ---
MEDICAL ONCOLOGY INPATIENT FOLLOWUP DATE OF SERVICE: 12/19/2016 At the bedside this morning, Urvashi is breathing with the bilateral positive airway pressure (BiPAP) with labored breathing. She had a brief but transient improvement of her pulse oximetry, heart rate, and overall oxygenation in the weekend but is declining again in the last 12 hours. She remained on high-dose steroids, antibiotics were broadened to include antifungals, off the BiPAP, on nasal cannula in order to talk. She appears weak and drained. At the bedside, I spoke with her and Ed about the likelihood of cancer progression, for increasing fatigue, and the increasing certainty she would need respirator management in order to continue oxygenation, and a poor prognosis once on a respirator. I explicitly stated Hospice may be the appropriate choice at present, offering comfort measures on the extreme of nonintervention, continuing antibiotics and steroids at the other end. We also discussed cardiopulmonary resuscitation (CPR) and whether she would want resuscitation should her heart stop. Overall, I think Urvashi has an increasingly poor prognosis, pneumonitis is less and less likely the cause of her hypoxia, lymphangitic spread of her lung cancer more and more likely. She never really has recovered or improved significantly since her hospitalization, now in the first cycle of chemotherapy after a major reaction to immunotherapy. Ed asked for his sister, Florencia Magana, to be involved. She joined us. She expressed interest in Urvashi's children being present for a discussion. I asked Ed, Urvashi, and Florencia to take some time this morning to consider our discussion and consider DO NOT RESUSCITATE (DNR)/DO NOT INTUBATE (DNI) and end-of-life care. I am increasingly suspicious she has lymphangitic progression of her disease despite an apparent stable chest CT over the weekend. This chest CT continues to show bilateral airspace disease, left greater than right, possibly minimally improved with bilateral small pleural effusions. Clinically, overall, Urvashi is doing much worse today than 3 days ago. 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 Within 10 days of receiving this, Urvashi was again hospitalized with progressive hypoxia, air hunger. Found to have diffuse bilateral ground-glass opacities on CT, which are mostly stable, with minimal to no clinical improvement on high-dose steroids, antibiotics, and antifungals. My strong suspicion is she has lung carcinomatosis/lymphangitic spread of [id number]-pzwc lung carcinoma as the root of her symptoms and notoriously aggressive and difficult to treat form of lung cancer that is refractory to both immunotherapy and standard chemotherapy. Her ECOG (Eastern Cooperative Oncology Group) performance status is currently 4. She is dependent on BiPAP. extensive anxiolytic medications, remains tachycardiac, tachypneic, and comfortable. RECOMMENDATIONS: I spoke at length with Urvashi and her today about letting go of active treatment and embracing an end-of-life protocol, specifically raising the question of DNR and DNI. They still wanted to consider thinking about this. I will [place] back with them later today to discuss it further. Meanwhile, recommend continue current therapy.
[2016-12-19] MEDS ORDERED: SCOPOLAMINE 1.5 MG TRANSDERMAL TD PRN (16:30)
[2016-12-19] MEDS: oxyCODONE 5MG TAB PO PRN (16:39)
--- NOTE | 2016-12-19 19:45 | IPN ---
DATE: 12/19/2016 Since this morning Urvashi has elected for DO NOT RESUSCITATE/DO NOT INTUBATE, comfort measures. She is currently reclining, responding to touch, breathing at approximately 35, heart rate in the 120s, bilevel positive airway pressure (BiPAP) on. Antibiotics have been discontinued. Corticosteroids are continued. Overall, subjectively she appears somewhat less distressed than earlier in the day. Family is gathered at the bedside. I spoke with her son over the phone. He is on his way. It has been determined Urvashi is not able to transfer to residence hospice. I answered all the family's questions at the bedside. They are concerned, of course, about the duration of any distress, and I emphasized comfort measures mean attending to symptoms. If at some point BiPAP is distressing for the patient, this can be discontinued, but currently it is a comfort measure as well. IMPRESSION: Progressive metastatic ghp-gaqnp-ptox lung carcinoma, adenocarcinoma, failed immunotherapy and carboplatin/pemetrexed with likely lymphangitic spread of disease as well as bone, adrenal, and skin involvement, now on BiPAP, oxygen dependent, tachypnic, tachycardiac, on comfort measures. Life expectancy is short. I agree with inpatient comfort measure plan. The patient's son and daughter are on their way to the bedside from out of state. PLAN: Continue current care. I will follow intermittently.
[2016-12-19] MEDS: MORPHINE 2 MG/ML 1ML SYRINGE IV PRN (23:43)
[2016-12-20 00:08] VITALS: O2SAT 94
[2016-12-20] MEDS: MORPHINE 2 MG/ML 1ML SYRINGE IV PRN ×9 (00:23→22:42)
[2016-12-20] MEDS: methylPREDNISolone INJ 125 MG/2 ML VIAL (J2930) IV SCH ×3 (03:16→19:02)
[2016-12-20] MEDS: LORazepam 2 MG/ML VIAL (J2060) IV PRN ×9 (03:38→22:41)
[2016-12-20 04:49] VITALS: O2SAT 92
[2016-12-20] MEDS: SLF 3 ML SYR IV SCH ×3 (06:00→22:00)
--- NOTE | 2016-12-20 08:04 | IPN ---
DATE: 12/20/2016 Ms. Magana was made comfort care yesterday. She expressed her personal wish to have no further treatment and to be made comfortable. She requested morphine and Ativan specifically. Her family came into town last night and is at bedside this morning. She is comfortable, sleepy but arousable. No respiratory distress. No laboratories to review. ASSESSMENT: This is a 61-year-old with hypoxic respiratory failure on intermittent BiPAP. PLAN: 1. Respiratory. The patient will continue on BiPAP to the extent that it provides her comfort. We will continue with morphine and Ativan. I think that at this point it is reasonable to start a morphine drip to get better control of her dyspnea and pain. 2. The patient has nonsmall lung cancer. I have discussed this case by phone with Dr. Leslie Hathaway over the course of the last two days. 3. The patient has diastolic heart failure, which would appear to be compensated. 4. The patient has anxiety and has received comfort from Ativan. 5. The patient has rheumatoid arthritis. 6. The patient had elevated troponins during her stay. 7. The patient has dyslipidemia. I would anticipate she pass away during this hospitalization.
[2016-12-20 09:00] VITALS: BP 134/63
[2016-12-20] MEDS: MORPHINE SULF IN 0.9% NACL 100 MG in APPROPRIATE DILUENT 1 EA IV SCH ×2 (09:17)
[2016-12-20] MEDS: SODIUM CHLORIDE 0.9% INJ 10 ML SYR IV SCH (09:28)
--- NOTE | 2016-12-20 21:40 | IPN ---
DATE: 12/20/2016 Medical oncology inpatient followup. Urvashi has been transferred out of the ICU. She is on comfort measures, BiPap in place, monitors off, morphine drip as needed bolus. Her respiratory rate is now in the 20s. She appears calmer, is intermittently wakeful. Extended family at the bedside. I spoke at length with her daughter and son. Her life expectancy is on the order of hours to days at this point. She is in no obvious distress. Metastatic adenocarcinoma of lung with skeletal, lung, adrenal, bone involvement likely lymphangitic spread leading to progressive respiratory compromise. Failed two lines of palliative chemotherapy, on comfort measures. Moribund. MTDD
[2016-12-21] MEDS: LORazepam 2 MG/ML VIAL (J2060) IV PRN ×5 (00:47→20:17)
[2016-12-21] MEDS: methylPREDNISolone INJ 125 MG/2 ML VIAL (J2930) IV SCH ×3 (03:33→18:58)
[2016-12-21] MEDS: SLF 3 ML SYR IV SCH ×3 (04:58→22:00)
[2016-12-21] MEDS: SODIUM CHLORIDE 0.9% INJ 10 ML SYR IV SCH (08:55)
[2016-12-21] MEDS: MORPHINE SULF IN 0.9% NACL 100 MG in APPROPRIATE DILUENT 1 EA IV SCH ×2 (10:39)
[2016-12-21] MEDS: MORPHINE 2 MG/ML 1ML SYRINGE IV PRN ×2 (12:26→13:21)
[2016-12-22] MEDS: methylPREDNISolone INJ 125 MG/2 ML VIAL (J2930) IV SCH ×2 (03:00→11:06)
[2016-12-22] MEDS: SLF 3 ML SYR IV SCH (06:00)
[2016-12-22] MEDS: MORPHINE SULF IN 0.9% NACL 100 MG in APPROPRIATE DILUENT 1 EA IV SCH ×2 (08:00)
--- NOTE | 2016-12-22 08:42 | DS.PDOC ---
Discharge Summary General Date of Admission Dec 13, 2016 at 06:37 Date of Discharge 12/22/16 - Specialist/Consultants Involve: Leslie Hathaway MD Discharge Summary PROCEDURES PERFORMED DURING STAY: [None]. DISCHARGE DIAGNOSES: 1. NSCLC s/p lobectomy, chemotherapy, and RT in 2001, recurred in 2017 with metastatic disease to adrenal, bone, and likely lymphangitic spread. 2. COPD. 3. CAD s/p STEMI s/p stent. 4. Dyslipidemia. 5. Rheumatoid arthritis. 6. Anxiety/depression. 7. Acute diastolic CHF treated with IV Lasix. COMPLICATIONS/CHIEF COMPLAINT: Acute Respiratory Failure. HOSPITAL COURSE: 61 yo female with history of NSCLC s/p lobectomy, chemo and RT. Patient had recurrence and started on Keytruda, following with oncology in [place]. Patient had severe hypoxic respiratory failure as adverse effect of Keytruda on previous hospital admission. Responded well to steroid therapy, but required supplemental oxygen on discharge. Patient restarted chemotherapy, and returned to hospital and admitted again for hypoxic respiratory failure. Patient with minimal response to therapy, and ultimately decided for comfort measures only. Patient ultimately succumbed to her illness and 12/22/16. ALLERGIES: Please see below. DISPOSITION: Patient TIME SPENT ON DISCHARGE: Greater than 30 minutes. Vital Signs/I&Os Vital Signs Date Time Temp Pulse Resp B/P (MAP) Pulse Ox O2 Delivery O2 Flow Rate FiO2 12/21/16 20:00 NIPPV (BIPAP/CPAP) 12/21/16 08:25 14 12/20/16 09:00 70 12/20/16 09:00 96.1 121 134/63 (86) 93 12/19/16 00:00 10.0 Microbiology Microbiology 12/13/16 Blood Culture - Final, Complete NO GROWTH AFTER 5 DAYS 12/13/16 Blood Culture - Final, Complete NO GROWTH AFTER 5 DAYS 12/15/16 Gram Stain - Final, Complete 12/15/16 Sputum Culture - Final, Complete Yeast Like Organism Discharge Medications Scheduled (Calcium 500+D 500-200 mg-Unit) 1 Tab Tab, 1 TAB PO DAILY, (Reported) Amoxicillin/Clavulanate Potas (Augmentin 875-125 mg) 1 Tab Tab, 875 MG PO BID, ( Reported) Ascorbic Acid (Ascorbic Acid) 500 Mg Tab, 500 MG PO DAILY, (Reported) Aspirin (Aspirin EC) 81 Mg Tabec, 81 MG PO DAILY, (Reported) Biotin (Vitamin H) (Biotin 5000) 5 Mg Cap, 10 MG PO DAILY, (Reported) Budesonide/Formoterol (Symbicort 160-4.5 Mcg/Act) 60 Puff/Inhaler Aers, 2 PUFFS INH BID, (Reported) Bupropion HCl (Bupropion HCl Xl) 300 Mg Tab, 300 MG PO DAILY, (Reported) Cholecalciferol (Vitamin D-3) 2,000 Unit Tab, 2,000 UNIT PO DAILY, (Reported) Cyanocobalamin (Vitamin B-12) 500 Mcg Tab, 500 MCG PO DAILY, (Reported) Dexamethasone (Dexamethasone) 4 Mg Tab, 4 MG PO BID, (Reported) STARTS BEFORE NEXT CHEMO ROUND 12/20 Fluoxetine HCl (Fluoxetine HCl) 60 Mg Tab, 60 MG PO DAILY, (Reported) Folic Acid (Folic Acid) 1 Mg Tab, 1 MG PO DAILY, (Reported) Lorazepam (Lorazepam) 1 Mg Tab, 1 MG PO QHS, (Reported) Omeprazole (Omeprazole) 20 Mg Cap, 20 MG PO DAILY, (Reported) Prasugrel Hydrochloride (Effient) 5 Mg Tab, 5 MG PO DAILY, (Reported) Pravastatin Sod (Pravastatin Sodium) 40 Mg Tab, 40 MG PO QHS, (Reported) Prednisone (Prednisone) 10 Mg Tab, 10 MG PO TAPER, (Reported) Take 4 tabs daily x 3 days, then 3 tabs daily x 3 days, then 2 tabs daily x 3 days, then 1 tab daily x 3 days and stop Scheduled PRN (Treximet 10-60 mg) 1 Tab Tab, 1 TAB PO ASDIRECTED PRN for MIGRAINE, (Reported) TAKE ONE FOR MIGRAINE. IF MIGRAINE IS STILL THERE TWO HOURS LATE, CAN TAKE ANOTHER. MDD= 2 TABS Albuterol Sulfate (Ventolin Hfa) 200 Puff/8 Gm Aers, 2 PUFFS INH QID PRN for SHORTNESS OF BREATH, (Reported) Albuterol Sulfate (Albuterol Sulfate) 2.5 Mg/0.5 Ml Neb, 2.5 MG INH QID PRN for SHORTNESS OF BREATH, (Reported) Clotrimazole (Clotrimazole) 1 % Cre, 1 DOSE TOP BID PRN for RASH, (Reported) APPLIES TO BUTTOCKS Levalbuterol Hydrochloride (Levalbuterol HCl) 0.63 Mg/3 Ml Neb, 0.63 MG INH QID PRN for SHORTNESS OF BREATH, (Reported) Metaxalone (Metaxalone) 800 Mg Tab, 800 MG PO TID PRN for MUSCLE SPASMS, ( Reported) Nitroglycerin (Nitrostat) 0.4 Mg Subl, 0.4 MG SL NITRO PRN for CHEST PAIN, ( Reported) Ondansetron HCl (Ondansetron HCl) 8 Mg Tab, 8 MG PO Q6H PRN for NAUSEA OR VOMITING, (Reported) Oxycodone HCl (Oxycodone HCl) 5 Mg Tab, 5 MG PO QID PRN for PAIN, (Reported) Prochlorperazine Maleate (Prochlorperazine Maleate) 10 Mg Tab, 10 MG PO Q8H PRN for NAUSEA OR VOMITING, (Reported) Rizatriptan Benzoate (Rizatriptan Benzoate Odt) 10 Mg Tab, 10 MG PO ASDIRECTED PRN for MIGRAINE, (Reported) Allergies Coded Allergies: Sulfa Drugs (Verified Adverse Reaction, Intermediate, GI UPSET, 12/08/16) JORDAN ORTEGA MD Dec 22, 2016 08:42
[2016-12-22] MEDS: SODIUM CHLORIDE 0.9% INJ 10 ML SYR IV SCH (09:45)
== END 2016-12-22 08:23 | disposition expired | DRG 136 ==
LOC: M ED 03:55 → M ED INP 06:37 → M ICU 08:20 → M MSPAV 12-20 17:44
PROVIDERS: ADMIT Internal Medicine; ATTEND Internal Medicine
DX: C34.90 Malignant neoplasm of unspecified part of unspecified bronchus or lung (principal); J96.01 Acute respiratory failure with hypoxia; I50.31 Acute diastolic (congestive) heart failure; E87.0 Hyperosmolality and hypernatremia; C77.9 Secondary and unspecified malignant neoplasm of lymph node, unspecified; J18.9 Pneumonia, unspecified organism; C79.2 Secondary malignant neoplasm of skin; C79.51 Secondary malignant neoplasm of bone; C79.70 Secondary malignant neoplasm of unspecified adrenal gland; J44.9 Chronic obstructive pulmonary disease, unspecified; Z66 Do not resuscitate; E78.5 Hyperlipidemia, unspecified; I25.10 Atherosclerotic heart disease of native coronary artery without angina pectoris; F41.9 Anxiety disorder, unspecified; F32.9 Major depressive disorder, single episode, unspecified; Z51.5 Encounter for palliative care; Z79.899 Other long term (current) drug therapy; Z79.82 Long term (current) use of aspirin; Z88.2 Allergy status to sulfonamides; I25.2 Old myocardial infarction; M06.9 Rheumatoid arthritis, unspecified; Z87.891 Personal history of nicotine dependence; Z68.22 Body mass index [BMI] 22.0-22.9, adult; E87.6 Hypokalemia